=== PATIENT | female | born 1995 | race Two or more races ===

== ENCOUNTER → 2021-02-11 10:17 | Outpatient (BNVA) | payer SELFPAY | DX: Z13.89 Encounter for screening for other disorder (principal) | CPT/HCPCS: 36415 ==

== ENCOUNTER 2021-05-12 09:18 | Outpatient (REF) | payer OTHER, SELFPAY ==
[2021-05-12 09:52] LABS: Binax Internal Control QC Valid; Binax Now Covid-19 Ag Negative (Negative)
[2021-05-12 11:47] LABS: Hematocrit 33.9 % (37.0-47.0); Hemoglobin 10.8 g/dl (12.0-16.0); Mean Corpuscular HGB Conc 31.9 g/dl (31.0-35.0); Mean Corpuscular Hemoglobin 32.3 pg (27.0-33.0); Mean Corpuscular Volume 101.5 fL (80.0-98.0); Mean Platelet Volume 11.8 fL (9.4-12.3); Platelet Count 307 X10*3/uL (160-400); Red Blood Count 3.34 X10*6/uL (4.20-5.50); Red Cell Distribution Width 12.5 % (11.0-16.0); White Blood Count 5.2 X10*3/uL (4.8-10.8)
[2021-05-12 12:05] LABS: Alanine Aminotransferase 12 U/L (0-31); Albumin Level 4.1 g/dL (3.5-5.0); Alkaline Phosphatase 61 U/L (39-117); Anion Gap 9 (12-20); Aspartate Amino Transferase 16 U/L (5-31); Bilirubin Direct < 0.2 mg/dL (0.0-0.5); Bilirubin Total 0.3 mg/dL (0.0-1.0); Blood Urea Nitrogen 10 mg/dL (9-16); Calcium 9.5 mg/dL (8.4-10.2); Carbon Dioxide 26 mmol/L (22-29); Chloride 105 mmol/L (96-108); Estimated Glomerular Filt Rate > 60; Glucose Random 99 mg/dL (60-115); Potassium 4.4 mmol/L (3.3-5.1); Sodium 136 mmol/L (135-145); Total Protein 7.5 g/dL (6.5-8.0)
[2021-05-12 12:24] LABS: Thyroid Stimulating Hormone 1.17 uIU/mL (0.32-4.0)
[2021-05-12 12:43] LABS: Monotest Negative (Negative)
== END 2021-05-12 09:19 | disposition home or self-care (01) ==
LOC: HO.HMGCLDS 09:18
PROVIDERS: Visit Provider Internal Medicine
DX: J06.9 Acute upper respiratory infection, unspecified (principal)
CPT/HCPCS: 36415; 80048; 80076; 84443; 85027; 86308

== ENCOUNTER 2021-06-24 13:22 | Emergency (ER) | payer OTHER, SELFPAY ==
--- NOTE | ~2021-06-24 | CT_ITS ---
EXAMINATION: CT HEAD WITHOUT CONTRAST CLINICAL INFORMATION: Headache COMPARISON: None TECHNIQUE: Contiguous axial imaging was performed from the skull base to vertex without intravenous administration of contrast. This CT examination was performed using dose optimization techniques as appropriate, variously including the following: *Automated exposure control *Adjustment of mA and/or kV according to patient size (this includes techniques or standardized protocols for targeted exams where dose is matched to indication/reason for exam; i.e. extremities or head) *Use of iterative reconstruction technique DLP: 640 mGy-cm FINDINGS: There is no evidence of acute intracranial hemorrhage or territorial infarction. No abnormal mass effect or midline shift is seen. Wilson to white matter differentiation is well preserved. No extra-axial fluid collections are identified. The ventricles are normal in size. There is no abnormal attenuation within the brain parenchyma. The osseous structures and soft tissues are normal. The mastoid air cells and visualized portions of the paranasal sinuses are well aerated. CT/CT head/brain wo con IMPRESSION: No acute intracranial pathology.
[2021-06-24 14:13] VITALS: BP 122/62; PULSE 62; RESP 18; TEMP 37.1; O2SAT 100; BMI 22.7
[2021-06-24 14:26] LABS: MANUAL DIFF FLAG NO
[2021-06-24 14:38] LABS: Basophils Percent Auto 0.8 % (0-2); Eosinophils Absolute Auto 0.2 X10*3/uL (0.0-0.4); Eosinophils Percent Auto 4.3 % (0-4); Hematocrit 36.5 % (37.0-47.0); Hemoglobin 11.7 g/dl (12.0-16.0); Lymphocytes Absolute Auto 1.8 X10*3/uL (1.2-4.9); Lymphocytes Percent Auto 34.7 % (20-40); Mean Corpuscular HGB Conc 32.1 g/dl (31.0-35.0); Mean Corpuscular Hemoglobin 32.2 pg (27.0-33.0); Mean Corpuscular Volume 100.6 fL (80.0-98.0); Mean Platelet Volume 10.9 fL (9.4-12.3); Monocytes Absolute Auto 0.5 X10*3/uL (0.1-1.2); Neutrophils Absolute Auto 2.7 x10*3/uL (2.0-8.3); Neutrophils Percent Auto 51.2 % (45-73); Platelet Count 326 X10*3/uL (160-400); Red Blood Count 3.63 X10*6/uL (4.20-5.50); Red Cell Distribution Width 12.7 % (11.0-16.0); White Blood Count 5.3 X10*3/uL (4.8-10.8)
[2021-06-24 14:45] LABS: Anion Gap 8 (12-20); Blood Urea Nitrogen 10 mg/dL (9-16); Calcium 10.2 mg/dL (8.4-10.2); Carbon Dioxide 29 mmol/L (22-29); Chloride 106 mmol/L (96-108); Creatinine Clr Calc Pharmacy 106.7; Estimated Glomerular Filt Rate > 60; Glucose Random 88 mg/dL (60-115); Potassium 4.3 mmol/L (3.3-5.1); Sodium 139 mmol/L (135-145)
[2021-06-24 15:24] LABS: Alanine Aminotransferase 13 U/L (0-31); Albumin Level 4.2 g/dL (3.5-5.0); Alkaline Phosphatase 59 U/L (39-117); Aspartate Amino Transferase 18 U/L (5-31); Bilirubin Direct < 0.2 mg/dL (0.0-0.5); Bilirubin Total 0.5 mg/dL (0.0-1.0); Total Protein 7.7 g/dL (6.5-8.0)
[2021-06-24 15:27] LABS: Immature Retic Fraction 16.3 % (3.0-15.9); Retic HGB Equivalent 37.6 pg (30.0-35.0); Reticulocyte Percent 1.7 % (0.5-1.8); Reticulocytes Absolute 0.063 X10*6/uL (0.026-0.095)
[2021-06-24 21:39] VITALS: BP 119/74; PULSE 64; RESP 16; O2SAT 98
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
== END 2021-06-24 23:40 | disposition home or self-care (01) ==
PROVIDERS: Physician Assistant; Emergency Provider Internal Medicine
DX: D57.1 Sickle-cell disease without crisis (principal); R51.9 Headache, unspecified; R53.83 Other fatigue; Z79.899 Other long term (current) drug therapy
CPT/HCPCS: 36415; 70450; 80048; 80076; 85025; 85045; 99284

== ENCOUNTER 2021-11-25 15:19 | Outpatient (REF) | payer OTHER, SELFPAY ==
[2021-11-25 15:40] LABS: Binax Internal Control QC Valid
[2021-11-25 15:45] LABS: Binax Now Covid-19 Ag Negative (Negative)
[2021-11-25 16:31] LABS: MANUAL DIFF FLAG NO
[2021-11-25 16:34] LABS: Basophils Percent Auto 0.6 % (0-2); Eosinophils Absolute Auto 0.2 X10*3/uL (0.0-0.4); Eosinophils Percent Auto 3.6 % (0-4); Hematocrit 36.2 % (37.0-47.0); Hemoglobin 11.8 g/dl (12.0-16.0); Imm Gran Abs Auto 0.02 X10*3/uL (0.00-0.03); Imm Gran Pct Auto 0.3 % (0.0-0.4); Lymphocytes Absolute Auto 1.7 X10*3/uL (1.2-4.9); Lymphocytes Percent Auto 26.6 % (20-40); Mean Corpuscular HGB Conc 32.6 g/dl (31.0-35.0); Mean Corpuscular Hemoglobin 32.6 pg (27.0-33.0); Mean Platelet Volume 11.3 fL (9.4-12.3); Monocytes Absolute Auto 0.5 X10*3/uL (0.1-1.2); Monocytes Percent Auto 7.7 % (2-11); Neutrophils Absolute Auto 3.9 x10*3/uL (2.0-8.3); Neutrophils Percent Auto 61.2 % (45-73); Platelet Count 307 X10*3/uL (160-400); Red Blood Count 3.62 X10*6/uL (4.20-5.50); Red Cell Distribution Width 12.7 % (11.0-16.0); White Blood Count 6.4 X10*3/uL (4.8-10.8)
[2021-11-25 16:52] LABS: Anion Gap 15 (12-20); Blood Urea Nitrogen 6 mg/dL (9-16); Calcium 9.6 mg/dL (8.4-10.2); Carbon Dioxide 25 mmol/L (22-29); Chloride 102 mmol/L (96-108); Estimated Glomerular Filt Rate > 60; Glucose Random 91 mg/dL (60-115); Potassium 4.1 mmol/L (3.3-5.1); Sodium 138 mmol/L (135-145)
[2021-11-25 17:14] LABS: Thyroid Stimulating Hormone 0.79 uIU/mL (0.32-4.0)
== END 2021-11-25 15:20 | disposition home or self-care (01) ==
LOC: HO.HMGCLDS 15:19
PROVIDERS: Visit Provider Emergency Medicine
DX: R53.83 Other fatigue (principal); J06.9 Acute upper respiratory infection, unspecified; R53.1 Weakness; Z20.822 Contact with and (suspected) exposure to COVID-19
CPT/HCPCS: 80048; 84443; 85025; 87811; C9803

== ENCOUNTER 2022-01-13 09:48 | Outpatient (REF) | payer OTHER, SELFPAY ==
[2022-01-13 12:04] LABS: Hematocrit 35.1 % (37.0-47.0); Hemoglobin 11.3 g/dl (12.0-16.0); Mean Corpuscular HGB Conc 32.2 g/dl (31.0-35.0); Mean Corpuscular Volume 99.4 fL (80.0-98.0); Mean Platelet Volume 11.4 fL (9.4-12.3); Platelet Count 312 X10*3/uL (160-400); Red Blood Count 3.53 X10*6/uL (4.20-5.50); Red Cell Distribution Width 12.3 % (11.0-16.0); White Blood Count 5.5 X10*3/uL (4.8-10.8)
[2022-01-13 13:19] LABS: Alanine Aminotransferase 10 U/L (0-31); Alkaline Phosphatase 56 U/L (39-117); Anion Gap 12 (12-20); Aspartate Amino Transferase 15 U/L (5-31); Bilirubin Total 0.4 mg/dL (0.0-1.0); Blood Urea Nitrogen 8 mg/dL (9-16); Calcium 9.4 mg/dL (8.4-10.2); Carbon Dioxide 26 mmol/L (22-29); Chloride 105 mmol/L (96-108); Cholesterol 239 mg/dL; Estimated Glomerular Filt Rate > 60; Glucose Fasting 96 mg/dL (60-99); HDL Cholesterol 49 mg/dL; LDL Cholesterol Calculated 178 mg/dl; Potassium 4.4 mmol/L (3.3-5.1); Sodium 139 mmol/L (135-145); Total Protein 7.3 g/dL (6.5-8.0); Triglycerides 62 mg/dL
== END 2022-01-13 09:49 | disposition home or self-care (01) ==
LOC: HO.WFDLDS 09:48
PROVIDERS: Visit Provider Hospitalist
DX: Z00.00 Encounter for general adult medical examination without abnormal findings (principal)
CPT/HCPCS: 36415; 80053; 80061; 84443; 85027

== ENCOUNTER 2022-05-26 11:26 | Outpatient (REF) | payer OTHER, SELFPAY ==
[2022-05-26 13:56] LABS: Iron 127 mcg/dL (30-160); Percent Iron Saturation 40 % (15-50); Total Iron Binding Capacity 316 mcg/dL (228-428); Unsaturated Iron Binding 189 ug/dL
[2022-05-26 14:16] LABS: Folate 15.7 ng/mL (> or = 4.0); Vitamin B12 943 pg/mL (200-900)
[2022-06-01 17:13] LABS: Vitamin C 0.4 mg/dL (0.3-2.7)
== END 2022-05-26 11:27 | disposition home or self-care (01) ==
LOC: HO.WFDLDS 11:26
PROVIDERS: Visit Provider Hospitalist
DX: D64.9 Anemia, unspecified (principal)
CPT/HCPCS: 36415; 82180; 82607; 82746; 83540

== ENCOUNTER 2022-11-06 15:02 | Inpatient (IN) | payer OTHER, SELFPAY ==
--- OUTSIDE RECORDS SUMMARY | 2022-11-06 15:04 | XMS_ITS | Continuity of Care Document ---
Author Name Unknown Organization [facility] Address [address] [place] [address]- Care Team Providers Care Supervisor Cigar Making Machine Name Role Phone Not on Staff, PCP Primary Care Physician Unavail able Encounter [facility] Date(s): 08/19/21 - 12/17/21 [facility] [address] [place] [address]- Attending Physician: Jason Moeller MD Patient Care team information Personnel Name: Not on Staff, PCP
--- OUTSIDE RECORDS SUMMARY | 2022-11-06 15:04 | XMS_ITS | Continuity of Care Document ---
Author Name Unknown Organization [facility] Address [address] [place] [address]- Care Team Providers Care Government Property Inspector Name Role Phone Not on Staff, PCP Primary Care Physician Unavail able Encounter [facility] Date(s): 07/23/21 - 08/22/21 [facility] [address] [place], [place] [address]
--- OUTSIDE RECORDS SUMMARY | 2022-11-06 15:04 | XMS_ITS | Continuity of Care Document ---
Author Name Unknown Organization [facility] Address [address] [place] [address]- Care Team Providers Care Wound Care Nurse Name Role Phone Not on Staff, PCP Primary Care Physician Unavail able Encounter [facility] Date(s): 11/17/21 - 12/17/21 [facility] [address] [place], [place] [address] Attending Physician: Rayo Crouch Admitting Physician: Rayo Crouch Referring Physician: Rayo Crouch Patient Care team information Personnel Name: Not on Staff, PCP
[2022-11-06 16:18] VITALS: BMI 22.0
[2022-11-06 18:00] VITALS: BP 130/62; PULSE 71; TEMP 36.4; O2SAT 99
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
[2022-11-06] MEDS: Milk of Magnesia 30 ML ORAL.SUSP PO (20:35)
--- NOTE | 2022-11-07 10:05 | HO.PSYADMNOT ---
HPI Date of Service: 11/07/22 Chief Complaint: Major Depressive Disorder,Single episode,moderate Sources of Information: patient interviewed, chart reviewed and crisis/core team assessment reviewed HPI Subjective Notes: Conditional Voluntary Medical Problems Affecting Mental Status: No Narrative: Pt presents after episode of feeling more distraught - had been having trouble sleeping noticing some racing or disorganized thoughts after a bit triggered by increase in emotional intimacy with partner- in attempt to straighten out thoughts took 4 th dose of adderall 10mg which normal she takes tid at most- For sleep they tried melatonin and benadryl and a friend had given them a nyquil like med- none were helping their sleep Pt reports their body just was in shock over this new closeness in relationship to partner There was a report that she took 1/2 bottle of unknown medication ( ny quil?) was seen by roll or tape edge machine operator who suggested coming into hospital Past Psychiatric History: [facility] just at end of an intensive grad program summer at [employer] a few years ago 2019 outpatient therapist Cheryl Herrmann, psychiatrist Thais Pfeiffer MD Medical Evaluation Reviewed: Yes [facility] Narrative: no medical problems Family History: has aunt she is close with emotionally but she lives in [place] - has brother in [place] area doesn't get mental health- Social History: 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[employer]- lives alone in apartment, has parnter, friends Substance History: denies Trauma History: likely Diagnostics Vital Signs (24Hr): Vital Signs - 24 hr 11/06/22 18:00 Temperature 97.5 F Pulse Rate 71 Blood Pressure 130/62 Pulse Oximetry 99 Oxygen Delivery Method Room Air BMI result Body Mass Index 22.0 Meds/Allergies Meds Home Medications Medication Instructions Recorded Confirmed Type Adderall XR 30 mg PO 1XD 11/06/22 11/06/22 History Narrative: also on lexapro 10mg Allergies Allergies Allergy/AdvReac Type Severity Reaction Status Date / Time No Known Allergies Allergy Verified 05/26/22 11:01 Mental Status Exam Mental Status Exam Patient Appearance: Well Grooomed and Appropriate Patient Orientation: Person, Place, Time and Situation Level of Consciousness: Awake Patient Behavior: Appropriate, Guarded, Cooperative and Poor Eye Contact Mood Description: Anxious Affect Description: Blunted Patient Cognition Impaired: No Ability to Follow Directions: Good Speech Pattern: Clear Hallucinations: None Delusions: Not Present Perceptual Disturbances: Depersonalization (hx of dissociation) Thought Process: Intact and Goal Oriented Thought Content: positive for Intact Depressive Symptoms: Increased Anxiety and Difficulty Sleeping Abnormal Motor Activity Signs and Symptoms: Restlessness Judgement: Fair Assessment & Plan Assessment & Plan (1) Anxiety with depression: Status: Acute Code(s): F41.8 - Other specified anxiety disorders Assessment and Plan: ?ptsd, dissociation (2) Insomnia: Status: Acute Code(s): G47.00 - Insomnia, unspecified Assessment and Plan: may also take trazodone- (3) ADHD (attention deficit hyperactivity disorder), inattentive type: Status: Acute Code(s): F90.0 - Attention-deficit hyperactivity disorder, predominantly inattentive type Assessment and Plan: restart adderall but in xr form- will do 10mg today 11/07 if tolerated and pt sleep may get 20mg xr tomorrow but also will start clonidine for insomnia/?adhd/ptsd Plan continue lexapro trial of clonidine and adderall xr coordinate care with dr moreno out pt psych Patient educated on: medication risk/benefits Informed Consent: understands and further education needed Reason for continued inpatient stay Substantial Risk for: inability to function and rapid decompensation Statement Statement: I have reviewed the history and physical and performed a pertinent examination on my patient. No changes have occurred unless specified. If the History and Physical was not performed prior to admission, the Hospitalist's service will be consulted for completing the admission physical. Time Spent With Patient Time: Total time managing care of this patient today ____ minutes.
[2022-11-07] MEDS: Escitalopram Oxalate 20 MG TABLET PO (10:35)
[2022-11-07 10:40] VITALS: BP 113/68; PULSE 75; RESP 16; TEMP 36.8; O2SAT 99
--- NOTE | 2022-11-07 11:02 | P.CONHOSP_ITS ---
History of Present Illness Data of Consult Service Date: 11/07/22 Primary Care Provider: Unknown Physician HPI Reason for consult: medical evaluation 27 year old female with not treated for chronic medical issues who is presently admitted to inpatient Psych for management of PTSD, depression, SI. She denies SI to me. She presents no acute medical issues at this time. Review of Systems Review of Systems: Gen: no fever Resp: no sob, no cough CV: no chest, no KRAFT, no leg edema GI: No n/v, no abd pain Neuro: No confusion Yes all other systems are reviewed and are negative PMFSH Social History Household Members: None Housing: Apartment Do you presently have visiting nurse or other home services: No Alcohol intake: never Patient Tobacco Use Status: Never used Tobacco e-Cigarette/Vaping Use: Never Used Use of substances other than those prescribed or required for medical reasons: No Currently Displaying Signs/Symptoms of Drug Intoxication Withdrawal: No Any prior treatment program specific to substance use: No Have you been hit, kicked, punched, or otherwise hurt by someone within the past year? If so, by whom?: No Do you feel safe in your current relationship?: No Is there a partner from a previous relationship who is making you feel unsafe now?: No Advance Directives: No Advance Directives Information Provided: No Do you have thoughts of harming others: None Do you have a plan to hurt others: No Plan Recently lost weight without trying: No Nutrition Risks: No Nutritional Risk Patient : No : No Poor oral hygiene: No Current occupational status: employed Current occupation: [employer] Allergies Allergy/AdvReac Type Severity Reaction Status Date / Time No Known Allergies Allergy Verified 05/26/22 11:01 Active Medications: Current Medications Acetaminophen (Acetaminophen 325 Mg Tablet) 650 mg PO Q6H PRN PRN Reason: Headache/Pain Mild Scale (1-3) Al Hydroxide/Mg Hydroxide (Magnesium Hydrox/Alum Hydrox 30 Ml Oral.Susp) 30 ml PO Q6H PRN PRN Reason: Heartburn/Nausea Escitalopram Oxalate (Escitalopram Oxalate 20 Mg Tablet) 20 mg PO DAILY [facility] Last Admin: 11/07/22 10:35 Dose: 20 mg Hydroxyzine HCl (Hydroxyzine Hcl 25 Mg Tablet) 25 mg PO Q6H PRN PRN Reason: Anxiety Loratadine (Loratadine 10 Mg Tablet) 10 mg PO DAILY PRN PRN Reason: allergy symptoms Magnesium Hydroxide (Milk Of Magnesia 30 Ml Oral.Susp) 30 ml PO DAILY PRN PRN Reason: Constipation Last Admin: 11/06/22 20:35 Dose: 30 ml Trazodone HCl (Trazodone Hcl 50 Mg Tablet) 50 mg PO BEDTIME MRX1 PRN PRN Reason: Insomnia Home Medications Medication Instructions Recorded Confirmed Last Taken Type Adderall XR 30 mg PO 1XD 11/06/22 11/06/22 Unknown History Physical Exam Vital Signs and Narrative: Vital Signs: Last Vital Signs Temp 98.3 F 11/07/22 10:40 Pulse 75 11/07/22 10:40 Resp 16 11/07/22 10:40 BP 113/68 11/07/22 10:40 Pulse Ox 99 11/07/22 10:40 O2 Del Method Room Air 11/07/22 10:40 BMI result Body Mass Index 22.0 Const: Other: Constitutional: Alert, in no distress Mental Status: Oriented to person, place and time. Eyes: Pupils are equal, round a Respiratory: Clear to auscultation. No wheezing, rales or rhonchi. Cardiovascular: S1 S2 regular. No murmurs, rubs or gallops. Gastrointestinal: Abdomen soft, non-tender, non-distended. Normal bowel sounds.? Neurologic: Cranial nerves II-XII grossly intact. No focal neurological deficits. Moves all extremities spontaneously.? Skin: No rashes or lesions.? Musculoskeletal: No cyanosis or clubbing. Psychiatric: Normal mood and affect? Assessment and Plan (1) Depression: Status: Acute Plan 27 year old female with not treated for chronic medical issues who is presently admitted to inpatient Psych for management of PTSD, depression, SI. She presents no acute medical issues at this time. Pt at this time does not required medical work up or management and recommend continuing Psychiatric care. Thanks Time Spent With Patient Time: Total time managing care of this patient today ____ minutes.
[2022-11-07] MEDS: Dextroamphetamine/Amphetamine XR 10 MG CAP.ER.24H PO (13:04)
--- NOTE | 2022-11-07 18:20 | PC.NURSE ---
PT reports Adderall wearing off as of now 18:20. Appears to be lasting about 5 hours.
[2022-11-07] MEDS: Milk of Magnesia 30 ML ORAL.SUSP PO (19:46)
[2022-11-07 21:00] VITALS: BP 116/73; PULSE 65; TEMP 36.1
[2022-11-07] MEDS: cloNIDine HCL 0.1 MG TABLET PO (21:06)
[2022-11-08 08:35] VITALS: BP 116/80; PULSE 92; RESP 16; TEMP 36.9; O2SAT 98
[2022-11-08] MEDS: Dextroamphetamine/Amphetamine XR 10 MG CAP.ER.24H PO (08:45)
[2022-11-08] MEDS: Escitalopram Oxalate 20 MG TABLET PO (08:45)
--- NOTE | 2022-11-08 11:34 | P.PNPSI_ITS ---
Subjective Subjective Date of Service: 11/08/22 Reason For Visit: Major Depressive Disorder,Single episode,moderate Subjective Notes: Conditional Voluntary Medical Problems Affecting Mental Status: No Interim History: 27 yo feeling much more focused and centered now on adderall xr 20mg the reason she asked for more adderall las tpm was because she was able to sleep yesterday afternoon after getting adderall xr 10mg! Last night clonidine made her feel bad- and doesn't want to take it again- She thinks she can sleep on melatonin if need be She is also on lexapro 10mg now denies s/e and denies current thoughts si Medication Compliance: Yes Side effects from medications: Yes (clonidine made her feel not right ) Attending Groups: Yes Review of Systems Acute medical concerns: No Medical Review of Systems: unchanged Mental Status Exam Mental Status Exam Patient Appearance: Well Grooomed and Appropriate Patient Orientation: Person, Place, Time and Situation Level of Consciousness: Awake and Alert Patient Behavior: Appropriate Mood Description: Calm Thought Process: Intact and Goal Oriented Thought Content: positive for Intact Depressive Symptoms: Difficulty Sleeping Judgement: Good Diagnostics Vital Signs (24Hr): Vital Signs - 24 hr 11/07/22 21:00 Temperature 97.0 F Pulse Rate 65 Blood Pressure 116/73 BMI result Body Mass Index 22.0 Medications Medications Current Medications Acetaminophen (Acetaminophen 325 Mg Tablet) 650 mg PO Q6H PRN PRN Reason: Headache/Pain Mild Scale (1-3) Al Hydroxide/Mg Hydroxide (Magnesium Hydrox/Alum Hydrox 30 Ml Oral.Susp) 30 ml PO Q6H PRN PRN Reason: Heartburn/Nausea Amphetamine/Dextroamphetamine (Dextroamphetamine/Amphetamine Xr 10 Mg Cap.Er.24h) 10 mg PO DAILY [facility] Last Admin: 11/08/22 08:45 Dose: 10 mg Amphetamine/Dextroamphetamine (Dextroamphetamine/Amphetamine Xr 10 Mg Cap.Er.24h) 20 mg PO DAILY [facility] Clonidine HCl (Clonidine Hcl 0.1 Mg Tablet) 0.1 mg PO BEDTIME MRX1 [facility]; Protocol Last Admin: 11/08/22 00:18 Dose: Not Given Escitalopram Oxalate (Escitalopram Oxalate 20 Mg Tablet) 20 mg PO DAILY [facility] Last Admin: 11/08/22 08:45 Dose: 20 mg Hydroxyzine HCl (Hydroxyzine Hcl 25 Mg Tablet) 25 mg PO Q6H PRN PRN Reason: Anxiety Loratadine (Loratadine 10 Mg Tablet) 10 mg PO DAILY PRN PRN Reason: allergy symptoms Magnesium Hydroxide (Milk Of Magnesia 30 Ml Oral.Susp) 30 ml PO DAILY PRN PRN Reason: Constipation Last Admin: 11/07/22 19:46 Dose: 30 ml Trazodone HCl (Trazodone Hcl 50 Mg Tablet) 50 mg PO BEDTIME MRX1 PRN PRN Reason: Insomnia Allergies Allergies Allergy/AdvReac Type Severity Reaction Status Date / Time No Known Allergies Allergy Verified 05/26/22 11:01 Assessment & Plan Assessment & Plan (1) Anxiety with depression: Status: Acute Code(s): F41.8 - Other specified anxiety disorders Assessment and Plan: ?ptsd, dissociation (2) Insomnia: Status: Acute Code(s): G47.00 - Insomnia, unspecified Assessment and Plan: may also take trazodone- (3) ADHD (attention deficit hyperactivity disorder), inattentive type: Status: Acute Code(s): F90.0 - Attention-deficit hyperactivity disorder, predominantly inattentive type Assessment and Plan: restart adderall but in xr form- will do 10mg today 11/07 if tolerated and pt sleep may get 20mg xr tomorrow but also will start clonidine for insomnia/?adhd/ptsd Plan continue lexapro trial of clonidine and adderall xr coordinate care with dr moreno out pt psych 11/08 change clonidine to melaton, contiue adderall xr 20mg qd - 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 Patient educated on: medication risk/benefits Informed Consent: understands Reason for continued inpatient stay Substantial Risk for: rapid decompensation Time Spent With Patient Time: Total time managing care of this patient today ____ minutes.
[2022-11-08] MEDS: Melatonin 3 MG TABLET PO (20:13)
[2022-11-08 20:15] VITALS: BP 114/72; PULSE 74; RESP 16; TEMP 36.7; O2SAT 97
[2022-11-09 06:00] VITALS: BP 112/57; PULSE 80; RESP 18; TEMP 36.4; O2SAT 98
[2022-11-09] MEDS: Escitalopram Oxalate 20 MG TABLET PO (08:14)
[2022-11-09] MEDS: Dextroamphetamine/Amphetamine XR 10 MG CAP.ER.24H 20 MG PO (08:15)
[2022-11-09] MEDS: Dextroamphetamine/Amphetamine XR 10 MG CAP.ER.24H PO (08:15)
--- NOTE | 2022-11-09 15:04 | HO.PSYCHPN ---
Subjective Subjective Date of Service: 11/09/22 Reason For Visit: Major Depressive Disorder,Single episode,moderate Subjective Notes: 3 Day Interim History: Reviewed in team and . Patient presents guarded and brief during 1:1. She reports feeling fine today. Patient reports crisis report to be inaccurate on events prior to admission. Patient stated, I wasn't sleeping for 2 weeks and became suicidal. I then took 4 Lexapro, it wasn't a overdose. But I was taking more Adderall that I was prescribed . Patient reports she is no longer feeling suicidal; pt stated, those feelings went away when I went to the ER and talked to my friend on the phone . Pt is on 3 day notice. T/W spoke with outpatient psychiatrist (Dr.Graham-Brown- craig gao), who stated patient is very guarded at baseline but does not believe her as high risk. Medication Compliance: Yes Side effects from medications: No Review of Systems Constitutional: Reports as per HPI Eyes: Reports as per HPI Reports as per HPI Cardiovascular: Reports as per HPI Respiratory: Reports as per HPI Gastrointestinal: Reports as per HPI Genitourinary: Reports as per HPI Musculoskeletal: Reports as per HPI Skin/Breast: Reports as per HPI Reports as per HPI Psychiatric: Reports as per HPI Endocrine: Reports as per HPI Hematologic/Lymphatic: Reports as per HPI Allergic/Immunologic: Reports as per HPI Mental Status Exam Mental Status Exam Narrative: Pt is alert and oriented; behavior is guarded and calm; dressed in casual attire; mood is described as fine ; eye contact appropriate; Speech is normal rate, volume and prosody and not pressured; no psychomotor agitation/retardation present; thought process is organized; Thought content is on discharge; otherwise pertinent to relevant topics and without any delusional content, paranoid ideations or grandiosity; denies SI/HI. There is no evidence of perceptual disturbance. Patients insight and judgment are poor. Diagnostics Vital Signs (24Hr): Vital Signs - 24 hr 11/08/22 20:15 11/09/22 06:00 Temperature 98.1 F 97.6 F Pulse Rate 74 80 Respiratory Rate 16 18 Blood Pressure 114/72 112/57 L Pulse Oximetry 97 98 Oxygen Delivery Method Room Air Room Air BMI result Body Mass Index 22.0 Medications Medications Current Medications Acetaminophen (Acetaminophen 325 Mg Tablet) 650 mg PO Q6H PRN PRN Reason: Headache/Pain Mild Scale (1-3) Al Hydroxide/Mg Hydroxide (Magnesium Hydrox/Alum Hydrox 30 Ml Oral.Susp) 30 ml PO Q6H PRN PRN Reason: Heartburn/Nausea Amphetamine/Dextroamphetamine (Dextroamphetamine/Amphetamine Xr 10 Mg Cap.Er.24h) 10 mg PO DAILY [facility] Last Admin: 11/09/22 08:15 Dose: 10 mg Amphetamine/Dextroamphetamine (Dextroamphetamine/Amphetamine Xr 10 Mg Cap.Er.24h) 20 mg PO DAILY [facility] Last Admin: 11/09/22 08:15 Dose: 20 mg Escitalopram Oxalate (Escitalopram Oxalate 20 Mg Tablet) 20 mg PO DAILY [facility] Last Admin: 11/09/22 08:14 Dose: 20 mg Hydroxyzine HCl (Hydroxyzine Hcl 25 Mg Tablet) 25 mg PO Q6H PRN PRN Reason: Anxiety Loratadine (Loratadine 10 Mg Tablet) 10 mg PO DAILY PRN PRN Reason: allergy symptoms Magnesium Hydroxide (Milk Of Magnesia 30 Ml Oral.Susp) 30 ml PO DAILY PRN PRN Reason: Constipation Last Admin: 11/07/22 19:46 Dose: 30 ml Melatonin (Melatonin 3 Mg Tablet) 3 mg PO BEDTIME MRX1 PRN PRN Reason: Insomnia Last Admin: 11/08/22 20:13 Dose: 3 mg Trazodone HCl (Trazodone Hcl 50 Mg Tablet) 50 mg PO BEDTIME MRX1 PRN PRN Reason: Insomnia Allergies Allergies Allergy/AdvReac Type Severity Reaction Status Date / Time No Known Allergies Allergy Verified 05/26/22 11:01 Assessment & Plan Assessment & Plan (1) MDD (major depressive disorder): Status: Acute Code(s): F32.9 - Major depressive disorder, single episode, unspecified (2) ADHD (attention deficit hyperactivity disorder), inattentive type: Status: Acute Code(s): F90.0 - Attention-deficit hyperactivity disorder, predominantly inattentive type Assessment and Plan: restart adderall but in xr form- will do 10mg today 11/07 if tolerated and pt sleep may get 20mg xr tomorrow but also will start clonidine for insomnia/?adhd/ptsd (3) PTSD (post-traumatic stress disorder): Status: Acute Code(s): F43.10 - Post-traumatic stress disorder, unspecified Plan continue lexapro trial of clonidine and adderall xr coordinate care with dr moreno out pt psych 11/08 change clonidine to [place] adderall xr 20mg qd - 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 11/09: Patient presents guarded and brief during 1:1. She reports feeling fine today. Patient reports crisis report to be inaccurate on events prior to admission. Patient stated, I wasn't sleeping for 2 weeks and became suicidal. I then took 4 Lexapro, it wasn't a overdose. But I was taking more Adderall that I was prescribed . Patient reports she is no longer feeling suicidal; pt stated, those feelings went away when I went to the ER and talked to my friend on the phone . Pt is on 3 day notice. T/W spoke with outpatient psychiatrist (- release obtained), who stated patient is very guarded at baseline but does not believe her as high risk. Patient educated on: diagnosis, medication risk/benefits and therapeutic strategies Informed Consent: understands Reason for continued inpatient stay Substantial Risk for: med/psych decompensation Time Spent With Patient Time: Total time managing care of this patient today _30___ minutes.
[2022-11-09 18:00] VITALS: BP 129/60; PULSE 71; TEMP 2.3; TEMP 36.2; O2SAT 100
[2022-11-09] MEDS: Melatonin 3 MG TABLET PO (21:09)
[2022-11-10 08:00] VITALS: BP 130/61; PULSE 89; RESP 18; TEMP 31.6; O2SAT 95
[2022-11-10] MEDS: Escitalopram Oxalate 20 MG TABLET PO (08:27)
[2022-11-10] MEDS: Dextroamphetamine/Amphetamine XR 10 MG CAP.ER.24H 20 MG PO (08:27)
[2022-11-10] MEDS: Dextroamphetamine/Amphetamine XR 10 MG CAP.ER.24H PO (08:27)
--- NOTE | 2022-11-10 12:20 | P.PNPSI_ITS ---
Subjective Subjective Date of Service: 11/10/22 Reason For Visit: Major Depressive Disorder,Single episode,moderate Subjective Notes: 3 Day Interim History: Reviewed in team and . Patient continues to present guarded during 1:1; reports feeling fine today. Patient became tearful and stated, I knew the system was broken. If anyone needs more programs or services it's hard to get . T/W asked if there was a specific program she was looking for a referral to which pt denied. She reports plan to return home, and work; pt states she will follow up with her outpatient providers and look for a trauma therapist and group to attend. pt denies SI/HI. 3 day is up tomorrow. Medication Compliance: Yes Side effects from medications: No Attending Groups: Yes Review of Systems Review of Systems Gen: no fever Resp: no sob, no cough CV: no chest, no KRAFT, no leg edema GI: No n/v, no abd pain Neuro: No confusion Yes all other systems are reviewed and are negative Constitutional: Reports as per HPI Eyes: Reports as per HPI Reports as per HPI Cardiovascular: Reports as per HPI Respiratory: Reports as per HPI Gastrointestinal: Reports as per HPI Genitourinary: Reports as per HPI Musculoskeletal: Reports as per HPI Skin/Breast: Reports as per HPI Reports as per HPI Psychiatric: Reports as per HPI Endocrine: Reports as per HPI Hematologic/Lymphatic: Reports as per HPI Allergic/Immunologic: Reports as per HPI Mental Status Exam Mental Status Exam Narrative: Pt is alert and oriented; behavior is guarded and calm; dressed in casual attire; mood is described as fine ; eye contact appropriate; Speech is normal rate, volume and prosody and not pressured; no psychomotor agitation/retardation present; thought process is organized; Thought content is on discharge; otherwise pertinent to relevant topics and without any delusional content, paranoid ideations or grandiosity; denies SI/HI. There is no evidence of perceptual disturbance.Patients insight and judgment are fair. Patient Appearance: Well Grooomed and Appropriate Patient Orientation: Person, Place, Time and Situation Level of Consciousness: Awake and Alert Patient Behavior: Appropriate Mood Description: Calm Affect Description: Blunted Patient Cognition Impaired: No Ability to Follow Directions: Good Speech Pattern: Clear Diagnostics Vital Signs (24Hr): Vital Signs - 24 hr 11/09/22 18:00 11/10/22 08:00 Temperature 36.2 F L 89 F L Pulse Rate 71 89 Respiratory Rate 18 Blood Pressure 129/60 130/61 Pulse Oximetry 100 95 Oxygen Delivery Method Room Air Room Air BMI result Body Mass Index 22.0 Medications Medications Current Medications Acetaminophen (Acetaminophen 325 Mg Tablet) 650 mg PO Q6H PRN PRN Reason: Headache/Pain Mild Scale (1-3) Al Hydroxide/Mg Hydroxide (Magnesium Hydrox/Alum Hydrox 30 Ml Oral.Susp) 30 ml PO Q6H PRN PRN Reason: Heartburn/Nausea Amphetamine/Dextroamphetamine (Dextroamphetamine/Amphetamine Xr 10 Mg Cap.Er.24h) 10 mg PO DAILY [facility] Last Admin: 11/10/22 08:27 Dose: 10 mg Amphetamine/Dextroamphetamine (Dextroamphetamine/Amphetamine Xr 10 Mg Cap.Er.24h) 20 mg PO DAILY [facility] Last Admin: 11/10/22 08:27 Dose: 20 mg Escitalopram Oxalate (Escitalopram Oxalate 20 Mg Tablet) 20 mg PO DAILY [facility] Last Admin: 11/10/22 08:27 Dose: 20 mg Hydroxyzine HCl (Hydroxyzine Hcl 25 Mg Tablet) 25 mg PO Q6H PRN PRN Reason: Anxiety Loratadine (Loratadine 10 Mg Tablet) 10 mg PO DAILY PRN PRN Reason: allergy symptoms Magnesium Hydroxide (Milk Of Magnesia 30 Ml Oral.Susp) 30 ml PO DAILY PRN PRN Reason: Constipation Last Admin: 11/07/22 19:46 Dose: 30 ml Melatonin (Melatonin 3 Mg Tablet) 3 mg PO BEDTIME MRX1 PRN PRN Reason: Insomnia Last Admin: 11/09/22 21:09 Dose: 3 mg Trazodone HCl (Trazodone Hcl 50 Mg Tablet) 50 mg PO BEDTIME MRX1 PRN PRN Reason: Insomnia Allergies Allergies Allergy/AdvReac Type Severity Reaction Status Date / Time No Known Allergies Allergy Verified 05/26/22 11:01 Assessment & Plan Assessment & Plan (1) MDD (major depressive disorder): Status: Acute Code(s): F32.9 - Major depressive disorder, single episode, unspecified (2) ADHD (attention deficit hyperactivity disorder), inattentive type: Status: Acute Code(s): F90.0 - Attention-deficit hyperactivity disorder, predominantly inattentive type Assessment and Plan: restart adderall but in xr form- will do 10mg today 11/07 if tolerated and pt sleep may get 20mg xr tomorrow but also will start clonidine for insomnia/?adhd/ptsd (3) PTSD (post-traumatic stress disorder): Status: Acute Code(s): F43.10 - Post-traumatic stress disorder, unspecified Plan continue lexapro trial of clonidine and adderall xr coordinate care with dr moreno out pt psych 11/08 change clonidine to melaton, contiue adderall xr 20mg qd - 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 11/09: Patient presents guarded and brief during 1:1. She reports feeling fine today. Patient reports crisis report to be inaccurate on events prior to admission. Patient stated, I wasn't sleeping for 2 weeks and became suicidal. I then took 4 Lexapro, it wasn't a overdose. But I was taking more Adderall that I was prescribed . Patient reports she is no longer feeling suicidal; pt stated, those feelings went away when I went to the ER and talked to my friend on the phone . Pt is on 3 day notice. T/W [facility] who stated patient is very guarded at baseline but does not believe her as high risk. 11/10: Patient continues to present guarded during 1:1; reports feeling fine today. Patient became tearful and stated, I knew the system was broken. If anyone needs more programs or services it's hard to get . T/W asked if there was a specific program she was looking for a referral to which pt denied. She reports plan to return home, and work; pt states she will follow up with her outpatient providers and look for a trauma therapist and group to attend. pt denies SI/HI. 3 day is due tomorrow. Patient educated on: diagnosis, medication risk/benefits and therapeutic strategies Informed Consent: understands Reason for continued inpatient stay Substantial Risk for: stable for discharge Time Spent With Patient Time: Total time managing care of this patient today _30___ minutes.
[2022-11-10 18:00] VITALS: BP 135/63; PULSE 74; RESP 16; TEMP 37; O2SAT 99
[2022-11-10] MEDS: Melatonin 3 MG TABLET PO (20:17)
[2022-11-11 08:30] VITALS: BP 120/65; PULSE 72; RESP 16; TEMP 36.7; O2SAT 99
[2022-11-11] MEDS: Escitalopram Oxalate 20 MG TABLET PO (08:44)
[2022-11-11] MEDS: Dextroamphetamine/Amphetamine XR 10 MG CAP.ER.24H 20 MG PO (08:44)
[2022-11-11] MEDS: Dextroamphetamine/Amphetamine XR 10 MG CAP.ER.24H PO (08:49)
--- NOTE | 2023-01-12 17:32 | PM.PSYDC ---
DS: Providers Provider Date of Service: 11/11/22 Date of admission: 11/06/22 15:02 Date of discharge: 11/11/22 Primary care physician: Unknown Physician Admitting clinician: Mary Stearns Consults: 11/06/22 15:05 Consult to Hospitalist Routine Comment: Consulting Provider: Hospitalist Reason For Exam: CHD Transfer Attending physician on discharge: Johnathan Pearson Discharging clinician: Johnathan Pearson DS: Diagnosis Discharge Diagnosis (1) MDD (major depressive disorder): Status: Acute (2) ADHD (attention deficit hyperactivity disorder), inattentive type: Status: Acute (3) PTSD (post-traumatic stress disorder): Status: Acute DS: Medications Discharge Medications Home Medications: Home Medications Medication Instructions Recorded Confirmed Adderall XR 30 mg PO 1XD 11/06/22 11/25/22 Previous Rx's Medication Instructions Recorded cetirizine 10 mg tablet (Zyrtec) 10 mg PO DAILY PRN allergy 07/30/22 symptoms 3 months #90 tabs escitalopram oxalate 20 mg tablet 20 mg PO DAILY 3 months #90 tabs 07/30/22 Mental Status Exam Mental Status Exam Patient Appearance: Well Grooomed and Appropriate Patient Orientation: Person, Place, Time and Situation Level of Consciousness: Awake and Alert Patient Behavior: Appropriate Mood Description: Anxious Affect Description: Blunted Patient Cognition Impaired: No Ability to Follow Directions: Good Speech Pattern: Clear Hallucinations: None Delusions: Not Present Depressive Symptoms: Increased Anxiety and Insomnia Judgement: Fair Judgement and Insight: Was somewhat difficult to engage upset regarding limitations on referral and treatment options stated she was future oriented denied any self-harming thoughts DS: Summary Hospital Course Hospital Course: [address] [address] Psychiatry Admission Note (In) Signed Patient: Chrissy De Leon MR#: [id number] : 1995 Acct:[id number] Age/Sex: 27 / F Loc: .PM5 511-[address]: Anshul Hayes MD cc: Mary Oscar MD~ HPI Date of Service: 11/07/22 Chief Complaint: Major Depressive Disorder,Single episode,moderate Sources of Information: patient interviewed, chart reviewed and crisis/core team assessment reviewed HPI Subjective Notes: Conditional Voluntary Medical Problems Affecting Mental Status: No Narrative: Pt presents after episode of feeling more distraught - had been having trouble sleeping noticing some racing or disorganized thoughts after a bit triggered by increase in emotional intimacy with partner- in attempt to straighten out thoughts took 4 th dose of adderall 10mg which normal she takes tid at most- For sleep they tried melatonin and benadryl and a friend had given them a nyquil like med- none were helping their sleep Pt reports their body just was in shock over this new closeness in relationship to partner There was a report that she took 1/2 bottle of unknown medication ( ny quil?) was seen by cafeteria food server who suggested coming into hospital Past Psychiatric History: [facility] just at end of an intensive grad program summer at [employer] a few years ago 2019 outpatient therapist Cheryl Herrmann, psychiatrist Thais Pfeiffer MD Medical Evaluation Reviewed: Yes [facility] Narrative: no medical problems Family History: has aunt she is close with emotionally but she lives in [place] - has brother in [place] area doesn't get mental health- Social History: 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[employer]- lives alone in apartment, has parnter, friends Substance History: denies Trauma History: likely Diagnostics Vital Signs (24Hr): Vital Signs - 24 hr 11/06/22 18:00 Temperature 97.5 F Pulse Rate 71 Blood Pressure 130/62 Pulse Oximetry 99 Oxygen Delivery Method Room Air BMI result Body Mass Index 22.0 Meds/Allergies Meds Home Medications Medication Instructions Recorded Confirmed Type Adderall XR 30 mg PO 1XD 11/06/22 11/06/22 History Narrative: also on lexapro 10mg Allergies Allergies Allergy/AdvReac Type Severity Reaction Status Date / Time No Known Allergies Allergy Verified 05/26/22 11:01 Mental Status Exam Mental Status Exam Patient Appearance: Well Grooomed and Appropriate Patient Orientation: Person, Place, Time and Situation Level of Consciousness: Awake Patient Behavior: Appropriate, Guarded, Cooperative and Poor Eye Contact Mood Description: Anxious Affect Description: Blunted Patient Cognition Impaired: No Ability to Follow Directions: Good Speech Pattern: Clear Hallucinations: None Delusions: Not Present Perceptual Disturbances: Depersonalization (hx of dissociation) Thought Process: Intact and Goal Oriented Thought Content: positive for Intact Depressive Symptoms: Increased Anxiety and Difficulty Sleeping Abnormal Motor Activity Signs and Symptoms: Restlessness Judgement: Fair Assessment & Plan Assessment & Plan (1) Anxiety with depression: Status: Acute Code(s): F41.8 - Other specified anxiety disorders Assessment and Plan: ?ptsd, dissociation (2) Insomnia: Status: Acute Code(s): G47.00 - Insomnia, unspecified Assessment and Plan: may also take trazodone- (3) ADHD (attention deficit hyperactivity disorder), inattentive type: Status: Acute Code(s): F90.0 - Attention-deficit hyperactivity disorder, predominantly inattentive type Assessment and Plan: restart adderall but in xr form- will do 10mg today 11/07 if tolerated and pt sleep may get 20mg xr tomorrow but also will start clonidine for insomnia/?adhd/ptsd Plan continue lexapro trial of clonidine and adderall xr coordinate care with dr moreno out pt psych Patient educated on: medication risk/benefits Informed Consent: understands and further education needed Reason for continued inpatient stay Substantial Risk for: inability to function and rapid decompensation Statement Statement: I have reviewed the history and physical and performed a pertinent examination on my patient. No changes have occurred unless specified. If the History and Physical was not performed prior to admission, the Hospitalist's service will be consulted for completing the admission physical. Hospital course The patient was admitted to is an of Psychiatry by Dr. mary Barrow . Patient was admitted with anxiety insomnia history of J[place] question of PTSD and depression. The patient's psychiatrist Dr. Thais pfeiffer she sees Cheryl Herrmann for psychotherapy. Patient had been admitted with some degree of intense anxiety after moderately over using a NyQuil type medication as a way to sleep and to calm herself. She later did state that she had been overusing her Adderall and did have transient suicidal feelings but had not been feeling that way for period of time. She did 1 a program for PTSD in was somewhat upset when there was not an inpatient program for PTSD was not interested in partial hospital nor did she want other outpatient therapy referrals. Patient was somewhat irritable dysphoric at the time discharge please see social Work note by Ave Kumar for full information and discharge planning attempts. Patient denied any self-harming thoughts time of discharge him was discharged on a 3 day notice. She was continued Lexapro and Adderall was continued. Patient was somewhat anxious irritable with time of discharge but future oriented and did not wish to social work to make any outpatient referral changes. She was seeing Dr. Cheryl Herrmann and Dr. Thais pfeiffer prior to admission Would benefit from trauma focused therapy on an outpatient basis Time spent discussing smoking cessation with patient: 3 to 10 minutes Status at Discharge Cognitive/behavioral status at discharge: Denied self-harm alert oriented Functional status at discharge: independent ambulation Time Spent with Patient Time attestation: Total time managing care of this patient today ____ minutes. Time spent: Less than 30 minutes Discharge Plan Discharge Anticipated Discharge Date/Time: 11/11/22 11:26 Patient Disposition: Home, Self-Care Discharge Diagnosis: PTSD ADHD Referrals: Psychiatrist: Dr. Thais Pfeiffer ([facility]) [Other] - 11/18/22 11:20 am (Appointment is in person at the office ) Physician,Del Patel [Primary Care Provider] - 1 Week (referred to [phone]) Discharge Medications: Continued cetirizine [Zyrtec] 10 mg tablet 10 mg PO DAILY PRN (Reason: allergy symptoms) 90 Days Qty: 90 1RF escitalopram oxalate 20 mg tablet 20 mg PO DAILY 90 Days Qty: 90 1RF Adderall XR 30 mg capsule 30 mg PO 1XD Discharge Orders: Discharge Order (Routine); Ordered 11/11/22 Ordered By: Keerthi Narvaez Diet: Regular diet Activity on Discharge: As tolerated Stand Alone Forms: Patient Portal Discharge page, Community Support Care Plan Goals: 1. Maintain mood 2. No SI/HI 3. No signs of psychosis or delusions Health Concerns: Follow up with PCP Plan of Treatment: 1. take medications as prescribed 2. go to nearest ED or call 911 in event of emergency Assessment: Pt bright, non labile. NO SI/HI. No psychosis or delusions. No aggression towards self or others Discharge Date/Time: 11/11/22 11:59
== END 2022-11-11 11:59 | disposition home or self-care (01) | DRG 754 ==
PROVIDERS: Admitting Provider Psychiatry & Neurology Psychiatry; Responsible Provider Registered Nurse; Visit Provider Psychiatry & Neurology Psychiatry
DX: F32.9 Major depressive disorder, single episode, unspecified (principal); R45.851 Suicidal ideations; F41.8 Other specified anxiety disorders; G47.00 Insomnia, unspecified; F43.10 Post-traumatic stress disorder, unspecified; F90.0 Attention-deficit hyperactivity disorder, predominantly inattentive type; Z79.899 Other long term (current) drug therapy

== ENCOUNTER → 2022-11-06 15:02 | Outpatient (BNV) | payer OTHER, SELFPAY | PROVIDERS: Admitting Provider Psychiatry & Neurology Psychiatry; Responsible Provider Registered Nurse; Visit Provider Registered Nurse | DX: F33.2 Major depressive disorder, recurrent severe without psychotic features (principal); F90.0 Attention-deficit hyperactivity disorder, predominantly inattentive type; F43.11 Post-traumatic stress disorder, acute | CPT/HCPCS: 99231 ==

== ENCOUNTER → 2022-11-06 15:02 | Outpatient (BNV) | payer OTHER, SELFPAY | PROVIDERS: Admitting Provider Psychiatry & Neurology Psychiatry; Visit Provider Internal Medicine | DX: Z02.2 Encounter for examination for admission to residential institution (principal) | CPT/HCPCS: 99429 ==

== ENCOUNTER → 2022-11-06 15:02 | Outpatient (BNV) | payer OTHER, SELFPAY | PROVIDERS: Admitting Provider Psychiatry & Neurology Psychiatry; Responsible Provider Registered Nurse; Visit Provider Psychiatry & Neurology Psychiatry | DX: F33.2 Major depressive disorder, recurrent severe without psychotic features (principal); F90.0 Attention-deficit hyperactivity disorder, predominantly inattentive type; F43.11 Post-traumatic stress disorder, acute | CPT/HCPCS: 99232; 99238 ==

== ENCOUNTER 2022-11-25 15:52 | Outpatient (AMB) | payer OTHER, SELFPAY ==
[2022-11-25 15:59] VITALS: BP 112/66; PULSE 77; RESP 12; TEMP 36.5; O2SAT 99; BMI 24.8
--- NOTE | 2022-11-25 15:59 | A.OFFPC_ITS ---
Vital Signs 11/25/22 15:59 Height 5 ft 7 in Weight 158 lb 4 oz BMI 24.8 BP 112/66 Blood Pressure Location Lt brachial Position Sitting Respiration 12 Pulse 77 Pulse Source Pulse Oximeter Temp 97.7 F Temp Source Temporal Artery Scan Pulse Oximetry (%) 99 Oxygen Delivery Method Room Air Intake Visit Reasons: [facility], Major Depressive Disorder 11/05-11/11 Intake Note: Patient states she hasnt been having regular bowel movement as she should. Patient has been drinking prune juice to help but she is concerned that her body isnt regulating by itself to use the bathroom. Care Services Manager Required: No Accompanied by: Self / Same As Patient Allergies No Known Allergies Allergy (Verified 11/25/22 16:17) Medication List - Last Reconciled 11/25/22 by Ian Diaz CNP [Adderall XR 30 mg PO 1XD] cetirizine (Zyrtec) 10 mg PO DAILY PRN 3 months escitalopram oxalate 20 mg PO DAILY 3 months Tobacco use date assessed: 11/25/22 Dental Screening Dental Screen Date: 11/25/22 Did you have a dental visit in the last 12 months?: Yes Did you have a dental problem in the last 6 months where you did not have access to dental care?: No Was dental information given to patient?: No HPI HPI Comments History of Present Illness Details 27[facility]. She was admitted at [facility] between 11/05/2022 and 11/11/2022 for major depression. She notes seek psychiatric elevation because she was unable to sleep despite taking melatonin. Her former PCP is GURU who is no longer with the practice. She notes that her mood and sleep have improved with current treatment regimen. She states that she is followed by a psychiatrist at [place] monthly and sees a therapist every other week. Her psychiatrist manages her psychotropic medications. She has history of ADHD, MDD, and PTSD. She notes she did have a bowel movement for 4 days symptom last week and therefore has been drinking prune juice with regularity. She denies acute symptoms at this time. [facility] Medical History No pertinent past medical history Surgical History H/O tooth extraction Family History (Updated 11/25/22 @ 16:07 by Nancy Brown MA) Other Mental health disorder Substance abuse Social History Household Members: None Housing: Apartment Do you presently have visiting nurse or other home services: No Alcohol intake: never Patient Tobacco Use Status: Never used Tobacco e-Cigarette/Vaping Use: Never Used service: No Current occupational status: employed Current occupation: [employer] Sexual orientation: Don't Know Cognitive needs: No Hearing needs: No Vision needs: No Questionnaire PHQ-9 Over the last 2 weeks, how often have you been bothered by any of the following problems? 1. Little interest or pleasure in doing things: several days 2. Feeling down, depressed, or hopeless: several days 3. Trouble falling or staying asleep, or sleeping too much: not at all 4. Feeling tired or having little energy: more than half the days 5. Poor appetite or overeating: nearly every day 6. Feeling bad about yourself - or that you are a failure or have let yourself or your family down: not at all 7. Trouble concentrating on things, such as reading the newspaper or watching television: several days 8. Moving or speaking so slowly that other people could have noticed. Or the opposite - being so fidgety or restless that you have been moving around a lot more than usual: more than half the days 9. Thoughts that you would be better off or of hurting yourself in some way: not at all Total score: 10 Depression Screening Interpretation: Positive Depression Screening Follow-up: Existing condition and In treatment Depression Screening Done: Yes Source: Developed by Drs. Martin Beard, Rolanda Olivier, Mickey Messina and colleagues, with an educational lasha from [employer]. Thrive Questionnaire Date Thrive assessed: 04/30/22 NOMI-7 AMB Questionnaire NOMI-7 Date NOMI - 7 assessed: 11/25/22 Feeling nervous, anxious, or on edge: 3 = Nearly every day Not being able to stop or control worryin = Several days Worrying too much about different things: 1 = Several days Trouble relaxin = More than half the days Being so restless that it is hard to sit still: 1 = Several days Becoming easily annoyed or irritable: 1 = Several days Feeling afraid as if something awful might happen: 1 = Several days Total NOMI-7 score (0-4 normal; 5-9 mild; 10-14 moderate; 15-21 severe): 10 Source: Developed by Drs. Martin Beard, Rolanda Olivier, Mickey Messina and colleagues, with an educational lasha from [employer]. Review of Systems Const Details: Const Denies chills, Denies fatigue, Denies fever(s), Denies headache(s) and Denies weakness ENT Denies dizziness and Denies headache(s) Card Denies chest pain, Denies lightheadedness, Denies dyspnea and Denies other (Palpitations) Resp Denies cough, Denies dyspnea, Denies wheezing and Denies other ( shortness of breath) GI Denies abdominal pain, Denies melena, Denies hematochezia, Denies change in bowel habits, Denies dyspepsia and Denies nausea Denies hematuria and Denies dysuria Musc Denies abnormal gait, Denies myalgias, Denies arthralgias, Denies numbness and Denies tingling Skin/Breast Denies rash, Denies unusual bruising and Denies wounds Neuro Denies abnormal gait, Denies dizziness, Denies headache(s), Denies memory loss, Denies numbness, Denies Sensory deficit (Neuro), Denies tingling and Denies weakness Psych Denies anxiety, Denies depression, Denies memory loss Endo Denies cold intolerance, Denies fatigue, Denies heat intolerance, Denies polydipsia and Denies polyuria Aller/Immun Denies wheezing Physical exam (Primary Care) Vital Signs: Last Vital Signs Temp 97.7 F 11/25/22 15:59 Pulse 77 11/25/22 15:59 Resp 12 11/25/22 15:59 BP 112/66 11/25/22 15:59 Pulse Ox 99 11/25/22 15:59 Oxygen Delivery Method Room Air 11/25/22 15:59 BMI result Body Mass Index 24.8 Tobacco/Smoking Status: Tobacco use Status Tobacco use date assessed 11/25/22 11/25/22 16:10 Patient Tobacco Use Status Never used Tobacco 11/25/22 16:10 e-Cigarette/Vaping Use Never Used 11/25/22 16:10 PHQ-9: PHQ-9 Score PHQ-9: Total score 10 11/25/22 16:10 Depression Screening Interpretation: Positive Depression Screening Follow-up: Existing condition and In treatment Thrive Assessment: Date of Thrive Assessment Date Thrive assessed 04/30/22 11/25/22 16:10 Const Other: General: no acute distress and well developed Nutritional Appearance: well nourished Orientation/consciousness: patient oriented x3 HENMT Head: Yes normocephalic and Yes atraumatic Eyes General: appearance normal, both eyes and all related structures Pupils: Equal, round and reactive pupils present EOM: EOMs intact bilaterally Resp Effort & Inspection: normal respiratory effort Auscultation: clear to auscultation bilaterally Cardio Rate: regular rate Rhythm: regular rhythm Heart sounds: S1 normal heart sound present, S2 normal heart sound present, no gallops, no murmurs and no rubs GI Palpation (GI): No Abdominal aortic bruit present, Soft to palpation, nontender, No hepatosplenomegaly present and No Rebound tenderness present Auscultation: normal bowel sounds General: Yes no CVA tenderness Back/Spine/Pelvis Back: no CVA tenderness Cervical Spine: cervical ROM normal and No Cervical spine tenderness Thoracic/Lumbar Spine: thoraco-lumbar ROM normal, No pain with thoraco-lumbar ROM, No thoracic spinal tenderness and No lumbar spinal tenderness Extrem General: Yes normal to inspection, No edema and No calf tenderness Skin General: warm and dry. Normal skin color. Normal skin turgor Lesions: no lesions Rashes: no rashes Trauma: no lacerations or abrasions Wounds: no wounds Nails: normal Neuro General: patient oriented x3, gait normal and no focal neuro deficit Cranial nerves: Yes Equal, round and reactive pupils present Cognition (Neuro): normal cognition Gait exam (Neuro): Normal gait present Sensory Exam: No Sensory deficit (Neuro) Psych Appearance: grossly normal Affect: normal affect Attitude: cooperative Thought process: Normal thought process present Assessment and Plan Assessment & Plan (1) MDD (major depressive disorder): Code(s): F32.9 - Major depressive disorder, single episode, unspecified Plan: PHQ-9 and NOMI-7 scores revealed moderate depression and anxiety Continue to take escitalopram and Adderall as prescribed Routine exercise encouraged Continue follow-up with therapist and psychiatrist as planned Verbalized understanding and agreed with treatment plan. She notes that she will establish with new PCP at different [facility] location. I nformed that she is due for a complete physical exam and routine labs next month, and to schedule inform new PCP once she has established. Verbalized understanding and agreed with the plan. (2) PTSD (post-traumatic stress disorder): Code(s): F43.10 - Post-traumatic stress disorder, unspecified Plan: As above (3) ADHD (attention deficit hyperactivity disorder), inattentive type: Code(s): F90.0 - Attention-deficit hyperactivity disorder, predominantly inattentive type Plan: As above (4) Constipation: Code(s): K59.00 - Constipation, unspecified Plan: Healthy dietary choices, including fruits and vegetables, and fiber encouraged Adequate hydration encouraged May take Metamucil as needed Follow-up with PCP with worsening or new symptoms Verbalized understanding and agreed with treatment plan. Coding Level of Care Code TCM Mod MDM <= 14 Days Diagnoses MDD (major depressive disorder) F32.9 PTSD (post-traumatic stress disorder) F43.10 ADHD (attention deficit hyperactivity disorder), inattentive type F90.0 Constipation K59.00
== END 2022-11-25 16:44 | disposition home or self-care (01) ==
PROVIDERS: PCP Nurse Practitioner Family; Visit Provider Nurse Practitioner Family
DX: F32.1 Major depressive disorder, single episode, moderate (principal); F43.10 Post-traumatic stress disorder, unspecified; F90.0 Attention-deficit hyperactivity disorder, predominantly inattentive type; K59.00 Constipation, unspecified
CPT/HCPCS: 96127; 99214

== ENCOUNTER 2023-06-15 08:12 | Outpatient (AMB) | payer OTHER, SELFPAY ==
--- NOTE | 2023-06-15 08:14 | MHC.PC.OV ---
Vital Signs 06/15/23 08:15 06/15/23 08:42 Height 5 ft 7 in Weight 152 lb 4 oz 163 lb 2 oz BMI 25.5 BP 102/70 Blood Pressure Location Rt brachial Position Sitting Respiration 12 Pulse 94 Pulse Source Pulse Oximeter Temp 99.4 F Temp Source Oral Pulse Oximetry (%) 98 Oxygen Delivery Method Room Air Intake Visit Reasons: bodyaches Intake Note: Body aches Mobile Designer Required: No Allergies No Known Allergies Allergy (Verified 06/15/23 08:40) Medication List - Last Reconciled 06/15/23 by Kathy Inman PA-C [Adderall XR 30 mg PO 1XD] cetirizine (Zyrtec) 10 mg PO DAILY escitalopram oxalate 20 mg PO DAILY 30 days fluticasone propionate 50 mcg/actuation (Flonase Allergy Relief) 1 spray intranasal BID ibuprofen 800 mg PO Q8H PRN 10 days Tobacco use date assessed: 06/15/23 Dental Screening Dental Screen Date: 11/25/22 HPI bodyaches HPI Details Patient is a 28-year-old female with a significant past medical history of sickle cell trait anemia, depression, PTSD, ADHD , seasonal allergies presenting today with complaints of feeling sick. She states that over the weekend she started to feel body aches and run down. At times she has felt feverish but no documented fever. She states that yesterday she started to feel worse and her throat started to become sore along with increased sinus congestion, intermittent right ear pain and increased body aches. She thought initially that this was just related to a sickle cell pain flare. She states that whenever she is about to get her. She gets body aches like this but this felt much worse. No known sick contacts. She has had an intermittent cough, decreased appetite but no nausea or vomiting. No urinary symptoms. No abdominal pain, diarrhea or constipation. No rashes. She has not tried anything for her symptoms. No known tick bites. No joint erythema or effusion. States that she has not been taking the Zyrtec because it was prescribed by her previous PCP and did not want to pay for this [id number]. She does think that her seasonal allergies are currently present on and off as sometimes her eyes and ears feel itchy. [facility] Medical History (Updated 06/15/23 @ 09:09 by Kathy Inman PA-C) Sickle cell trait syndrome No pertinent past medical history Surgical History H/O tooth extraction Family History (Updated 11/25/22 @ 16:07 by MINNIE Martinez) Other Mental health disorder Substance abuse Social History Household Members: None Housing: Apartment Do you presently have visiting nurse or other home services: No Alcohol intake: never Patient Tobacco Use Status: Never used Tobacco e-Cigarette/Vaping Use: Never Used Second Hand Smoke Exposure: No service: No Current occupational status: employed Current occupation: [employer] Sexual orientation: Don't Know Cognitive needs: No Hearing needs: No Vision needs: No Questionnaire Thrive Questionnaire Date Thrive assessed: 04/30/22 NOMI-7 AMB Questionnaire NOMI-7 Date NOMI - 7 assessed: 11/25/22 Source: Developed by Drs. Martin Beard, Rolanda Olivier, Mickey Messina and colleagues, with an educational lasha from [employer]. Review of Systems Const Reports as per HPI ENT Reports as per HPI Card Reports as per HPI Resp Reports as per HPI GI Reports as per HPI Reports as per HPI Musc Reports as per HPI Physical exam (Primary Care) Vital Signs: Last Vital Signs Temp 99.4 F 06/15/23 08:42 Pulse 94 06/15/23 08:42 Resp 12 06/15/23 08:42 BP 102/70 06/15/23 08:42 Pulse Ox 98 06/15/23 08:42 Oxygen Delivery Method Room Air 06/15/23 08:42 BMI result Body Mass Index 25.5 Tobacco/Smoking Status: Tobacco use Status Tobacco use date assessed 06/15/23 06/15/23 08:43 Patient Tobacco Use Status Never used Tobacco 06/15/23 08:23 e-Cigarette/Vaping Use Never Used 06/15/23 08:23 Thrive Assessment: Date of Thrive Assessment Date Thrive assessed 04/30/22 06/15/23 08:23 Const Orientation/consciousness: patient oriented x3 HENMT Ears: hearing grossly normal bilaterally and other (TMs dome-shaped with small air-fluid levels.) General nose exam: Abnormal mucous membranes and turbinates present boggy and Nasal discharge present clear Face and sinus: Yes sinus tenderness (Maxillary sinus tenderness present) Mouth: other (Mild erythema of the posterior oropharynx. No exudates) Eyes Conjunctivae: conjunctivae normal Sclerae: sclerae normal Pupils: Equal, round and reactive pupils present EOM: EOMs intact bilaterally Neck Neck: Yes full ROM Thyroid: Thyroid normal Lymphatic: lymphadenopathy (Anterior cervical lymphadenopathy noted) Resp Auscultation: clear to auscultation bilaterally Cardio Rate: regular rate Rhythm: regular rhythm Heart sounds: S1 normal heart sound present and S2 normal heart sound present GI Inspection: Yes normal to inspection Palpation (GI): Soft to palpation and Other GI palpation findings present (nontender, no cva tenderness) Auscultation: normoactive bowel sounds Skin General skin exam: no rashes or lesions noted Neuro General: patient oriented x3, gait normal and no focal motor deficits Cranial nerves: Yes Equal, round and reactive pupils present Extrem General: Yes full ROM Assessment and Plan Assessment & Plan (1) Upper respiratory tract infection: Code(s): J06.9 - Acute upper respiratory infection, unspecified Qualifiers: URI type: unspecified viral URI Qualified Code(s): J06.9 - Acute upper respiratory infection, unspecified Plan: Discussed that this is likely viral in etiology. We also discussed that she may have an overlying component of seasonal allergies with some of the congestion. I will start her on Flonase and Zyrtec. She used to be on Zyrtec but has not taken this since her PCP left the practice. We also discussed supportive measures including rest, hydration and OTC analgesics. Ibuprofen 800 mg was provided. Advised to follow up if no improvement or if anything worsens or changes. A work note was provided. COVID, flu and RSV test ordered. Rapid strep negative. Throat culture ordered. Patient understands and agrees with this plan. (2) Sickle cell trait syndrome: Code(s): D57.3 - Sickle-cell trait Plan: See above. (3) Seasonal allergies: Code(s): J30.2 - Other seasonal allergic rhinitis Plan: See above. Orders: Orders Throat Culture Today B34.9 - Viral infection, unspecified AMB Rapid Strep Screen Today Z13.9 - Encounter for screening, unspecified SARS-CoV2/FLU/RSV Today R09.89 - Other specified symptoms and signs involving the circulatory and respiratory systems Medications: New ibuprofen 800 mg PO Q8H 10 days PRN 30 tabs 1RF pain fluticasone propionate 50 mcg/actuation (Flonase Allergy Relief) administer into each nostril 1 spray intranasal BID 16 grams 0RF cetirizine (Zyrtec) 10 mg PO DAILY 90 tabs 3RF Coding Level of Care Code Est Pt Level 4 (41073) Diagnoses Viral upper respiratory tract infection J06.9 URI type: unspecified viral URI Sickle cell trait syndrome D57.3 Seasonal allergies J30.2
[2023-06-15 08:42] VITALS: BP 102/70; PULSE 94; RESP 12; TEMP 37.4; O2SAT 98; BMI 25.5
== END 2023-06-15 09:14 | disposition home or self-care (01) ==
PROVIDERS: PCP Nurse Practitioner Family; Visit Provider Physician Assistant
DX: J06.9 Acute upper respiratory infection, unspecified (principal); D57.3 Sickle-cell trait; J30.2 Other seasonal allergic rhinitis
CPT/HCPCS: 87880; 99214

== ENCOUNTER 2023-06-15 08:29 | Outpatient (REF) | payer OTHER, SELFPAY ==
[2023-06-15 12:37] LABS: Influenza A PCR NEGATIVE (Negative); Influenza B PCR NEGATIVE (Negative); Resp Syncy Virus RNA Qual PCR NEGATIVE (Negative); SARS COV2 PCR INHOUSE NEGATIVE (Negative)
== END 2023-06-15 08:30 | disposition home or self-care (01) ==
LOC: HO.LAB 08:29
PROVIDERS: Visit Provider Physician Assistant
DX: R09.89 Other specified symptoms and signs involving the circulatory and respiratory systems (principal); J06.9 Acute upper respiratory infection, unspecified
CPT/HCPCS: 0241U

== ENCOUNTER 2023-11-12 11:14 | Outpatient (AMB) | payer OTHER, SELFPAY ==
--- NOTE | 2023-11-12 11:29 | A.OFFPC_ITS ---
Vital Signs 11/12/23 11:31 Height 5 ft 7 in Weight 152 lb BMI 23.8 BP 102/60 Blood Pressure Location Rt brachial Position Sitting Respiration 12 Pulse 68 Pulse Source Pulse Oximeter Pulse Oximetry (%) 98 Oxygen Delivery Method Room Air Intake Visit Reasons: elvia from [facility] to [facility] Intake Note: Patient is here to transfer care from [facility] to [facility] [address] [facility]. Patient reports she saw OBGYN through [facility] and was seen, informed she is anemic and then was prescribed a medication but has not picked it up yet. Patient would like to talk about anemia with her provider. Patient also reports feeling very tired during menstruation and notices larger blood clots during menstruation. Patient reports she has muscle spasms during menstuation. Patient also reports left eye twitching. 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 She was noted to be anemic. She is having heavy menstrual periods with clotting. She has a history of sickle cell trait She was admitted at [facility] between 11/05/2022 and 11/11/2022 for major depression. She notes seek psychiatric elevation because she was unable to sleep despite taking melatonin. She feels stable currently She states that she is followed by a psychiatrist at [place] monthly and sees a therapist every other week. Her psychiatrist manages her psychotropic medications. She has history of ADHD, MDD, and PTSD. ROS see HPI PHYSICAL EXAM: GENERAL: Alert and oriented x 3. NAD EYES: EOMI. Anicteric. HENT: Moist mucous membranes. No scleral icterus. No cervical lymphadenopathy. LUNGS: Clear to auscultation bilaterally. CARDIOVASCULAR: Regular rate and rhythm. No murmur. No JVD. ABDOMEN: Soft, non-tender +bs EXTREMITIES: No edema. Non-tender. SKIN: No rashes or lesions. Warm. NEUROLOGIC: No focal neurological deficits. CN II-XII grossly intact PSYCHIATRIC: Cooperative. Appropriate mood and affect [facility] Medical History Sickle cell trait syndrome No pertinent past medical history Surgical History H/O tooth extraction Family History Other Mental health disorder Substance abuse Social History Household Members: None Housing: Apartment Do you presently have visiting nurse or other home services: No Alcohol intake: never Patient Tobacco Use Status: Never used Tobacco e-Cigarette/Vaping Use: Never Used Second Hand Smoke Exposure: No service: No Current occupational status: employed Current occupation: [employer] Sexual orientation: Don't Know Cognitive needs: No Hearing needs: No Vision needs: No Questionnaire PHQ-9 Over the last 2 weeks, how often have you been bothered by any of the following problems? 1. Little interest or pleasure in doing things: not at all 2. Feeling down, depressed, or hopeless: several days 3. Trouble falling or staying asleep, or sleeping too much: several days 4. Feeling tired or having little energy: nearly every day 5. Poor appetite or overeating: more than half the days 6. Feeling bad about yourself - or that you are a failure or have let yourself or your family down: not at all 7. Trouble concentrating on things, such as reading the newspaper or watching television: nearly every day 8. Moving or speaking so slowly that other people could have noticed. Or the opposite - being so fidgety or restless that you have been moving around a lot more than usual: more than half the days 9. Thoughts that you would be better off or of hurting yourself in some way: not at all Total score: 12 Depression Screening Interpretation: Positive Depression Screening Follow-up: In treatment Depression Screening Done: Yes 32987 - PHQ-9 Billing: Yes Source: Developed by Drs. Martin Beard, Rolanda Olivier, Mickey Messina and colleagues, with an educational lasha from [employer]. Thrive Questionnaire Date Thrive assessed: 11/12/23 I am a: Patient What is your living situation today?: I have a steady place to live Within the past 12 months, did the food you bought not last and you didn't have the money to get more?: Never true Within the past 12 months, did you worry whether your food would run out before you got money to buy more?: Never true Do you have trouble paying for medicines?: No Do you have trouble getting transportation to medical appointments?: No Do you have trouble paying your heating and electricity bill?: Yes Do you have trouble taking care of your child, family member or friend?: No Do you have trouble with day-to-day activities such as bathing, preparing meals, shopping, managing finances, etc.?: No Are you currently unemployed and looking for a job?: No Are you interested in more education?: Yes Please select the resources that you would like help with: Utilities Currently or been in a relationship where the following occur: No concerns re ported THRIVE Score: 1 AUDIT C Alcohol Use Questionnaire (AUDIT-C) 1. How often do you have a drink containing alcohol?: 2-4 times a month 2. How many drinks containing alcohol do you have on a typical day when you are drinking?: 1 or 2 3. How often do you have six or more drinks on one occasion?: Never Total Score: 2 NOMI-7 AMB Questionnaire NOMI-7 Date NOMI - 7 assessed: 11/12/23 Feeling nervous, anxious, or on edge: 3 = Nearly every day Not being able to stop or control worryin = More than half the days Worrying too much about different things: 2 = More than half the days Trouble relaxin = More than half the days Being so restless that it is hard to sit still: 3 = Nearly every day Becoming easily annoyed or irritable: 2 = More than half the days Feeling afraid as if something awful might happen: 1 = Several days Total NOMI-7 score (0-4 normal; 5-9 mild; 10-14 moderate; 15-21 severe): 15 Source: Developed by Drs. Mratin Beard, Rolanda Olivier, Mickey Messina and colleagues, with an educational lasha from [employer]. NOMI-7 Assessment Billing NOMI-7 Assessment Tool: NOMI-7 Assessment 76927 Physical exam (Primary Care) Vital Signs: Last Vital Signs Pulse 68 11/12/23 11:31 Resp 12 11/12/23 11:31 BP 102/60 11/12/23 11:31 Pulse Ox 98 11/12/23 11:31 Oxygen Delivery Method Room Air 11/12/23 11:31 BMI result Body Mass Index 23.8 Tobacco/Smoking Status: Tobacco use Status Tobacco use date assessed 11/12/23 11/12/23 11:42 Patient Tobacco Use Status Never used Tobacco 11/12/23 11:31 e-Cigarette/Vaping Use Never Used 11/12/23 11:31 PHQ-9: PHQ-9 Score PHQ-9: Total score 12 11/12/23 12:14 Depression Screening Interpretation: Positive Depression Screening Follow-up: In treatment Thrive Assessment: Date of Thrive Assessment Date Thrive assessed 11/12/23 11/12/23 11:31 Currently or been in a relationship where the following occur: No concerns reported Assessment and Plan Assessment & Plan (1) Blood clotting disorder: Code(s): D68.9 - Coagulation defect, unspecified Plan: refer to network contractor for change in menses. Labs ordered (2) Sickle cell trait syndrome: Code(s): D57.3 - Sickle-cell trait Plan: Labs ordered. Discussed often limited role for iron replacement in sickle cell trait/anemia (3) MDD (major depressive disorder): Code(s): F32.9 - Major depressive disorder, single episode, unspecified Qualifiers: Major depression recurrence: recurrent Active/Remission status: in partial remission Qualified Code(s): F33.41 - Major depressive disorder, recurrent, in partial remission Plan: continue f/up therapy. stable on current medications Orders: Orders Complete Blood Count Auto Diff 11/12/23 D57.3 - Sickle-cell trait, E78.00 - Pure hypercholesterolemia, unspecified, F32.9 - Major depressive disorder, single episode, unspecified, Z13.228 - Encounter for screening for other metabolic disorders Vitamin B12 and Folate 11/12/23 D57.3 - Sickle-cell trait, E78.00 - Pure hypercholesterolemia, unspecified, F32.9 - Major depressive disorder, single episode, unspecified, Z13.228 - Encounter for screening for other metabolic disorders TSH reflex Free T4 11/12/23 D57.3 - Sickle-cell trait, E78.00 - Pure hypercholesterolemia, unspecified, F32.9 - Major depressive disorder, single episode, unspecified, Z13.228 - Encounter for screening for other metabolic disorders Lipid Panel 11/12/23 D57.3 - Sickle-cell trait, E78.00 - Pure hypercholesterolemia, unspecified, F32.9 - Major depressive disorder, single episode, unspecified, Z13.228 - Encounter for screening for other metabolic disorders Comprehensive Met. Panel 11/12/23 D57.3 - Sickle-cell trait, E78.00 - Pure hypercholesterolemia, unspecified, F32.9 - Major depressive disorder, single episode, unspecified, Z13.228 - Encounter for screening for other metabolic disorders Prothrombin Time INR 11/12/23 D68.9 - Coagulation defect, unspecified IRON PROFILE 11/12/23 D57.3 - Sickle-cell trait, E78.00 - Pure hypercholesterolemia, unspecified, F32.9 - Major depressive disorder, single episode, unspecified, Z13.228 - Encounter for screening for other metabolic disorders Ferritin 11/12/23 D57.3 - Sickle-cell trait, E78.00 - Pure hypercholesterolemia, unspecified, F32.9 - Major depressive disorder, single episode, unspecified, Z13.228 - Encounter for screening for other metabolic disorders Hemoglobin A1c 11/12/23 E78.00 - Pure hypercholesterolemia, unspecified, Z13.228 - Encounter for screening for other metabolic disorders Partial Thromboplastin Time 11/12/23 D68.9 - Coagulation defect, unspecified Coding Level of Care Code Est Pt Level 4 (58947) Complex EM visit Add On G2211 Diagnoses Blood clotting disorder D68.9 Sickle cell trait syndrome D57.3 Recurrent major depressive disorder, in partial remission F33.41 Major depression recurrence: recurrent Active/Remission status: in partial remission Additional Codes NOMI-7 Assessment Billing - NOMI-7 Assessment Tool: NOMI-7 Assessment [id number] ([id number])
[2023-11-12 11:31] VITALS: BP 102/60; PULSE 68; RESP 12; O2SAT 98; BMI 23.8
== END 2023-11-12 12:26 | disposition home or self-care (01) ==
PROVIDERS: PCP Nurse Practitioner Family; Visit Provider Internal Medicine
DX: D68.9 Coagulation defect, unspecified (principal); D57.3 Sickle-cell trait; F33.41 Major depressive disorder, recurrent, in partial remission

== ENCOUNTER → 2023-11-12 11:14 | Outpatient (BNVA) | payer OTHER, SELFPAY | PROVIDERS: PCP Nurse Practitioner Family; Visit Provider Internal Medicine | DX: D68.9 Coagulation defect, unspecified (principal); D57.3 Sickle-cell trait; F33.41 Major depressive disorder, recurrent, in partial remission | CPT/HCPCS: 96127 ==

== ENCOUNTER 2023-11-12 12:43 | Outpatient (REF) | payer OTHER, SELFPAY ==
[2023-11-12 14:20] LABS: MANUAL DIFF FLAG NO
[2023-11-12 14:26] LABS: Basophils Absolute Auto 0.1 X10*3/uL (0.0-0.2); Basophils Percent Auto 1.1 % (0-2); Eosinophils Absolute Auto 0.2 X10*3/uL (0.0-0.4); Eosinophils Percent Auto 2.8 % (0-4); Hemoglobin 10.7 g/dl (12.0-16.0); Imm Gran Abs Auto 0.01 X10*3/uL (0.00-0.03); Imm Gran Pct Auto 0.2 % (0.0-0.4); Lymphocytes Absolute Auto 1.9 X10*3/uL (1.2-4.9); Lymphocytes Percent Auto 34.4 % (20-40); Mean Corpuscular HGB Conc 31.5 g/dl (31.0-35.0); Mean Corpuscular Hemoglobin 31.1 pg (27.0-33.0); Mean Corpuscular Volume 98.8 fL (80.0-98.0); Mean Platelet Volume 11.3 fL (9.4-12.3); Monocytes Absolute Auto 0.5 X10*3/uL (0.1-1.2); Monocytes Percent Auto 8.6 % (2-11); Neutrophils Absolute Auto 2.9 x10*3/uL (2.0-8.3); Neutrophils Percent Auto 52.9 % (45-73); Platelet Count 339 X10*3/uL (160-400); Red Blood Count 3.44 X10*6/uL (4.20-5.50); Red Cell Distribution Width 13.6 % (11.0-16.0); White Blood Count 5.4 X10*3/uL (4.8-10.8)
[2023-11-12 14:31] LABS: Estimated Average Glucose 117 mg/dL; Hemoglobin A1c % 5.7 % (<6.0)
[2023-11-12 14:32] LABS: INTERNATIONAL NORM RATIO 1.1 (0.9-1.1); Prothrombin Time 12.4 SEC (10.9-12.4)
[2023-11-12 14:34] LABS: Partial Thromboplastin Time 30.1 SEC (26.0-36.8)
[2023-11-12 15:04] LABS: Alanine Aminotransferase 10 U/L (0-31); Albumin Level 4.2 g/dL (3.5-5.0); Alkaline Phosphatase 51 U/L (39-117); Anion Gap 9 (12-20); Aspartate Amino Transferase 16 U/L (5-31); Bilirubin Total 0.2 mg/dL (0.0-1.0); Blood Urea Nitrogen 7 mg/dL (9-16); Calcium 9.8 mg/dL (8.4-10.2); Carbon Dioxide 28 mmol/L (22-29); Chloride 106 mmol/L (96-108); Cholesterol 222 mg/dL (<200); Estimated Glomerular Filt Rate > 60; Ferritin 23 ng/mL (10-122); Glucose Random 100 mg/dL (60-115); HDL Cholesterol 66 mg/dL (>40); Iron 30 mcg/dL (30-160); LDL Cholesterol Calculated 147 mg/dL (<100); Percent Iron Saturation 9 % (15-50); Potassium 4.2 mmol/L (3.3-5.1); Sodium 139 mmol/L (135-145); Total Iron Binding Capacity 332 mcg/dL (228-428); Total Protein 7.9 g/dL (6.5-8.0); Triglycerides 47 mg/dL (<150); Unsaturated Iron Binding 302 ug/dL
[2023-11-12 15:17] LABS: Folate 10.3 ng/mL (> or = 4.0); Vitamin B12 941 pg/mL (200-900)
== END 2023-11-12 12:44 | disposition home or self-care (01) ==
LOC: HO.WFDLDS 12:43
PROVIDERS: Visit Provider Internal Medicine
DX: D57.3 Sickle-cell trait (principal); F32.9 Major depressive disorder, single episode, unspecified; E78.00 Pure hypercholesterolemia, unspecified; D68.9 Coagulation defect, unspecified; Z13.228 Encounter for screening for other metabolic disorders
CPT/HCPCS: 36415; 80053; 80061; 82607; 82728; 82746; 83036; 83540; 84443; 85025; 85610; 85730

== ENCOUNTER 2023-11-26 11:00 | Outpatient (AMB) | payer OTHER, SELFPAY ==
--- NOTE | 2023-11-26 11:11 | MHC.PC.OV ---
Vital Signs 11/26/23 11:16 Height 5 ft 7 in Weight 152 lb 2 oz BMI 23.8 BP 98/60 Blood Pressure Location Lt brachial Position Sitting Pulse 75 Pulse Source Pulse Oximeter Pulse Oximetry (%) 100 Oxygen Delivery Method Room Air Intake Visit Reasons: follow up labs tele or in person Intake Note: Follow up lab results. Allergies No Known Allergies Allergy (Verified 11/26/23 11:11) Tobacco use date assessed: 11/12/23 Dental Screening Dental Screen Date: 11/12/23 HPI HPI Comments History of Present Illness Details 27-year-old female with a past medical history of sickle cell trait, anemia, MDD, PTSD, ADHD presenting for follow up Anemia: She has sickle cell trait. She was recently seen by her pipeliner at [place]. She was noted to be anemic. She is having heavy menstrual periods with clotting. Her labs here last month with Hgb 10.7 and iron of 30. Discussed holding off iron therapy and discussing with og/project coordinator rn possible treating the heavy periods BH: She was admitted at [facility] between 11/05/2022 and 11/11/2022 for major depression. She notes seek psychiatric elevation because she was unable to sleep despite taking melatonin. She feels stable currentlyShe states that she is followed by a psychiatrist at [place] monthly and sees a therapist every other week. Her psychiatrist manages her psychotropic medications. She has history of ADHD, MDD, and PTSD. ROS see HPI PHYSICAL EXAM: GENERAL: Alert and oriented x 3. NAD EYES: EOMI. Anicteric. HENT: Moist mucous membranes. No scleral icterus. No cervical lymphadenopathy. LUNGS: Clear to auscultation bilaterally. CARDIOVASCULAR: Regular rate and rhythm. No murmur. No JVD. ABDOMEN: Soft, non-tender +bs EXTREMITIES: No edema. Non-tender. SKIN: No rashes or lesions. Warm. NEUROLOGIC: No focal neurological deficits. CN II-XII grossly intact PSYCHIATRIC: Inappropriate giggling at times [facility] Medical History Sickle cell trait syndrome No pertinent past medical history Surgical History H/O tooth extraction Family History Other Mental health disorder Substance abuse Social History Household Members: None Housing: Apartment Do you presently have visiting nurse or other home services: No Alcohol intake: never Patient Tobacco Use Status: Never used Tobacco e-Cigarette/Vaping Use: Never Used Second Hand Smoke Exposure: No service: No Current occupational status: employed Current occupation: [employer] Sexual orientation: Don't Know Cognitive needs: No Hearing needs: No Vision needs: No Questionnaire Thrive Questionnaire Date Thrive assessed: 11/12/23 I am a: Patient What is your living situation today?: I have a steady place to live Within the past 12 months, did the food you bought not last and you didn't have the money to get more?: Never true Within the past 12 months, did you worry whether your food would run out before you got money to buy more?: Never true Do you have trouble paying for medicines?: No Do you have trouble getting transportation to medical appointments?: No Do you have trouble paying your heating and electricity bill?: Yes Do you have trouble taking care of your child, family member or friend?: No Do you have trouble with day-to-day activities such as bathing, preparing meals, shopping, managing finances, etc.?: No Are you currently unemployed and looking for a job?: No Are you interested in more education?: Yes Please select the resources that you would like help with: Utilities Currently or been in a relationship where the following occur: No concerns reported THRIVE Score: 1 NOMI-7 AMB Questionnaire NOMI-7 Date NOMI - 7 assessed: 11/12/23 Source: Developed by Drs. Martin Beard, Rolanda Olivier, Mickey Messina and colleagues, with an educational lasha from [employer]. Physical exam (Primary Care) Vital Signs: Last Vital Signs Pulse 75 11/26/23 11:16 BP 98/60 11/26/23 11:16 Pulse Ox 100 11/26/23 11:16 Oxygen Delivery Method Room Air 11/26/23 11:16 BMI result Body Mass Index 23.8 Tobacco/Smoking Status: Tobacco use Status Tobacco use date assessed 11/12/23 11/26/23 11:11 Patient Tobacco Use Status Never used Tobacco 11/26/23 11:11 e-Cigarette/Vaping Use Never Used 11/26/23 11:11 Thrive Assessment: Date of Thrive Assessment Date Thrive assessed 11/12/23 11/26/23 11:11 Currently or been in a relationship where the following occur: No concerns reported Coding Level of Care Code Est Pt Level 3 (96055) Diagnoses Anemia D64.9 Anemia type: other cause Assessment & Plan Assessment & Plan (1) Anemia: Code(s): D64.9 - Anemia, unspecified Category: Medical Qualifiers: Anemia type: other cause Plan: multifactorial-sickle cell trait, heavy menses pipeliner referral pending Plan Acnea-topical clindamycin ordered Medications: New clindamycin phosphate 1% 1 appl topical DAILY 75 mL 3RF
[2023-11-26 11:16] VITALS: BP 98/60; PULSE 75; O2SAT 100; BMI 23.8
== END 2023-11-26 11:49 | disposition home or self-care (01) ==
PROVIDERS: PCP Internal Medicine; Visit Provider Internal Medicine
DX: D64.9 Anemia, unspecified (principal)

== ENCOUNTER → 2023-11-26 11:00 | Outpatient (BNVA) | payer OTHER, SELFPAY | PROVIDERS: PCP Internal Medicine; Visit Provider Internal Medicine ==

== ENCOUNTER 2024-05-01 08:35 | Outpatient (REF) | payer OTHER, SELFPAY ==
[2024-05-01 13:54] LABS: Influenza A PCR NEGATIVE (Negative); Influenza B PCR POSITIVE (Negative); Resp Syncy Virus RNA Qual PCR NEGATIVE (Negative); SARS COV2 PCR INHOUSE NEGATIVE (Negative)
--- OUTSIDE RECORDS SUMMARY | 2024-05-01 14:02 | XMS_ITS | Encounter Summary ---
Author Organization [facility] Address [address] [place] [address] Care Team Providers Care Ruby On Rails Software Developer Name Role Phone Shahida Moss Primary Care Provider [phone] Encounter Details Date Type Department Care Team (Latest Contact Info) Description 02/27/2020 Lab Requisition [facility] COVID [address] Through [address] [place] [address] [address] [place] [address] Mariano Noyola PA-C [address] [place] [address] Encounter for laboratory testing for COVID-19 virus Social History Tobacco Use Types Packs/Day Years Used Date Smoking Tobacco: Never Assessed Sex and Gender Information Value Date Recorded Sex Assigned at Not on file Gender Identity Not on file Sexual Orientation Not on file COVID-19 Exposure Response Date Recorded In the last month, have you been in contact with someone who was confirmed or suspected to have Coronavirus / COVID-19? No / Unsure 02/18/2020 12:09 PM EST documented as of this encounter Plan of Treatment Not on file documented as of this encounter Procedures Procedure Name Priority Date/Time Associated Diagnosis Comments COVID-19 (SARS-COV-2) - SEMA4 LAB Routine 02/27/2020 11:33 AM EST Encounter for laboratory testing for COVID-19 virus [ICD-10-CM] documented in this encounter Results * COVID-19 (SARS-COV-2) (SEMA4) (02/27/2020 11:33 AM EST) COVID-19 RT-PCR NOT-DETECT ED Not-Detec ernestina 02/28/2020 7:58 PM EST [facility] Comment:Interpretation: The viral RNA was not detected, making the COVID-19 diagnosis less likely. Clinical correlation is highly recommended.Final report signed by Lu Roman, Ph.D., [facility], Laboratory DirectorTests performed at [facility] Microbiology Nasopharyngeal swab / Unknown 02/27/2020 11:33 AM EST 02/27/2020 11:33 AM EST Narrative [facility] - 02/28/2020 7:58 PM EST Performed by [facility] [address] [place] [address], CLIA# [id number] and [place] License# [id number] Mariano Noyola PA-C MICROBIOLOGY - NERAL ORDERABLES [facility] documented in this encounter Visit Diagnoses Diagnosis Encounter for laboratory testing for COVID-19 virus documented in this encounter Care Teams Ruby On Rails Software Developer Relationship Specialty Start Date End Date Shahida Moss [address] [place] [address] PCP - General 02/18/20 documented as of this encounter
--- OUTSIDE RECORDS SUMMARY | 2024-05-01 14:02 | XMS_ITS | Encounter Summary ---
Author Organization [facility] Address [address] [place] [address] Care Team Providers Care Cotton Jammer Name Role Phone Shahida Moss Primary Care Provider [phone] Encounter Details Date Type Department Care Team (Latest Contact Info) Description 03/28/2020 Lab Requisition [facility] COVID Drive Through [address] [place] [address] [address] [place] [address] Satya Henry MD [address] [place] [address] Encounter for laboratory testing for COVID-19 virus [...] or suspected to have Coronavirus / COVID-19? Yes 03/28/2020 12:47 PM EST documented as of this encounter Plan of Treatment Not on file documented as of this encounter Procedures Procedure Name Priority Date/Time Associated Diagnosis Comments COVID-19 (SARS-COV-2) - SEMA4 LAB Routine 03/28/2020 12:49 PM EST Encounter for laboratory testing for COVID-19 virus [ICD-10-CM] documented in this encounter Results * COVID-19 (SARS-COV-2) (SEMA4) (03/28/2020 12:49 PM EST) COVID-19 RT-PCR NOT-DETEC PORTER Not-Detec porter 03/29/2020 6:06 PM EST [facility] Comment:Interpretation: The viral RNA was not detected, making the COVID-19 diagnosis less likely. Clinical correlation is highly recommended.Final report signed by Isra Lopez, Ph.D., Laboratory DirectorTests performed at [facility] Microbiology Nasopharyngeal swab / Unknown 03/28/2020 12:49 PM EST 03/28/2020 12:49 PM EST Narrative [facility] - 03/29/2020 6:06 PM EST Performed by [facility] [address] [place] [address], CLIA# [id number] and [place] License# [id number] Satya Henry MD MICROBIOLOGY - GENER AL ORDERABLES [facility] documented in this encounter Visit Diagnoses Diagnosis Encounter for laboratory testing for COVID-19 virus documented in this encounter Care Teams Cotton Jammer Relationship Specialty Start Date End Date Shahida Moss [address] [place] [address] PCP - General 02/18/20 documented as of this encounter
--- OUTSIDE RECORDS SUMMARY | 2024-05-01 14:02 | XMS_ITS | Clinical Summary ---
Author Organization [facility] Address [address] [place] [address] Care Team Providers Care Change Booth Attendant Name Role Phone Pcp, No MD Primary Care Provider Unavailabl e Allergies No known active allergies Medications cetirizine (ZyrTEC) 10 mg tablet Take 10 mg by mouth daily. Active hydrOXYzine (ATARAX) 10 mg tabletIndicatio ns:Generalized anxiety disorder,Panic attacks Take 1 tablet (10 mg total) by mouth 3 (three) times a day as needed for anxiety for up to 10 days. 30 tablet 10/17/2019 Active escitalopram (LEXAPRO) 20 mg tabletIndicatio ns:Generalized anxiety disorder Take 1 tablet (20 mg total) by mouth in the morning. 30 tablet 3 08/07/2021 Active Active Problems Problem Noted Date Diagnosed Date Megaloblastic anemia 01/23/2020 Hypercholesteremia 10/31/2019 Overview (10/31/2019): lipid panel sep 2019: total cholesterol > 200 and LDL of 161. Recommend lifestyle modification Seasonal allergies 10/17/2019 Generalized anxiety disorder 03/29/2018 Assessment & Plan (01/23/2020 2:53 PM EST): NOMI-7 score has stabilized around 11 points. Although she has good improvement on Lexapro, she continues to have panic attacks and sleep has been an issue. After discussing with the patient, she prefers to use a single agent to address her anxiety and sleep. Hence, we will switch her medication to Prozac 20 mg. Since both Lexapro and Prozac are SSRIs, there is no need to taper Lexapro. -Start Prozac at 20 mg daily -Encourage patient to set up care with a therapist to help with cognitive behavioral therapy -Follow-up in the clinic in 2 weeks to evaluate how she is tolerating the new medication -After switching to Prozac, we will attempt to titrate up the medication dose to 40 mg. Despite this if she has trouble with sleep, can add on trazodone to be used as needed before falling asleep Assessment & Plan (10/17/2019 3:09 PM EDT): NOMI somewhat controlled but panic attacks are bothering the pt. Since pt is non compliant with lexapro it is difficult to assess if her anxiety is due to med failure - counseled pt to keep several phone reminders to take lexapro. Otherwise, she could associate taking the med with eating chocolates or food that she likes - continue lexapro 20mg - continue psychotherapy - check TSH. CBC - F/U in 3 months for NOMI and panic attacks Assessment & Plan (08/02/2018 12:55 PM EDT): - maintain lexapro at stable dose of 20mg daily - follow up in 6 months to perform another NOMI scale. If worse will consider increasing. However given she has good response, will maintain this stable dose. Assessment & Plan (06/21/2018 5:41 PM EDT): NOMI - 7 is high compared to previous visits partly falsely high 2/2 recent events. Overall her mental status has improved - increase lexapro to 20mg daily - return in 4 weeks for further assessment - continue to follow up with psychotherapist at [facility] - call 911 or 211 if the pt has any thoughts of hurting herself Assessment & Plan (05/10/2018 4:28 PM EDT): Her mood has been somewhat better until yday when she was feeling more anxious. She ran out of her meds a week ago and did not know how to refill. No significant side effects of lexapro. Denies suicidal ideations. - increase Lexapro to 10mg daily - F/U in 6 weeks for further dose escalation Assessment & Plan (03/29/2018 5:09 PM EST): No PMHx of psychiatric disorder. NOMI-7 15points. - start 5mg of escitalopram- LEXAPRO - counseled it would take around 4 weeks to see any benefit - side effects are sexual dysfunction, QTc prolongation - counseled about compliance Healthcare maintenance 12/21/2017 Assessment & Plan (10/17/2019 3:11 PM EDT): - Screening BMI - counseled regarding low carb high protein diet. Goal weight 130lbs DM - check a1c HTN - normal Lipids - check lipid panel HIV - checking HCV - checking Cervical cancer - last pap smear in 2017 - negative. She is due for one but she is not prepared today. She wishes to get it done during her next appt - Immunizations - uptodate; next flu shot needed - counseled yearly dental and eye doctor follow up - Labs - RPR, syphilis, gonorrhea, chlamydia screen, BMP, vit D Assessment & Plan (12/21/2017 5:18 PM EDT): - flu vaccine, third dose of her HPV vaccine series - encouraged diet, exercise - expressed interest to get back on control pills with an Delivery Truck Driver referral later. Resolved Problems Problem Noted Date Diagnosed Date Resolved Date Anemia 10/17/2019 11/21/2019 Assessment & Plan (10/17/2019 3:12 PM EDT): previous CBC shows low Hb and elevated MCV. Pt not an alcoholic nor does she take meds affecting Hb - repeat CBC with ferritin, b12 and folate to evaluate further Immunizations Name Administration Dates Next Due Hpv Vaccine 9-valent 12/21/2017,07/13/2016,05/11 Influenza, Quadrivalent 12/21/2017,01/27/2016 Meningococcal Polysaccharide MPSV4 10/14/2015 Tdap 10/14/2015 Family History Medical History Relation Comments Sickle cell trait Brother Sickle cell anemia Cousin Sickle cell d isease No Known Problems Father Throat cancer Maternal Grandmother No Known Problems Mother Relation Status Comments Brother Alive Cousin Father Other pt is adopted so does not know about her family hx Maternal Grandmother Mother Alive pt is adopted so does not know about her family hx Social History Tobacco Use Types Packs/Day Years Used Date Smoking Tobacco: Never Smokeless Tobacco: Never Alcohol Use Standard Drinks/Week Comments Yes 0 (1 standard drink = 0.6 oz pur e alcohol) socially AUDIT-C Answer Date Recorded Q1: How often do you have a drink containing alc ohol? 2-4 times a month 10/17/2019 Q2: How many drinks containi ng alcohol do you have on a typical day when you are drinking? 1 or 2 10/17/2019 Q3: How often do you have si x or more drinks on one occasion? Never 10/17/2019 Education Answer Date Recorded What is the highest level of school you have completed or the highest degree you have received? 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 Not on file Not on file Not on file Last Filed Vital Signs Vital Sign Reading Time Taken Comments Blood Pressure 108/59 10/17/2019 2:01 PM EDT Pulse 65 10/17/2019 2:01 PM EDT Temperature 36.5 ??C (97.7 ??F) 10/17/2019 2:01 PM ED T Respiratory Rate - - Oxygen Saturation 97% 10/17/2019 2:01 PM EDT Inhaled Oxygen Concentration - - Weight 70.4 kg (155 lb 1.6 oz) 10/17/2019 2:01 P M EDT Height 170.2 cm (5' 7 ) 10/17/2019 2:01 PM EDT Body Mass Index 24.29 10/17/2019 2:01 PM EDT Plan of Treatment Health Maintenance Due Date Last Done Comments Hepatitis B Vaccines (1 of 3 - 19+ 3-dose series) 2013 Pap Smear 2015 COVID-19 Vaccine ( - 2023-2 5 season) 2023 Influenza Vaccine (#1) 2023 8, 01/27/2016 Cervical Cancer Screening 02/04/2024 HPV/Cotest 02/04/2024 DTaP,Tdap,and Td Vaccines (2 - Td or Tdap) 10/13/2025 10/14/2015 Zoster Vaccines (1 of 2) 02/04/2044 Meningococcal Vaccine Aged Out 10/14/2015 No bell ryan eligible based on patient's age to complete this topic HPV Vaccines Completed 12/21/2017, 07/13/2016, 05/11/2016 HIV Screening Completed 10/17/2019 Hepatitis A Vaccines Aged Out No long er eligible based on patient's age to complete this topic MMR Vaccines Aged Out No longer eligi ble based on patient's age to complete this topic Pneumococcal Vaccine: Pediatrics (0 to 5 Years) and At-Risk Patients (6 to 64 Years) Aged Out No longer eligible b ased on patient's age to complete this topic Procedures Procedure Name Priority Date/Time Associated Diagnosis Comments HIV COMBO ANTIGEN/ANTIBODY Routine 10/17/2019 3:09 PM EDT Annual physical exam Screening examination for STD (sexually transmitted disease) from Last 3 Months or Most Recently Relevant to Health Maintenance Results * HIV combo antigen/antibody (10/17/2019 3:09 PM EDT) HIV Combo AB/AG Negative Negative 10/17/2019 5:51 PM EDT [facility] Blood specimen (specimen) Venous blood specimen / Unknown Venipuncture / Unknown 10/17/2019 3:09 PM EDT 10/17/2019 3:13 PM EDT Narrative [facility] - 10/17/2019 5:51 PM EDT This test is a 4th generation HIV Antigen-Antibody Combination assay, using a chemiluminescent microparticle immunoassay, for the simultaneous qualitative detection of human immuno- deficiency virus (HIV) p24 antigen and antibodies to HIV type 1 (HIV-1) and/or HIV type 2 (HIV-2) in human serum or plasma. The [employer] HIV Ag/Ab Combo assay is intended to be used as an aid in the diagnosis of HIV-1 and/or HIV-2 infection, including acute or primary HIV-1 infection. Initially-positive tests are repeated in duplicate. Repeat-positive tests will be confirmed for HIV by a HIV-1/HIV-2 rapid supplemental/ differentiation antibody assay. This testing algorithm is in line with the current CDC recommendations. us Juli James MD LAB BLOOD ORDERABLES NO STAT Final Result [facility] [address] [place] [address], [place] [phone] from Last 3 Months or Most Recently Relevant to Health Maintenance Insurance MEDICAID [facility] D [facility] - OUT OF STATE Care Teams Change Booth Attendant Relationship Specialty Start Date End Date Yesica Gordon MD [address] [place] [address] PCP - General 11/11/23
--- OUTSIDE RECORDS SUMMARY | 2024-05-01 14:02 | XMS_ITS | Encounter Summary ---
Author Organization [facility] Address [address] [place] [id number] Care Team Providers Care Seo Executive Name Role Phone Shahida Moss Primary Care Provider [phone] Encounter Details Date Type Department Care Team (Latest Contact Info) Description 02/18/2020 Lab Requisition [facility] COVID [address] Through [address] [place] [address] [address] [place] [address] Mariano Noyola PA-C [address] [place] [id number] Encounter for laboratory testing for COVID-19 virus [...] Comments COVID-19 (SARS-COV-2) - SEMA4 LAB Routine 02/18/2020 1:14 PM EST Encounter for laboratory testing for COVID-19 virus [ICD-10-CM] documented in this encounter Results * COVID-19 (SARS-COV-2) (SEMA4) (02/18/2020 1:14 PM EST) COVID-19 RT-PCR NOT-DETEC PORTER Not-Detec porter 02/19/2020 11:49 PM EST [facility]fa MORGAN Comment:Interpretation: The viral RNA was not detected, making the COVID-19 diagnosis less likely. Clinical correlation is highly recommended.Final report signed by Ana Esparza, Ph.D., Laboratory DirectorTests performed at [facility] Nasopharyngeal swab / Unknown 02/18/2020 1:14 PM EST 02/18/2020 1:14 PM EST Narrative [facility] - 02/19/2020 11:49 PM EST Performed by [facility] [address] [place] [id number], CLIA# [id number] and [place] License# [id number] Mariano Noyola PA-C MICROBIOLOGY - NERAL ORDERABLES NOE MORGAN documented in this encounter Visit Diagnoses Diagnosis Encounter for laboratory testing for COVID-19 virus documented in this encounter Care Teams Seo Executive Relationship Specialty Start Date End Date Shahida Moss [address] [place] [address] PCP - General 02/18/20 documented as of this encounter
--- OUTSIDE RECORDS SUMMARY | 2024-05-01 14:02 | XMS_ITS | Clinical Summary ---
Author Organization [facility] Address [address] [place] [id number] Care Team Providers Care Information Systems Security Officer Name Role Phone Shahida Moss Primary Care Provider [phone] Social History Tobacco Use Types Packs/Day Years Used Date Smoking Tobacco: Never Assessed Sex and Gender Information Value Date Recorded Sex Assigned at Not on file Gender Identity Not on file Sexual Orientation Not on file Plan of Treatment Health Maintenance Due Date Last Done Comments Hepatitis C Virus Screening 1994 HIV Screening 2007 DTaP/Tdap/Td Vaccines (1 - Tdap) 2013 Hepatitis B Vaccines (1 of 3 - 19+ 3-dose series) 2013 Pap Smear (Ages 21-65) 2015 Influenza Vaccine 09/23/2023 COVID-19 Vaccine ( - 2023-2 5 season) 2023 HPV Vaccines Aged Out No longer eligi ble based on patient's age to complete this topic Pneumococcal Vaccine: Pediat maddison (0-5 Years) and At-Risk Patients (6 to 49 Years) Aged Out No longer eligible b ased on patient's age to complete this topic Care Teams Information Systems Security Officer Relationship Specialty Start Date End Date Shahida Moss [address] [place] [address] PCP - General 02/18/20
--- OUTSIDE RECORDS SUMMARY | 2024-05-01 14:02 | XMS_ITS | Continuity of Care Document ---
Author Organization [facility] vices Address [address] [place] [address] Phone Care Team Providers Care Coagulating Bath Operator Name Role Phone Katlyn Gayle MD Unavailable Unavailable Allergies, Adverse Reactions, Alerts Substance Reaction Status Criticality No Known Allergies Active No Inform ation Procedures Procedure Date Prophylaxis-Adult Oral Hygiene Instructions Bitewings-Four Films Intraoral-Periapical Each Additional Isidro m Intraoral-Periapical Each Additional Isidro m Treatment Plan Not Started Resin-Based Composite-One Surface, Poste rior Treatment Plan In Process Time [facility] Informed Consent Periodic Oral Evaluation-Established Pat ient Treatment Plan In Process Prophylaxis-Adult Oral Hygiene Instructions Bitewings-Four Films Periodic Oral Evaluation-Established Pat ient Treatment Plan In Process Prophylaxis-Adult Oral Hygiene Instructions Bitewings-Four Films Intraoral-Periapical First Film 017 Intraoral-Periapical Each Additional Isidro m [place]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 Oral Evaluation-Problem Focused [facility] Plan [facility] Oral Evaluation-Problem Focused Treatment Plan In Process Time [facility] CROWN; ADDIT'L VISIT Treatment Plan In Process Time [facility] CROWN; ADDIT'L VISIT Treatment Plan In Process Time [facility] Prefabricated Post And Core In Addition To [place] Treatment Plan In Process Time [facility] Prophylaxis-Adult Oral Hygiene Instructions Bitewings-Four Films Intraoral-Periapical [...] Poste rior Treatment Plan In Process Time [facility] Resin-Based Composite-Three Surfaces, Po sterior Treatment Plan In Process Time [facility] Resin-Based Composite-Two Surfaces, Post erior Treatment Plan In Process Time [facility] Intraoral-Periapical First Film 014 Limited Oral Evaluation-Problem Focused Treatment Plan In Process Time [facility] Sedative Filling Resin-Based Composite-One Surface, Poste rior Treatment Plan [facility] Sedative Filling Treatment Plan In Process Time [facility] Periodic Oral Evaluation-Established Pat ient Treatment Plan In Process Prophylaxis-Child Bitewings-Four Films Intraoral-Periapical First Film 014 Intraoral-Periapical Each Additional Isidro m topical application of fluoride 014 No Charge Resin-Based Composite-Two Surfaces, Post erior Treatment Plan In Process Time [facility] Advance Directives Directive Yes / No Effective Date File Name No Information Encounters Encounter Description Practice Location Reason(s) For Visit Diagnoses Date Provider Providers Copied on Encounter [facility], [address] [place] [address], [address], tel:[phone] [facility] Pediatrics No Information 1 Irwin Potts. [address] [facility], [id number] [place], [address], [place]. tel:[phone] [facility], [address] [place] [address], [address], [place] tel:[phone] [facility] Dental Encounter for dental exam and cleaning w/o abnormal findings 0 Soy Loco. [address] [facility], [id number] [place], [id number], [place]. tel:[phone] [facility], [address] [place] [address], [address], [place] tel:[phone] [facility] Dental Dental caries, unspecified 9 Bimal Ruiz. [address] [facility], [id number] [place], [place], [id number], [place]. tel:[phone] [facility], [address] [place] [address], [address], [place] tel:[phone] [facility] Dental Encounter for screening for dental disorders 5-201 9 Bimal Ruiz. [address], [id number] [place], [id number], [place]. tel:[phone] [facility], [place], [address], [place] tel:[phone] [facility] Dental Encounter for dental exam and cleaning w/o abnormal findings 9 Ahmet Moralez. [address], [id number] [place], [id number], [place]. tel:[phone] [facility], [address] [place] [address], [address], [place] tel:[phone] [facility] Dental Encounter for screening for dental disorders 0 7 Bimal Ruiz. Clara Li, [id number] [place], [id number], [place]. tel:[phone] [facility], [facility] [place], [address], [place] tel:[phone] [facility] Dental Encounter for dental exam and cleaning w/o abnormal findings 7 Soy Loco. [address], [id number] [place], [id number], [place]. tel:[phone] [facility], [facility] [place], [address], [place] tel:[phone] [facility] Dental Encounter for dental exam and cleaning w/o abnormal findings 6 Bimal Riuz. Clara Li, [id number] [place], [id number], [place]. tel:[phone] Referring Provider: Joseph Wallis, Clara Li [id number] [address] [place] [address], [address] . tel:[phone] [facility], [place], [address], [place] tel:[phone] [facility] Dental Encounter for dental exam and cleaning w/o abnormal findings 6 Bimal Ruiz. [address], [id number] [place], [id number], [place]. tel:[phone] Referring Provider: Joseph Wallis, Clara Li [id number], [place], [address] . tel:[phone] [facility], [address], [place], [address], [place] tel:[phone] [facility] Dental Encounter for dental exam and cleaning w/o abnormal findings Jul- 0- 6 Bimal Whitakerer. [address], [id number] [place], [id number], [place]. tel:[phone] Referring Provider: Joseph Wallis, Clara Li [id number] [place], [address] . tel:[phone] [facility], [address] [place], [address], [place] tel: [phone] [facility] Dental Encounter for dental exam and cleaning w/o abnormal findings Jul-0 7 6 Bimal Ruiz. [address], [id number] [place], [id number], [place]. tel:[phone] Referring Provider: Joseph Wallis, Clara Li [id number] [place], [address] . tel:[phone] [facility], [address], [place], [address], [place] tel:[phone] [facility] Dental Encounter for dental exam and cleaning w/o abnormal findings 6- 6 Bimal Ruiz. [address], [id number] [place], [id number], [place]. tel:[phone] [facility], [address] [place], [address], [place] tel:[phone] [facility] Dental Encounter for dental exam and cleaning w/o abnormal findings Apr-2 3- 6 Bimal Ruiz. [address], [id number] [place], [id number], [place]. tel:[phone] [facility], [address], [place], [address], [place] tel:[phone] [facility] Dental Encounter for dental exam and cleaning w/o abnormal findings Apr- 5- 6 Soy Loco. [address], [id number] [place], [id number], [place]. tel:[phone] [facility], [address] [place], [address], [place] tel:[phone] [facility] Dental Dental examination Sep-0 5 Bimal Ruiz. [address], [id number] [place], [id number], [place]. tel:[phone] Referring Provider: Joseph Wallis, [address] [id number], [place], [address] . tel:[phone] [facility], [address], [place], [address], [place] tel:[phone] [facility] Dental Dental examination Sep- 5 Soy Loco. [address], [id number] [place], [id number], [place]. tel:[phone] Referring Provider: Claudy Olivier, [address] [id number], [place], [address] . tel:[phone] [facility], [address] [place], [address], [place] tel:[phone] [facility] Dental Dental examination Dec- 4 No Information [facility], [address] [place], [address], [place] tel:[phone] [facility] Dental Dental examination Nov- 4 No Information [facility], [address] [place], [address], [place] tel:[phone] [facility] Dental Dental examination 4 No Information [facility], [address], [place], [address], [place] tel: [phone] [facility] Dental Dental examination 4 No Information [facility], [address], [place], [address], [place] tel: [phone] [facility] Dental Dental examination Sep-0 4 Bimal Ruiz. Clara Li, [id number] [place], [id number], [place]. tel:[phone] Referring Provider: Joseph Wallis, Clara Li [id number] [place], [address] . tel:[phone] [facility], [address], [place], [address], [place] tel: [phone] [facility] Dental Dental examination 4 Bimal Ruiz. Clara Li, [id number] [place], [id number], [place]. tel:[phone] Referring Provider: Joseph Wallis, Clara Li [id number] 00, [place], [address] . tel:[phone] [facility], [address] Li, [place], [address], [place] tel: [phone] [facility] Dental Dental examination 4 Bimal Ruiz. Clara Li, [id number] [place], [id number], [place]. tel:[phone] Referring Provider: Joseph Wallis, Clara Li [id number] [place], [address] . tel:[phone] [facility], [address], [place], [address], [place] tel: [phone] [facility] Dental Dental examination 4 Bimal Ruiz. Clara Li, [id number] [place], [id number], [place]. tel:[phone] [facility], [place], [address], tel:[phone] [facility] Dental Dental examination 4 Bimal Ruiz. Clara Li, [id number] [place], [id number], [place]. tel:[phone] Referring Provider: Joseph Wallis, Clara Li [id number] [address] [place] [address], [address] . tel:[phone] [facility], [place], [address], tel:[phone] [facility] Dental Dental examination 4 Soy Loco. Clara Li, [id number] [place], [id number], [place]. tel:[phone] Referring Provider: Claudy Olivier, [address] [id number] [address], [address] . tel:[phone] [facility], [place], [address], [place] tel:[phone] [facility] Dental No Information 3 No Information [facility], [place], [address], [place] tel:[phone] [facility] Dental Dental examination 3 Bimal Ruiz. Clara Li, [id number] [place], [id number], [place]. tel:[phone] Referring Provider: Joseph Wallis, Clara Li [id number] [address], [address] . tel:[phone] Family History Family Member Type Diagnosis Age At Onset No Information Payers Payer name Insurance type Covered alliance party ID Maylin zaldivar(s) D Medicaid [id number] Social History Type Description Quantity Date Captured [...]
== END 2024-05-01 08:36 | disposition home or self-care (01) ==
LOC: HO.LNP 08:35
PROVIDERS: Visit Provider Internal Medicine
DX: J02.9 Acute pharyngitis, unspecified (principal); D57.3 Sickle-cell trait; F32.A Depression, unspecified; F43.10 Post-traumatic stress disorder, unspecified; F90.9 Attention-deficit hyperactivity disorder, unspecified type
CPT/HCPCS: 0241U; 87880

== ENCOUNTER 2024-05-01 08:39 | Outpatient (AMB) | payer OTHER, SELFPAY ==
--- NOTE | 2024-05-01 08:52 | A.OFFPC_ITS ---
Vital Signs 05/01/24 09:03 Height 5 ft 7 in Weight 155 lb BMI 24.3 BP 104/74 Blood Pressure Location Lt brachial Position Sitting Respiration 12 Pulse 95 Pulse Source Pulse Oximeter Temp 99.6 F Temp Source Oral Pulse Oximetry (%) 98 Oxygen Delivery Method Room Air Intake Visit Reasons: Weakness /throat irritation Intake Note: Throat pain, fever, night sweats, fatigue, body pains. Sxs started Wednesday. Was diagnosed with POTs at [facility]. Unsure if some symptoms are related to that. Shelter Case Manager Required: No Allergies No Known Allergies Allergy (Verified 11/26/23 11:11) Tobacco use date assessed: 11/12/23 Dental Screening Dental Screen Date: 11/12/23 HPI HPI Comments History of Present Illness Details 27-year-old female with a past medical h istory of sickle cell trait, anemia, MDD, PTSD, ADHD presenting for follow up Anemia: She has sickle cell trait. She was recently seen by her airport maintenance chief at [place]. She was noted to be anemic. She is having heavy menstrual periods with clotting. Her labs here last month with Hgb 10.7 and iron of 30. Discussed holding off iron therapy and discussing with og/obstetrician gynecologist possible treating the heavy periods BH: She was admitted at [facility] between 11/05/2022 and 11/11/2022 for major depr ession. She notes seek psychiatric elevation because she was unable to sleep despite taking melatonin. She feels stable currentlyShe states that she is followed by a psychiatrist at [place] monthly and sees a therapist every other week. Her psychiatrist manages her psychotropic medications. She has history of ADHD, MDD, and PTSD. ROS see HPI PHYSICAL EXAM: GENERAL: Alert and oriented x 3. NAD EYES: EOMI. Anicteric. HENT: Moist mucous membranes. No scleral icterus. No cervical lymphadenopathy. LUNGS: Clear to auscultation bilaterally. CARDIOVASCULAR: Regular rate and rhythm. No murmur. No JVD. ABDOMEN: Soft, non-tender +bs EXTREMITIES: No edema. Non-tender. SKIN: No rashes or lesions. Warm. NEUROLOGIC: No focal neurological deficits. CN II-XII grossly intact PSYCHIATRIC: Inappropriate giggling at times [facility] Medical History Sickle cell trait syndrome No pertinent past medical history Surgical History H/O tooth extraction Family History Other Mental health disorder Substance abuse Social History (Updated 05/01/24 @ 09:06 by Katey Díaz CMA) Household Members: None Housing: Apartment Do you presently have visiting nurse or other home services: No Alcohol intake: never Patient Tobacco Use Status: Never used Tobacco e-Cigarette/Vaping Use: Never Used Second Hand Smoke Exposure: No Use of substances other than those prescribed or required for medical reasons: No service: No Current occupational status: employed Current occupation: [employer] Sexual orientation: Don't Know Cognitive needs: No Hearing needs: No Vision needs: No Questionnaire Thrive Questionnaire Date Thrive assessed: 11/12/23 NOMI-7 AMB Questionnaire NOMI-7 Date NOMI - 7 assessed: 11/12/23 Source: Developed by Drs. Martin Beard, Rolanda Olivier, Mickey Messina and colleagues, with an educational lasha from [employer]. Physical exam (Primary Care) Vital Signs: Last Vital Signs Temp 99.6 F 05/01/24 09:03 Pulse 95 05/01/24 09:03 Resp 12 05/01/24 09:03 BP 104/74 05/01/24 09:03 Pulse Ox 98 05/01/24 09:03 Oxygen Delivery Method Room Air 05/01/24 09:03 BMI result Body Mass Index 24.3 Tobacco/Smoking Status: Tobacco use Status Tobacco use date assessed 11/12/23 05/01/24 08:53 Patient Tobacco Use Status Never used Tobacco 05/01/24 09:06 e-Cigarette/Vaping Use Never Used 05/01/24 09:06 Thrive Assessment: Date of Thrive Assessment Date Thrive assessed 11/12/23 05/01/24 08:53 Results AMB Rapid Strep AMB Rapid Strep Negative Last Edit by Katey Díaz CMA on 05/01/24 09:4 8 Coding Assessment & Plan Assessment & Plan Orders: Orders SARS-CoV2/FLU/RSV Today J02.9 - Acute pharyngitis, unspecified Medications: New azithromycin For 250 mg dose pack: take 500 mg today (day 1), then 250 mg for 4 days (days 2-5) PO 6 tabs 0RF prednisone 40 mg (2 x 20 mg) PO DAILY 3 days 6 tabs 0RF
--- OUTSIDE RECORDS SUMMARY | 2024-05-01 08:58 | XMS_ITS | Continuity of Care Document ---
Author Organization [facility] vices Address [address] [place] [address] Phone Care Team Providers Care Asphalt Heater Tender Name Role Phone Katlyn Gayle MD Unavailable Unavailable Allergies, Adverse Reactions, Alerts Substance Reaction Status Criticality No Known Allergies Active No Inform ation Procedures Procedure Date Prophylaxis-Adult Oral Hygiene Instructions Bitewings-Four Films Intraoral-Periapical Each Additional Isidro m Intraoral-Periapical Each Additional Isidor m Treatment Plan Not Started Resin-Based Composite-One Surface, Poste rior Treatment Plan In Process Time [facility] Informed Consent Periodic Oral Evaluation-Established Pat ient Treatment Plan In Process Prophylaxis-Adult Oral Hygiene Instructions Bitewings-Four Films Periodic Oral Evaluation-Established Pat ient Treatment Plan In Process Prophylaxis-Adult Oral Hygiene Instructions Bitewings-Four Films Intraoral-Periapical First Film 017 Intraoral-Periapical Each Additional Isidro m [place]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 [facility] Oral Evaluation-Problem Focused Treatment Plan [facility] Oral Evaluation-Problem Focused Treatment Plan In Process Time [facility] CROWN; ADDIT'L VISIT Treatment Plan In Process Time [facility] [place]; ADDIT'L VISIT Treatment Plan In Process Time [facility] Prefabricated Post And Core In Addition To [place] Treatment Plan In Process Time [facility] Prophylaxis-Adult Oral Hygiene Instructions Bitewings-Four Films Intraoral-Periapical First Film 016 Intraoral-Periapical Each Additional Isidro m Periodic Oral Evaluation-Established Pat ient Treatment Plan In Process Prophylaxis-Adult Oral Hygiene Instructions Bitewings-Four Films Intraoral-Periapical First Film 2 015 Intraoral-Periapical Each Additional Isidro m Resin-Based Composite-One Surface, Poste rior Resin-Based Composite-One Surface, Poste rior Treatment Plans Complete Resin-Based Composite-One Surface, Poste rior Treatment Plan In Process Resin-Based Composite-One Surface, Poste rior Resin-Based Composite-One Surface, Poste rior Treatment Plan In Process Time [facility] Resin-Based Composite-Three Surfaces, Po sterior Treatment Plan In Process Time [facility] Resin-Based Composite-Two Surfaces, Post erior Treatment Plan In Process Time [facility] Intraoral-Periapical First Film 014 Limited Oral Evaluation-Problem Focused Treatment Plan In Process Time [facility] Sedative Filling Resin-Based Composite-One Surface, Poste rior Treatment Plan In Process [facility] Sedative Filling Treatment Plan In Process Time [facility] Periodic Oral Evaluation-Established Pat ient Treatment Plan In Process Prophylaxis-Child Bitewings-Four Films Intraoral-Periapical First Film 014 Intraoral-Periapical Each Additional Isidro m topical application of fluoride 014 No Charge Resin-Based Composite-Two Surfaces, Post erior Treatment Plan In Process Time [facility] Advance Directives Directive Yes / No Effective Date File Name No Information Encounters Encounter Description Practice Location Reason(s) For Visit Diagnoses Date Provider Providers Copied on Encounter [facility], [address] [place] [address], [address], tel:[phone] [facility] Pediatrics No Information 1 Irwin Potts. [address] [facility], [id number] [place], [address], [place]. tel:[phone] [facility], [address] [place] [address], [address], [place] tel:[phone] [facility] Dental Encounter for dental exam and cleaning w/o abnormal findings 0 Soy Loco. [address] [facility], [id number] [place], [place], [id number], [place]. tel:[phone] [facility], [address] [place] [address], [address], [place] tel:[phone] [facility] Dental Dental caries, unspecified 9 Bimal Ruiz. [address] [facility], [id number] [place], [id number], [place]. tel:[phone] [facility], [address] [place] [address], [address], [place] tel:[phone] [facility] Dental Encounter for screening for dental disorders 5-201 9 Bimal Ruiz. Clara Li, [id number] [place], [id number], [place]. tel:[phone] [facility], [place], [address], [place] tel:[phone] [facility] Dental Encounter for dental exam and cleaning w/o abnormal findings 9 Ahmet Moralez. [address], [id number] [place], [id number], [place]. tel:[phone] [facility], [address] [place] [address], [address], [place] tel:[phone] [facility] Dental Encounter for screening for dental disorders 0 7 Bimal Ruiz. Clara Li, [id number] [place], [id number], [place]. tel:[phone] [facility], [facility] [place], [address], [place] tel:[phone] [facility] Dental Encounter for dental exam and cleaning w/o abnormal findings 7 Soy Loco. [address], [id number] [place], [id number], [place]. tel:[phone] [facility], [facility], [address], [place] tel:[phone] [facility] Dental Encounter for dental exam and cleaning w/o abnormal findings 6 Bimal Ruiz. Clara Li, [id number] [place], [id number], [place]. tel:[phone] Referring Provider: Joseph Wallis, Clara Li [id number] [address] [place] [address], [address] . tel:[phone] [facility], [place], [address], [place] tel:[phone] [facility] Dental Encounter for dental exam and cleaning w/o abnormal findings 6 Bimal Ruiz. [address], [id number] [place], [id number], [place]. tel:[phone] Referring Provider: Joseph Wallis, Clara Li [id number] 00, [place], [address] . tel:[phone] [facility], [address], [place], [address], [place] tel:[phone] [facility] Dental Encounter for dental exam and cleaning w/o abnormal findings Jul- 0- 6 Bimal Whitakerer. [address], [id number] [place], [place], [id number], [place]. tel:[phone] Referring Provider: Joseph Wallis, Clara Li [id number] [place], [address] . tel:[phone] [facility], [address] [place], [address], [place] tel: [phone] [facility] Dental Encounter for dental exam and cleaning w/o abnormal findings Jul-0 7 6 Bimal Ruiz. [address], [id number] [place], [id number], [place]. tel:[phone] Referring Provider: Joseph Wallis, Clara Li [id number] [place], [address] . tel:[phone] [facility], [address], [place], [address], [place] tel:[phone] [facility] Dental Encounter for dental exam and cleaning w/o abnormal findings 6- 6 Bimal Ruiz. [address], [id number] [place], [id number], [place]. tel:[phone] [facility], [address] [place], [address], [place] tel:[phone] [facility] Dental Encounter for dental exam and cleaning w/o abnormal findings Apr-2 3- 6 Bimal Ruiz. [address], [id number] [place], [id number], [place]. tel:[phone] [facility], [address], [place], [address], [place] tel:[phone] [facility] Dental Encounter for dental exam and cleaning w/o abnormal findings Apr- 5- 6 Soy Loco. [address], [id number] [place], [id number], [place]. tel:[phone] [facility], [address] [place], [address], [place] tel:[phone] [facility] Dental Dental examination Sep-0 5 Bimal Ruiz. [address], [id number] [place], [id number], [place]. tel:[phone] Referring Provider: Joseph Wallis, [address] [id number] 00, [place], [address] . tel:[phone] [facility], [address], [place], [address], [place] tel:[phone] [facility] Dental Dental examination Sep- 5 Soy Loco. [address], [id number] [place], [id number], [place]. tel:[phone] Referring Provider: Claudy Olivier, [address] [id number] 00, [place], [address] . tel:[phone] [facility], [address] [place], [address], [place] tel:[phone] [facility] Dental Dental examination Dec- 4 No Information [facility], [address] [place], [address], [place] tel:[phone] [facility] Dental Dental examination Nov- 4 No Information [facility], [address] [place], [address], [place] tel:[phone] [facility] Dental Dental examination 4 No Information [facility], [address], [place], [address], [place] tel: [phone] [facility] Dental Dental examination 4 No Information [facility], [address], [place], [address], [place] tel: [phone] [facility] Dental Dental examination Sep-0 4 Bimal Ruiz. Clara Li, [id number] [place], [id number], [place]. tel:[phone] Referring Provider: Joseph Wallis, Clara Li [id number] [place], [address] . tel:[phone] [facility], [address], [place], [address], [place] tel: [phone] [facility] Dental Dental examination 4 Bimal Ruiz. Clara Li, [id number] [place], [id number], [place]. tel:[phone] Referring Provider: Joseph Wallis, Clara Li [id number] 00, [place], [address] . tel:[phone] [facility], Clara Li, [place], [address], [place] tel: [phone] [facility] Dental Dental examination 4 Bimal Ruiz. Clara Li, [id number] [place], [id number], [place]. tel:[phone] Referring Provider: Joseph Wallis, Clara Li [id number] [place], [address] . tel:[phone] [facility], [address], [place], [address], [place] tel: [phone] [facility] Dental Dental examination 4 Bimal Ruiz. Clara Li, [id number] [place], [id number], [place]. tel:[phone] [facility], [place], [address], tel:[phone] [facility] Dental Dental examination 4 Bimal Ruiz. Clara Li, [id number] [place], [id number], [place]. tel:[phone] Referring Provider: Joseph Wallis, Clara Li [id number] [address] [place] [address], [address] . tel:[phone] [facility], [place], [address], tel:[phone] [facility] Dental Dental examination 4 Soy Loco. Clara Li, [id number] [place], [id number], [place]. tel:[phone] Referring Provider: Claudy Olivier, Clara Li [id number] [place], [address] . tel:[phone] [facility], [place], [address], [place] tel:[phone] [facility] Dental No Information 3 No Information [facility], [place], [address], [place] tel:[phone] [facility] Dental Dental examination 3 Bimal Ruiz. Clara Li, [id number] [place], [id number], [place]. tel:[phone] Referring Provider: Joseph Wallis, Clara Li [id number] [place], [address] . tel:[phone] Family History Family Member Type Diagnosis Age At Onset No Information Payers Payer name Insurance type Covered democrat ID Maylin zaldivar(s) D Medicaid [id number] Social History Type Description Quantity Date Captured Comments Alcohol Use Details Unknown Caffeine Use Details Unknown Tobacco Use Status No Information Smoking Status No Information Sex Female Sexual Orientation Straight or heterosexual Mar Gender Identity Female Chief Complaint And Reason For Visit No Information Reason For Referral Reason For Referral No Information History Of Present Illness Encounter Date Complaint History Of Prese nt Illness No Information Functional Status Date Functional Assessmen t No Information Instructions Date Instruction Additional Infor mation No Information Assessments Type Assessment Date No Information Patient Care Teams Name Effective Dates (start - stop) Status Members No Information
[2024-05-01 09:03] VITALS: BP 104/74; PULSE 95; RESP 12; TEMP 37.6; O2SAT 98; BMI 24.3
== END 2024-05-01 09:49 | disposition home or self-care (01) ==
PROVIDERS: PCP Internal Medicine; Visit Provider Internal Medicine
DX: J02.9 Acute pharyngitis, unspecified (principal)

== ENCOUNTER 2024-05-03 08:04 | Outpatient (AMB) | payer OTHER, SELFPAY ==
--- OUTSIDE RECORDS SUMMARY | 2024-05-03 08:09 | XMS_ITS | Encounter Summary ---
Author Organization [facility] Address [address] [place] [address] Care Team Providers Care Journeyman Pipefitter Name Role Phone Shahida Moss Primary Care Provider [phone] Encounter Details Date Type Department Care Team (Latest Contact Info) Description 03/28/2020 Lab Requisition [facility] COVID [facility] [address] [place] [address] [address] [place] [address] Satya Henry MD [address] [place] [address] Encounter for laboratory testing for COVID-19 virus [...] Isra Lopez, Ph.D., Laboratory DirectorTests performed at [facility] Nasopharyngeal swab / Unknown 03/28/2020 12:49 PM EST 03/28/2020 12:49 PM EST Narrative NOE MORGAN - 03/29/2020 6:06 PM EST Performed by [facility] [address] [place] [address], CLIA# [id number] and [place] License# [id number] Satya Henry MD MICROBIOLOGY - GENER AL ORDERABLES NOE MORGAN documented in this encounter Visit Diagnoses Diagnosis Encounter for laboratory testing for COVID-19 virus documented in this encounter Care Teams Journeyman Pipefitter Relationship Specialty Start Date End Date Shahida Moss [address] [place] [address] PCP - General 02/18/20 documented as of this encounter
--- OUTSIDE RECORDS SUMMARY | 2024-05-03 08:09 | XMS_ITS | Continuity of Care Document ---
Author Organization [facility] Address [address] [place] [address] Phone Care Team Providers Care Manufacturing Team Leader Name Role Phone Katlyn Gayle MD Unavailable Unavailable Allergies, Adverse Reactions, Alerts Substance Reaction Status Criticality No Known Allergies Active No Inform ation Procedures Procedure Date Prophylaxis-Adult Oral Hygiene Instructions Bitewings-Four Films Intraoral-Periapical Each Additional Isidro m Intraoral-Periapical Each Additional Isidro m Treatment Plan Not Started Resin-Based Composite-One Surface, Poste rior Treatment Plan In Process Time [facility] Informed Consent Periodic Oral Evaluation-Established Pat ient Treatment Plan In Process Prophylaxis-Adult Oral Hygiene Instructions Bitewings-Four Films Periodic Oral Evaluation-Established Pat ient Treatment Plan In Process Prophylaxis-Adult Oral Hygiene Instructions Bitewings-Four Films Intraoral-Periapical First Film 017 Intraoral-Periapical Each Additional Isidro m 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 Oral Evaluation-Problem Focused [facility] Oral Evaluation-Problem Focused Treatment Plan In Process Time [facility] CROWN; ADDIT'L VISIT Treatment Plan In Process Time [facility] CROWN; ADDIT'L VISIT Treatment Plan In Process Time [facility] Prefabricated Post And Core In Addition To Tumalo Treatment Plan In Process Time [facility] Prophylaxis-Adult Oral Hygiene Instructions Bitewings-Four [...] Poste rior Treatment Plan In Process Time [facility] Resin-Based Composite-Three Surfaces, Po sterior Treatment Plan In Process Time [facility] Resin-Based Composite-Two Surfaces, Post erior Treatment Plan In Process Time [facility] Intraoral-Periapical First Film 014 Limited Oral Evaluation-Problem Focused Treatment Plan In Process Time [facility] Sedative Filling Resin-Based Composite-One Surface, Poste rior Treatment Plan [facility] Sedative Filling Treatment Plan In Process Time [facility] Periodic Oral Evaluation-Established Pat ient Treatment Plan In Process Prophylaxis-Child Bitewings-Four Films Intraoral-Periapical First Film 014 Intraoral-Periapical Each Additional Isidro m topical application of fluoride 014 No Charge Resin-Based Composite-Two Surfaces, Post erior Treatment Plan In Process Time [facility] Advance Directives Directive Yes / No Effective Date File Name No Information Encounters Encounter Description Practice Location Reason(s) For Visit Diagnoses Date Provider Providers Copied on Encounter [facility], [address] [place] [address], [address], tel:[phone] [facility] Pediatrics No Information 1 Irwin Potts. [address] [facility], [id number] [place], [address], [place]. tel:[phone] [facility], [address] [place] [address], [address], [place] tel:[phone] [facility] Dental Encounter for dental exam and cleaning w/o abnormal findings 0 Soy Loco. [address] [facility], [id number] [place], [id number], [place]. tel:[phone] [facility], [address] [place] [address], [address], [place] tel:[phone] [facility] Dental Dental caries, unspecified 9 Bimal Ruiz. [address] [facility], [id number] [place], [id number], [place]. tel:[phone] [facility], [address] [place] [address], [address], [place] tel:[phone] [facility] Dental Encounter for screening for dental disorders 5-201 9 Bimal Riuz. [address], [id number] [place], [id number], [place]. tel:[phone] [facility], [place], [address], [place] tel:[phone] [facility] Dental Encounter for dental exam and cleaning w/o abnormal findings 9 Ahmet Moralez. [address], [id number] [place], [id number], [place]. tel:[phone] [facility], [address] [place] [address], [address], [place] tel:[phone] [facility] Dental Encounter for screening for dental disorders 0 7 Bimal Ruiz. Clara Li, [id number] [place], [id number], [place]. tel:[phone] [facility], [facility] [place], [address], [place] tel:[phone] [facility] Dental Encounter for dental exam and cleaning w/o abnormal findings 7 Soy Loco. [address], [id number] [place], [id number], [place]. tel:[phone] [facility], [facility] [place], [address], [place] tel:[phone] [facility] Dental Encounter for dental exam and cleaning w/o abnormal findings 6 Bimal Ruiz. Clara Li, [id number] [place], [id number], [place]. tel:[phone] Referring Provider: Joseph Wallis, [place] Li [id number] [address] [place] [address], [address] . tel:[phone] [facility], [place], [address], [place] tel:[phone] [facility] Dental Encounter for dental exam and cleaning w/o abnormal findings 6 Bimal Ruiz. [address], [id number] [place], [id number], [place]. tel:[phone] Referring Provider: Joseph Wallis, Clara Li [id number] 00, [place], [address] . tel:[phone] [facility], [address], [place], [address], [place] tel:[phone] [facility] Dental Encounter for dental exam and cleaning w/o abnormal findings Jul- 0- 6 Bimal Whitakerer. [address], [id number] [place], [id number], [place]. tel:[phone] Referring Provider: Joseph Wallis, Clara Li [id number] [place], [address] . tel:[phone] [facility], [address] [place], [address], [place] tel: [phone] [facility] Dental Encounter for dental exam and cleaning w/o abnormal findings Jul-0 7 6 Bimal Ruiz. [address], [id number] [place], [id number], [place]. tel:[phone] Referring Provider: Joseph Wallis, Clara Li [id number] [place], [address] . tel:[phone] [facility], [address], [place], [address], [place] tel:[phone] [facility] Dental Encounter for dental exam and cleaning w/o abnormal findings 6- 6 Bimal Ruiz. [address], [id number] [place], [id number], [place]. tel:[phone] [facility], [address] [place], [address], [place] tel:[phone] [facility] Dental Encounter for dental exam and cleaning w/o abnormal findings Apr-2 3- 6 Bimal Ruiz. [address], [id number] [place], [id number], [place]. tel:[phone] Counts Include [facility], [address], [place], [address], [place] tel:[phone] [facility] Dental Encounter for dental exam and cleaning w/o abnormal findings Apr- 5- 6 Soy Loco. [address], [id number] [place], [id number], [place]. tel:[phone] [facility], [address] [place], [address], [place] tel:[phone] [facility] Dental Dental examination Sep-0 5 Bimal Ruiz. [address], [id number] [place], [id number], [place]. tel:[phone] Referring Provider: Joseph Wallis, [address] [id number] 00, [place], [address] . tel:[phone] [facility], [address], [place], [address], [place] tel:[phone] [facility] Dental Dental examination Sep- 5 Soy Loco. [address], [id number] [place], [id number], [place]. tel:[phone] Referring Provider: Claudy Olivier, [address] [id number] 00, [place], [address] . tel:[phone] [facility], [address] [place], [address], [place] tel:[phone] [facility] Dental Dental examination Dec- 4 No Information [facility], [address] [place], [address], [place] tel:[phone] [facility] Dental Dental examination Nov- 4 No Information [facility], [address] [place], [address], [place] tel:[phone] [facility] Dental Dental examination 4 No Information Counts Include [facility], [address], [place], [address], [place] tel: [phone] [facility] Dental Dental examination 4 No Information [facility], [address], [place], [address], [place] tel: [phone] [facility] Dental Dental examination Sep-0 4 Bimal Ruiz. [address] Li, [id number] [place], [id number], [place]. tel:[phone] Referring Provider: Joseph Wallis, [address] Li [id number] [place], [address] . tel:[phone] [facility], [address], [place], [address], [place] tel: [phone] [facility] Dental Dental examination 4 Bimal Ruiz. Clara Li, [id number] [place], [id number], [place]. tel:[phone] Referring Provider: Joseph Wallis, Clara Li [id number] 00, [place], [address] . tel:[phone] [facility], [address], [place], [address], [place] tel: [phone] [facility] Dental Dental examination 4 Bimal Ruiz. [address] Li, [id number] [place], [id number], [place]. tel:[phone] Referring Provider: Joseph Wallis, Clara Li [id number] [place], [place], [address] . tel:[phone] [facility], [address], [place], [address], [place] tel: [phone] [facility] Dental Dental examination 4 Bimal Ruiz. Clara Li, [id number] [place], [id number], [place]. tel:[phone] [facility], [place], [address], tel:[phone] [facility] Dental Dental examination 4 Bimal Ruiz. Clara Li, [id number] [place], [id number], [place]. tel:[phone] Referring Provider: Joseph Wallis, Clara Li [id number] [address] [place] [address], [address] . tel:[phone] [facility], [place], [address], tel:[phone] [facility] Dental Dental examination 4 Soy Loco. Clara Li, [id number] [place], [id number], [place]. tel:[phone] Referring Provider: Claudy Olivier, [address] [id number] [place], [place], [address] . tel:[phone] [facility], [place], [address], [place] tel:[phone] [facility] Dental No Information 3 No Information [facility], [place], [address], [place] tel:[phone] [facility] Dental Dental examination 3 Bimal Ruiz. Clara Li, [id number] [place], [id number], [place]. tel:[phone] Referring Provider: Joseph Wallis, [address] Li [id number] [place], [address] . tel:[phone] Family History Family Member Type Diagnosis Age At Onset No Information Payers Payer name Insurance type Covered libertarian ID Maylin zaldivar(s) D Medicaid [id number] Social History Type Description Quantity Date Captured [...]
--- OUTSIDE RECORDS SUMMARY | 2024-05-03 08:09 | XMS_ITS ---
Author Name [facility] Organization Unknown Care Team Organization Name Specialty Phone Email Start Date End Da alberto [facility] CHRISTIANO KLEIN Primary Care 10/20/2022 10/11/2023
--- OUTSIDE RECORDS SUMMARY | 2024-05-03 08:09 | XMS_ITS | Clinical Summary ---
Author Organization [facility] Address [address] [place] [address] Care Team Providers Care Sample Coordinator Name Role Phone Pcp, No MD Primary [...] Assessment & Plan (06/21/2018 5:41 PM EDT): ONMI - 7 is high compared to previous visits partly falsely high 2/2 recent events. Overall her mental status has improved - increase lexapro to 20mg daily - return in 4 weeks for further assessment - continue to follow up with psychotherapist at [facility] - call [phone] or [phone] if the [...] get back on control pills with an Trimmer Loader referral later. Resolved Problems Problem Noted Date [...] Master's degree (e.g., MA, MS, David, MEd, PLATE ROLLER, ASTRID) 10/17/2019 Comments No Sex and Gender [...] AB/AG Negative Negative 10/17/2019 5:51 PM EDT [facility] Blood specimen (specimen) Venous blood specimen / Unknown Venipuncture / Unknown 10/17/2019 3:09 PM EDT 10/17/2019 3:13 PM EDT Narrative [facility] - 10/17/2019 5:51 PM EDT This test is a 4th generation HIV Antigen-Antibody Combination assay, using a chemiluminescent microparticle immunoassay, for the simultaneous qualitative detection of human immuno- deficiency virus (HIV) p24 antigen and antibodies to HIV type 1 (HIV-1) and/or HIV type 2 (HIV-2) in human serum or plasma. The Francisco Tablet Technician HIV Ag/Ab Combo assay is intended to [...] LAB BLOOD ORDERABLES NO STAT Final Result [facility] [address] [place] [address], [place] [phone] from Last 3 Months or Most Recently Relevant to Health Maintenance Insurance MEDICAID HUSKY D [facility] - OUT OF STATE Care Teams Sample Coordinator Relationship Specialty Start Date End Date Yesica Gordon MD [address] [place] [address] PCP - General 11/11/23
--- OUTSIDE RECORDS SUMMARY | 2024-05-03 08:09 | XMS_ITS | Encounter Summary ---
Author Organization [facility] Address [address] [place] [address] Care Team Providers Care Workers Compensation Coordinator Name Role Phone Shahida Moss Primary Care Provider [phone] Encounter Details Date Type Department Care Team (Latest Contact Info) Description 02/18/2020 Lab Requisition [facility] COVID Drive Through [address] [place] [address] [address] [place] [address] Mariano Noyola PA-C [address] [place] [address] Encounter for laboratory testing for COVID-19 virus [...] PORTER Not-Detec porter 02/19/2020 11:49 PM EST [facility] Comment:Interpretation: The viral RNA was not detected, making the COVID-19 diagnosis less likely. Clinical correlation is highly recommended.Final report signed by Ana Esparza, Ph.D., Laboratory DirectorTests performed at [facility] Nasopharyngeal swab / Unknown 02/18/2020 1:14 PM EST 02/18/2020 1:14 PM EST Narrative [facility] EVE - CATHY - 02/19/2020 11:49 PM EST Performed by [facility] [address] [place] [address], CLIA# [id number] and [place] License# [id number] Mariano Noyola PA-C MICROBIOLOGY - NERAL ORDERABLES NOE MORGAN documented in this encounter Visit Diagnoses Diagnosis Encounter for laboratory testing for COVID-19 virus documented in this encounter Care Teams Workers Compensation Coordinator Relationship Specialty Start Date End Date Shahida Moss [address] [place] [address] PCP - General 02/18/20 documented as of this encounter
--- OUTSIDE RECORDS SUMMARY | 2024-05-03 08:09 | XMS_ITS | Encounter Summary ---
Author Organization [facility] Address [address] [place] [address] Care Team Providers Care Industrial Maintenance Instructor Name Role Phone Shahida Moss Primary Care Provider [phone] Encounter Details Date Type Department Care Team (Latest Contact Info) Description 02/27/2020 Lab Requisition [facility] COVID Drive Through [address] [place] [address] [address] [place] [address] Mariano Noyola PA-C [address] [place] [address] Encounter for laboratory testing for COVID-19 virus [...] recommended.Final report signed by Lu Roman, Ph.D., [facility], Laboratory DirectorTests performed at [facility] Nasopharyngeal swab / Unknown 02/27/2020 11:33 AM EST 02/27/2020 11:33 AM EST Narrative [facility] - 02/28/2020 7:58 PM EST Performed by [facility] [address] [place] [address], CLIA# [id number] and [place] License# [id number] Mariano Noyola PA-C MICROBIOLOGY - NERAL ORDERABLES NOE MORGAN documented in this encounter Visit Diagnoses Diagnosis Encounter for laboratory testing for COVID-19 virus documented in this encounter Care Teams Industrial Maintenance Instructor Relationship Specialty Start Date End Date Shahida Moss [address] [place] [address] PCP - General 02/18/20 documented as of this encounter
--- OUTSIDE RECORDS SUMMARY | 2024-05-03 08:09 | XMS_ITS | Clinical Summary ---
Author Organization [facility] Address [address] [place] [address] Care Team Providers Care It Risk And Assurance Manager Name Role Phone Shahida Moss Primary Care Provider [phone] Social History Tobacco Use Types Packs/Day Years [...] age to complete this topic Care Teams It Risk And Assurance Manager Relationship Specialty Start Date End Date Shahida Moss [address] [place] [address] PCP - General 02/18/20
--- NOTE | 2024-05-03 08:10 | MHC.OFFWIV ---
Intake Vital Signs 05/03/24 08:14 Height 5 ft 7 in Weight 155 lb 4 oz BMI 24.3 BP 124/72 Blood Pressure Location Rt brachial Position Sitting Respiration 13 Pulse 92 Pulse Source Pulse Oximeter Temp 100.0 F Temp Source Oral Pulse Oximetry (%) 98 Oxygen Delivery Method Room Air Intake Visit Reasons: est/body discomfort return from walkin on wednesday Intake Note: Patient tested positive for the flu last Wednesday, patient complaining of swollen tonsils and unable to swallow, feeling fatigue and fever getting worse. Patient Tobacco Use Status: Never used Tobacco Allergies No Known Allergies Allergy (Verified 05/03/24 08:35) Medication List - Last Reconciled 05/03/24 by MIGUELINA Garcia-JAMES [Adderall XR 30 mg PO 1XD] azithromycin For 250 mg dose pack: take 500 mg today (day 1), then 250 mg for 4 days (days 2-5) PO cetirizine (Zyrtec) 10 mg PO DAILY clindamycin phosphate 1% 1 appl topical DAILY escitalopram oxalate 20 mg PO DAILY 30 days fluticasone propionate 50 mcg/actuation (Flonase Allergy Relief) 1 spray intranasal BID prednisone 40 mg (2 x 20 mg) PO DAILY 3 days Do you need a note to return to daycare/school/sports/work: Yes HPI HPI Comments History of Present Illness Details History The patient is a 29-year-old female presenting with complaints of swollen tonsils, difficulty swallowing, fatigue, and fever. - Her symptoms began on Wednesday; however, she was diagnosed with the flu on Wednesday. - Initial management included azithromycin and prednisone, which she is currently taking. - While some improvement has been noted, a slight fever reoccurred today, and her tonsillar swelling persists. - She is experiencing notable dysphagia, impacting her ability to eat, though fluid intake remains adequate. - Nbkh-qms-wfzdtuc symptom relief with DayQuil and NyQuil has been utilized. - Antiviral treatment for influenza was not initiated previously. Physical Exam General: Awake, alert. No apparent distress Eyes: Sclera and conjunctiva clear bilaterally Nose: Nares patent, turbinates within normal limits, no sinus tenderness with palpation bilaterally Ears: Tympanic membranes intact and clear bilaterally Throat: Moist mucosa membrane, pharynx within normal limits, tonsils WNL, uvula midline, managing secretions, shotty ac adenopathy bilat Cardiovascular: Regular rate and rhythm Respiratory: Clear to auscultation bilaterally Results - Influenza test: Positive result on Wednesday Discussion Notes I discussed with the patient the current status of her influenza and pharyngitis. She is experiencing significant discomfort, particularly with swallowing, and has a recurring fever. Despite ongoing antibiotic and corticosteroid treatment, her symptoms persist. I explained the benefits of initiating Tamiflu to reduce the viral load given the flu diagnosis and extended the prednisone course to assist with inflammation. After evaluating her clinical status, I recommended extending her off work until Wednesday, allowing additional recovery time. I provided instructions for her pharmacy, [facility] in [place], and ensured refills were sent for the prednisone (additional 3 days) and prescribed Tamiflu. We discussed that if symptoms worsen or fail to improve, she should return for reassessment. Assessment and Plan 1. Influenza: Initiation of oseltamivir (Tamiflu) is warranted to address the viral load due to ongoing flu symptoms, expected to assist in recovery despite delayed start. The situation will be re-evaluated if symptom progression occurs. 2. Pharyngitis: Continued corticosteroid therapy with prednisone is necessary given tonsil discomfort and inflammation. Adequate hydration and supportive care remain pivotal. Ongoing monitoring of symptoms will occur. Complete Zpak. Patient Instructions - Commence Tamiflu as prescribed to address the flu. - Continue prednisone for three additional days as directed. - Maintain hydration; increase fluid intake as swallowing allows. - Rest as much as possible and refrain from returning to work this week, resuming on Wednesday. - Seek medical attention if symptoms escalate or fail to improve. Consent Patient was informed and verbally consented to the use of an ambient scribe for clinic note documentation during this visit. [facility] Medical History Sickle cell trait syndrome No pertinent past medical history Surgical History H/O tooth extraction Family History Other Mental health disorder Substance abuse Social History (Updated 05/01/24 @ 09:06 by Katey Díaz CMA) Household Members: None Housing: Apartment Do you presently have visiting nurse or other home services: No Alcohol intake: never Patient Tobacco Use Status: Never used Tobacco e-Cigarette/Vaping Use: Never Used Second Hand Smoke Exposure: No service: No Current occupational status: employed Current occupation: [employer] Sexual orientation: Don't Know Cognitive needs: No Hearing needs: No Vision needs: No Physical Exam Vital Signs: Last Vital Signs Temp 100.0 F 05/03/24 08:14 Pulse 92 05/03/24 08:14 Resp 13 05/03/24 08:14 BP 124/72 05/03/24 08:14 Pulse Ox 98 05/03/24 08:14 Oxygen Delivery Method Simple Mask 05/03/24 08:14 BMI result Body Mass Index 24.3 Assessment & Plan Assessment & Plan (1) Influenza: Code(s): J11.1 - Influenza due to unidentified influenza virus with other respiratory manifestations (2) Pharyngitis: Code(s): J02.9 - Acute pharyngitis, unspecified Qualifiers: Pharyngitis/tonsillitis etiology: other specified organisms Qualified Code(s): J02.8 - Acute pharyngitis due to other specified organisms Plan . Medications: New oseltamivir (Tamiflu) 75 mg PO Q12H 5 days 10 caps 0RF Refilled prednisone 40 mg (2 x 20 mg) PO DAILY 3 days 6 tabs 0RF Patient Instructions: Influenza (flu) is an infection in the lungs and breathing passages. It is caused by the influenza virus. There are different strains, or types, of the flu virus from year to year. Unlike the common cold, the flu comes on suddenly and the symptoms can be more severe. These symptoms include a cough, congestion, fever, chills, fatigue, aches, and pains. These symptoms may last for a few weeks. Although the flu can make you feel very sick, it usually doesn't cause serious health problems. Home treatment is usually all you need for flu symptoms. But your doctor may prescribe antiviral medicine to prevent other health problems, such as pneumonia, from developing. The risk of other health problems from the flu is highest for young children (under 5), older adults (over 65), women, people with long-term health conditions, people who live in nursing homes or long-term care centres, and indigenous peoples. How can you care for yourself at home? Get plenty of rest. Drink plenty of fluids. If you have to limit fluids because of a health problem, talk with your doctor before you increase the amount of fluids you drink. Take an cpkq-wdu-amtmhnq pain medicine if needed, such as acetaminophen (Tylenol), ibuprofen (Advil, Motrin), or naproxen (Aleve), to relieve fever, headache, and muscle aches. Read and follow all instructions on the label. No one younger than 18 should take aspirin. It has been linked to Skip syndrome, a serious illness. Take any prescribed medicine exactly as directed. Do not smoke. Smoking can make the flu worse. If you need help quitting, talk to your doctor about stop-smoking programs and medicines. These can increase your chances of quitting for good. If the skin around your nose and lips becomes sore, put some petroleum jelly (such as Vaseline) on the area. To ease coughing: Suck on cough drops or plain, hard candy. Try an knnr-rqs-ulxnznw cough or cold medicine. Read and follow all instructions on the label. Raise your head at night with an extra pillow. This may help you rest if coughing keeps you awake. To avoid spreading the flu Wash your hands regularly, and keep your hands away from your face. Stay home from school, work, and other public places until you are feeling better and your fever has been gone for at least 24 hours. The fever needs to have gone away on its own without the help of medicine. Ask people living with you to talk to their doctors about preventing the flu. They may get antiviral medicine to keep from getting the flu from you. To prevent the flu in the future, get the flu vaccine every fall. Encourage people living with you to get the vaccine. Cover your mouth when you cough or sneeze. If you can, cough or sneeze into the bend of your elbow, not your hands. When should you call for help? Call 911 anytime you think you may need emergency care. For example, call if: You have severe trouble breathing. You have a seizure. Call your doctor or nurse advice line now or seek immediate medical care if: You have trouble breathing. You have a fever with a stiff neck or a severe headache. You have pain or pressure in your chest or belly. You have a fever or cough that returns after getting better. You feel very sleepy, dizzy, or confused. You are not urinating. You have severe muscle pain. You have severe weakness, or you are unsteady. You have medical conditions that are getting worse Watch closely for changes in your health, and be sure to contact your doctor or nurse advice line if: You do not get better as expected. You are having a problem with your medicine. Coding Level of Care Code Est Pt Level 4 (80156) Diagnoses Influenza J11.1 Pharyngitis due to other organism J02.8 Pharyngitis/tonsillitis etiology: other specified organisms
[2024-05-03 08:14] VITALS: BP 124/72; PULSE 92; RESP 13; TEMP 37.8; O2SAT 98; BMI 24.3
== END 2024-05-03 08:41 | disposition home or self-care (01) ==
PROVIDERS: PCP Internal Medicine; Visit Provider Nurse Practitioner Family
DX: J11.1 Influenza due to unidentified influenza virus with other respiratory manifestations (principal); J02.8 Acute pharyngitis due to other specified organisms

== ENCOUNTER → 2024-05-03 08:04 | Outpatient (BNVA) | payer OTHER, SELFPAY | PROVIDERS: PCP Internal Medicine ==

== ENCOUNTER 2024-06-05 15:07 | Outpatient (AMB) | payer OTHER, SELFPAY ==
--- NOTE | 2024-06-05 15:47 | MHC.PC.OV ---
Vital Signs 06/05/24 15:53 Height 5 ft 7 in BP 108/64 Blood Pressure Location Rt brachial Position Sitting Respiration 12 Pulse 64 Pulse Source Pulse Oximeter Pulse Oximetry (%) 96 Oxygen Delivery Method Room Air Intake Visit Reasons: 6 Months Intake Note: Six month follow up [employer] Required: No Allergies No Known Allergies Allergy (Verified 05/03/24 08:35) Tobacco use date assessed: 11/12/23 Dental Screening Dental Screen Date: 11/12/23 HPI HPI Comments History of Present Illness Details 29-year-old female with a past medical history of sickle cell trait, anemia, MDD, PTSD, ADHD presenting for follow up Anemia: She has sickle cell trait. She was recently seen by her skin fitter at [facility]. She was noted to be anemic. She is having heavy menstrual periods with clotting. Her labs here last month with Hgb 10.7 and iron of 30. 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 BH: She was admitted at [facility] between 11/05/2022 and 11/11/2022 for major depression. She notes seek psychiatric elevation because she was unable to sleep despite taking melatonin. She needs brand name adderall. Received generic and does not tolerate it She states that she is followed by a psychiatrist at [facility] monthly and sees a therapist every other week. Her psychiatrist manages her psychotropic medications. She has history of ADHD, MDD, and PTSD. ROS see HPI PHYSICAL EXAM: GENERAL: Alert and oriented x 3. NAD EYES: EOMI. Anicteric. HENT: Moist mucous membranes. No scleral icterus. No cervical lymphadenopathy. LUNGS: Clear to auscultation bilaterally. CARDIOVASCULAR: Regular rate and rhythm. No murmur. No JVD. ABDOMEN: Soft, non-tender +bs EXTREMITIES: No edema. Non-tender. SKIN: No rashes or lesions. Warm. NEUROLOGIC: No focal neurological deficits. CN II-XII grossly intact PSYCHIATRIC: Inappropriate giggling at times [facility] Medical History Sickle cell trait syndrome No pertinent past medical history Surgical History H/O tooth extraction Family History Other Mental health disorder Substance abuse Social History Household Members: None Housing: Apartment Do you presently have visiting nurse or other home services: No Alcohol intake: never Patient Tobacco Use Status: Never used Tobacco e-Cigarette/Vaping Use: Never Used Second Hand Smoke Exposure: No service: No Current occupational status: employed Current occupation: [employer] Sexual orientation: Don't Know Cognitive needs: No Hearing needs: No Vision needs: No Questionnaire Thrive Questionnaire Date Thrive assessed: 11/12/23 NOMI-7 AMB Questionnaire NOMI-7 Date NOMI - 7 assessed: 11/12/23 Source: Developed by Drs. Martin Beard, Rolanda Olivier, Mickey Messina and colleagues, with an educational lasha from [email or web address]. Physical exam (Primary Care) Vital Signs: Last Vital Signs Pulse 64 06/05/24 15:53 Resp 12 06/05/24 15:53 BP 108/64 06/05/24 15:53 Pulse Ox 96 06/05/24 15:53 Oxygen Delivery Method Room Air 06/05/24 15:53 Tobacco/Smoking Status: Tobacco use Status Tobacco use date assessed 11/12/23 06/05/24 15:48 Patient Tobacco Use Status Never used Tobacco 06/05/24 15:48 e-Cigarette/Vaping Use Never Used 06/05/24 15:48 Thrive Assessment: Date of Thrive Assessment Date Thrive assessed 11/12/23 06/05/24 15:48 Coding Level of Care Code Est Pt Level 3 (36857) Diagnoses Recurrent major depressive disorder, in partial remission F33.41 Active/Remission status: in partial remission Major depression recurrence: recurrent PTSD (post-traumatic stress disorder) F43.10 Sickle cell trait syndrome D57.3 POTS (postural orthostatic tachycardia syndrome) G90.A Assessment & Plan Assessment & Plan (1) MDD (major depressive disorder): Code(s): F32.9 - Major depressive disorder, single episode, unspecified Category: Medical Qualifiers: Active/Remission status: in partial remission Major depression recurrence: recurrent Qualified Code(s): F33.41 - Major depressive disorder, recurrent, in partial remission (2) PTSD (post-traumatic stress disorder): Code(s): F43.10 - Post-traumatic stress disorder, unspecified Category: Medical (3) Sickle cell trait syndrome: Code(s): D57.3 - Sickle-cell trait Category: Medical (4) POTS (postural orthostatic tachycardia syndrome): Code(s): G90.A - Postural orthostatic tachycardia syndrome [POTS] Category: Medical Plan ADD-Change adderall to brand name only. Is routinely ordered by psych POTS-she is interested in following up with cardiology for consultation Orders: Referrals Cardiology Referral G90.A - Postural orthostatic tachycardia syndrome [POTS]
[2024-06-05 15:53] VITALS: BP 108/64; PULSE 64; RESP 12; O2SAT 96
--- OUTSIDE RECORDS SUMMARY | 2024-06-05 17:40 | XMS_ITS | Continuity of Care Document ---
Author Organization [facility] vices Address [address] [place] [address] Phone Care Team Providers Care Regulatory Product Manager Name Role Phone Katlyn Gayle MD Unavailable Unavailable Allergies, Adverse Reactions, Alerts Substance Reaction Status Criticality No Known Allergies Active No Inform ation Procedures Procedure Date Prophylaxis-Adult Oral Hygiene Instructions Bitewings-Four Films Intraoral-Periapical Each Additional Isidro m Intraoral-Periapical Each Additional Isidro m Treatment Plan Not Started Resin-Based Composite-One Surface, Poste rior Treatment Plan In Process Time [facility] Informed Consent Periodic Oral Evaluation-Established Pat ient Treatment Plan In Process Prophylaxis-Adult Oral Hygiene Instructions Bitewings-Four Films Periodic Oral Evaluation-Established Pat ient Treatment Plan In Process Prophylaxis-Adult Oral Hygiene Instructions Bitewings-Four Films Intraoral-Periapical First Film 017 Intraoral-Periapical Each Additional Isidro m [employer]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 Evaluation-Problem Focused Treatment Plan [facility] Oral Evaluation-Problem Focused Treatment Plan In Process Time [facility] CROWN; ADDIT'L VISIT Treatment Plan In Process Time [facility] CROWN; ADDIT'L VISIT Treatment Plan In Process Time [facility] Prefabricated Post And Core In Addition To [employer] Treatment Plan In Process Time [facility] Prophylaxis-Adult Oral Hygiene Instructions Bitewings-Four Films Intraoral-Periapical [...] Poste rior Treatment Plan In Process Time [facility] Resin-Based Composite-Three Surfaces, Po sterior Treatment Plan In Process Time [facility] Resin-Based Composite-Two Surfaces, Post erior Treatment Plan In Process Time [facility] Intraoral-Periapical First Film 014 Limited Oral Evaluation-Problem Focused Treatment Plan In Process Time [facility] Sedative Filling Resin-Based Composite-One Surface, Poste rior Treatment Plan [facility] Sedative Filling Treatment Plan In Process Time [facility] Periodic Oral Evaluation-Established Pat ient Treatment Plan In Process Prophylaxis-Child Bitewings-Four Films Intraoral-Periapical First Film 014 Intraoral-Periapical Each Additional Isidro m topical application of fluoride 014 No Charge Resin-Based Composite-Two Surfaces, Post erior Treatment Plan In Process Time [facility] Advance Directives Directive Yes / No Effective Date File Name No Information Encounters Encounter Description Practice Location Reason(s) For Visit Diagnoses Date Provider Providers Copied on Encounter [facility], [address] [place] [address], [address], tel:[phone] [facility] No Information 1 Irwin Potts. [address] [facility], [id number] [place], [address], [place]. tel:[phone] [facility], [address] [place] [address], [address], [place] tel:[phone] [facility] Dental Encounter for dental exam and cleaning w/o abnormal findings 0 Soy Loco. [address] [facility], [id number] [place], [id number], [place]. tel:[phone] [facility], [address] [place] [address], [address], [place] tel:[phone] [facility] Dental Dental caries, unspecified 9 Bimal Ruiz. [address] [facility], [id number] [place], [id number], [place]. tel:[phone] [facility], [address] [place] [address], [address], [place] tel:[phone] [facility] Dental Encounter for screening for dental disorders 5-201 9 Bimal Ruiz. Clara Li, [id number] [place], [id number], [place]. tel:[phone] [facility], [place], [address], [place] tel:[phone] [facility] Dental Encounter for dental exam and cleaning w/o abnormal findings 9 Ahmet Moralez. [address], [id number] [place], [id number], [place]. tel:[phone] [facility], [address] [place] [address], [address], [place] tel:[phone] [facility] Dental Encounter for screening for dental disorders 0 7 Bimal Ruiz. Clara Li, [id number] [place], [id number], [place]. tel:[phone] [facility], [facility] [place], [address], [place] tel:[phone] [facility] Dental Encounter for dental exam and cleaning w/o abnormal findings 7 Soy Loco. [address], [id number] [place], [id number], [place]. tel:[phone] [facility], [facility] [place], [address], [place] tel:[phone] [facility] Dental Encounter for dental exam and cleaning w/o abnormal findings 6 Bimal Ruiz. Clara Li, [id number] [place], [id number], [place]. tel:[phone] Referring Provider: Joseph Wallis, Clara Li [id number] [address] [place] [address], [address] . tel:[phone] [facility], [place], [address], [place] tel:[phone] [facility] Dental Encounter for dental exam and cleaning w/o abnormal findings 6 Bimal Ruiz. [address], [id number] [place], [id number], [place]. tel:[phone] Referring Provider: Joseph Wallis, Clara Li [id number], [place], [address] . tel:[phone] [facility], [address], [place], [address], [place] tel:[phone] [facility] Dental Encounter for dental exam and cleaning w/o abnormal findings Jul- 0- 6 Bimal Whitakerer. [address], [id number] [place], [id number], [place]. tel:[phone] Referring Provider: Joseph Wallis, Clara Li [id number] [place], [address] . tel:[phone] [facility], [address] [place], [address], [place] tel: [phone] [facility] Dental Encounter for dental exam and cleaning w/o abnormal findings Jul-0 7 6 Bimal Ruiz. [address], [id number] [place], [id number], [place]. tel:[phone] Referring Provider: Joseph Wallis, Clara Li [id number] [place], [address] . tel:[phone] [facility], [address], [place], [address], [place] tel:[phone] [facility] Dental Encounter for dental exam and cleaning w/o abnormal findings 6- 6 Bimal Ruiz. [address], [id number] [place], [id number], [place]. tel:[phone] [facility], [address] [place], [address], [place] tel:[phone] [facility] Dental Encounter for dental exam and cleaning w/o abnormal findings Apr-2 3- 6 Bimal Ruiz. [address], [id number] [place], [id number], [place]. tel:[phone] [facility], [address], [place], [address], [place] tel:[phone] [facility] Dental Encounter for dental exam and cleaning w/o abnormal findings Apr- 5- 6 Soy Loco. [address], [id number] [place], [id number], [place]. tel:[phone] [facility], [address] [place], [address], [place] tel:[phone] [facility] Dental Dental examination Sep-0 5 Bimal Ruiz. [address], [id number] [place], [id number], [place]. tel:[phone] Referring Provider: Joseph Wallis, [address] [id number] 00, [place], [address] . tel:[phone] [facility], [address], [place], [address], [place] tel:[phone] [facility] Dental Dental examination Sep- 5 Soy Loco. [address], [id number] [place], [id number], [place]. tel:[phone] Referring Provider: Claudy Olivier, [address] [id number], [place], [address] . tel:[phone] [facility], [address] [place], [address], [place] tel:[phone] [facility] Dental Dental examination Dec- 4 No Information [facility], [address] [place], [address], [place] tel:[phone] [facility] Dental Dental examination Nov- 4 No Information [facility], [address] [place], [address], [place] tel:[phone] [facility] Dental Dental examination 4 No Information [facility], [address], [place], [address], [place] tel: [phone] [facility] Dental Dental examination 4 No Information [facility], [address], [place], [address], [place] tel: [phone] [facility] Dental Dental examination Sep-0 4 Bimal Ruiz. Clara Li, [id number] [place], [id number], [place]. tel:[phone] Referring Provider: Joseph Wallis, [address] Li [id number] [place], [address] . tel:[phone] [facility], [address], [place], [address], [place] tel: [phone] [facility] Dental Dental examination 4 Bimal Ruiz. Clara Li, [id number] [place], [id number], [place]. tel:[phone] Referring Provider: Joseph Wallis, Clara Li [id number] 00, [place], [address] . tel:[phone] [facility], [address], [place], [address], [place] tel: [phone] [facility] Dental Dental examination 4 Bimal Ruiz. [address] Li, [id number] [place], [id number], [place]. tel:[phone] Referring Provider: Joseph Wallis, Clara Li [id number] [place], [address] . tel:[phone] [facility], [address], [place], [address], [place] tel: [phone] [facility] Dental Dental examination 4 Bimal Ruiz. [address] Li, [id number] [place], [id number], [place]. tel:[phone] [facility], [place], [address], tel:[phone] [facility] Dental Dental examination 4 Bimal Ruiz. [address] Li, [id number] [place], [id number], [place]. tel:[phone] Referring Provider: Joseph Wallis, Clara Li [id number] [address] [place] [address], [address] . tel:[phone] [facility], [place], [address], tel:[phone] [facility] Dental Dental examination 4 Soy Loco. Clara Li, [id number] [place], [id number], [place]. tel:[phone] Referring Provider: Claudy Olivier, [address] [id number] [address], [place], [address] . tel:[phone] [facility], [place], [address], [place] tel:[phone] [facility] Dental No Information 3 No Information [facility], [place], [address], [place] tel:[phone] [facility] Dental Dental examination 3 Bimal Ruiz. Clara Li, [id number] [place], [id number], [place]. tel:[phone] Referring Provider: Joseph Wallis, Clara Li [id number] [address], [address] . tel:[phone] Family History Family Member Type Diagnosis Age At Onset No Information Payers Payer name Insurance type Covered libertarian ID Maylin zaldivar(s) D Medicaid [id number] Social History Type Description Quantity Date Captured [...]
--- OUTSIDE RECORDS SUMMARY | 2024-06-05 17:40 | XMS_ITS | Encounter Summary ---
Author Organization [facility] Address [address] [place] [address] Care Team Providers Care Refueling Rampman Name Role Phone Shahida Moss Primary Care Provider Encounter Details Date Type Department Care Team (Latest Contact Info) Description 02/18/2020 Lab Requisition [facility] COVID Drive Through [address] [place] [address] [address] [place] [address] Mariano Noyola PA-C [address] [place] [address] Encounter for laboratory testing for COVID-19 virus [...] PORTER Not-Detec porter 02/19/2020 11:49 PM EST [facility] Comment:Interpretation: The viral RNA was not detected, making the COVID-19 diagnosis less likely. Clinical correlation is highly recommended.Final report signed by Ana Esparza, Ph.D., Laboratory DirectorTests performed at [facility] Nasopharyngeal swab / Unknown 02/18/2020 1:14 PM EST 02/18/2020 1:14 PM EST Narrative [facility] - 02/19/2020 11:49 PM EST Performed by [facility] [address] [place] [address], CLIA# [id number] and [place] License# [id number] Mariano Noyola PA-C MICROBIOLOGY - NERAL ORDERABLES NOE MORGAN documented in this encounter Visit Diagnoses Diagnosis Encounter for laboratory testing for COVID-19 virus documented in this encounter Care Teams Refueling Rampman Relationship Specialty Start Date End Date Shahida Moss [address] [place] [address] PCP - General 02/18/20 documented as of this encounter
--- OUTSIDE RECORDS SUMMARY | 2024-06-05 17:40 | XMS_ITS | Clinical Summary ---
Author Organization [facility] Address [address] [place] [address] Care Team Providers Care Tool Room Lathe Operator Name Role Phone Pcp, No MD Primary [...] continue to follow up with psychotherapist at [facility] - call [phone] or [phone] if the [...] get back on control pills with an Process Control Technician referral later. Resolved Problems Problem Noted Date Diagnosed Date Resolved Date Anemia 10/17/2019 11/21/2019 Assessment & Plan (10/17/2019 3:12 PM EDT): previous CBC shows low Hb and elevated MCV. Pt not an alcoholic nor does she take meds affecting Hb - repeat CBC with ferritin, b12 and folate to evaluate further Immunizations Immunization Administration Dates Next Due Hpv Vaccine 9-valent [...] Master's degree (e.g., MA, MS, David, MEd, JIG AND FIXTURE BUILDER APPRENTICE, ASTRID) 10/17/2019 Comments No Sex and Gender [...] series) 2013 Pap Smear 2015 COVID-19 Vaccine (2023-2 5 season) 2023 Cervical Cancer Screening 02/04/2024 HPV/Cotest 02/04/2024 Influenza Vaccine (Season Ended) 2024 12/21/2017, 01/27/2016 DTaP,Tdap,and Td Vaccines (2 - Td or [...] 5 Years) and At-Risk Patients (6 to 49 [...] AB/AG Negative Negative 10/17/2019 5:51 PM EDT [facility] Blood specimen (specimen) Venous blood specimen / Unknown Venipuncture / Unknown 10/17/2019 3:09 PM EDT 10/17/2019 3:13 PM EDT Narrative [facility] - 10/17/2019 5:51 PM EDT This test is a 4th generation HIV Antigen-Antibody Combination assay, using a chemiluminescent microparticle immunoassay, for the simultaneous qualitative detection of human immuno- deficiency virus (HIV) p24 antigen and antibodies to HIV type 1 (HIV-1) and/or HIV type 2 (HIV-2) in human serum or plasma. The Francisco Slagger HIV Ag/Ab Combo assay is intended to [...] LAB BLOOD ORDERABLES NO STAT Final Result [facility] [address] [place] [address], [place] [phone] from Last 3 Months or Most Recently Relevant to Health Maintenance Insurance MEDICAID HUSKY D [facility] - OUT OF STATE Care Teams Tool Room Lathe Operator Relationship Specialty Start Date End Date Yesica Gordon MD [address] [place] [address] PCP - General 11/11/23
--- OUTSIDE RECORDS SUMMARY | 2024-06-05 17:41 | XMS_ITS | Clinical Summary ---
Author Organization [facility] Address [address] [place] [address] Care Team Providers Care Steam Cleaning Machine Operator Name Role Phone Shahida Moss Primary Care Provider [phone] Social History Tobacco Use Types Packs/Day Years [...] age to complete this topic Care Teams Steam Cleaning Machine Operator Relationship Specialty Start Date End Date Shahida Moss [address] [place] [address] PCP - General 02/18/20
--- OUTSIDE RECORDS SUMMARY | 2024-06-05 17:41 | XMS_ITS | Encounter Summary ---
Author Organization [facility] Address [address] [place] [address] Care Team Providers Care Pattern Generator Operator Name Role Phone Shahida Moss Primary Care Provider [phone] Encounter Details Date Type Department Care Team (Latest Contact Info) Description 03/28/2020 Lab Requisition [facility] COVID Drive Through [address] [place] [address] [address] [place] [address] Satya Henry MD [address] [place] [address] Encounter for laboratory testing for COVID-19 virus [...] Isra Lopez, Ph.D., Laboratory DirectorTests performed at [facility] Nasopharyngeal swab / Unknown 03/28/2020 12:49 PM EST 03/28/2020 12:49 PM EST Narrative NOE MORGAN - 03/29/2020 6:06 PM EST Performed by [facility] [address] [place] [address], CLIA# [id number] and [place] License# [id number] Satya Henry MD MICROBIOLOGY - GENER AL ORDERABLES NOE MORGAN documented in this encounter Visit Diagnoses Diagnosis Encounter for laboratory testing for COVID-19 virus documented in this encounter Care Teams Pattern Generator Operator Relationship Specialty Start Date End Date Shahida Moss [address] [place] [address] PCP - General 02/18/20 documented as of this encounter
--- OUTSIDE RECORDS SUMMARY | 2024-06-05 17:41 | XMS_ITS | Encounter Summary ---
Author Organization [facility] Address [address] [place] [address] Care Team Providers Care Bond Manager Name Role Phone Shahida Moss Primary Care Provider [phone] Encounter Details Date Type Department Care Team (Latest Contact Info) Description 02/27/2020 Lab Requisition [facility] COVID [address] Through [address] [place] [address] [address] [place] [address] Mariano Noyola PA-C [address] [place] [address] Encounter for laboratory testing for COVID-19 virus [...] recommended.Final report signed by Lu Roman, Ph.D., [facility], Laboratory DirectorTests performed at [facility] Nasopharyngeal swab / Unknown 02/27/2020 11:33 AM EST 02/27/2020 11:33 AM EST Narrative [facility] - 02/28/2020 7:58 PM EST Performed by [facility]., [address] [place] [address], CLIA# [id number] and [place] License# [id number] Mariano Noyola PA-C MICROBIOLOGY - NERAL ORDERABLES NOE MORGAN documented in this encounter Visit Diagnoses Diagnosis Encounter for laboratory testing for COVID-19 virus documented in this encounter Care Teams Bond Manager Relationship Specialty Start Date End Date Shahida Moss [address] [place] [address] PCP - General 02/18/20 documented as of this encounter
== END 2024-06-05 16:09 | disposition home or self-care (01) ==
LOC: HO.HMCFM 15:07
PROVIDERS: PCP Internal Medicine; Visit Provider Internal Medicine
DX: F33.41 Major depressive disorder, recurrent, in partial remission (principal); F43.10 Post-traumatic stress disorder, unspecified; D57.3 Sickle-cell trait; G90.A Postural orthostatic tachycardia syndrome [POTS]

== ENCOUNTER → 2024-06-05 15:07 | Outpatient (BNVA) | payer OTHER, SELFPAY | PROVIDERS: PCP Internal Medicine; Visit Provider Internal Medicine ==

== ENCOUNTER 2024-08-14 10:21 | Outpatient (AMB) | payer OTHER, SELFPAY ==
--- NOTE | 2024-08-14 10:24 | A.OFFPC_ITS ---
Vital Signs 08/14/24 10:28 Height 5 ft 7 in Weight 154 lb BMI 24.1 BP 98/56 L Blood Pressure Location Lt brachial Position Sitting Respiration 12 Pulse 74 Pulse Source Pulse Oximeter Temp 98.8 F Temp Source Oral Pulse Oximetry (%) 97 Oxygen Delivery Method Room Air Intake Visit Reasons: Paperwork Intake Note: Paperwork for the department of Children and Family and Services. Allergies No Known Allergies Allergy (Verified 08/14/24 10:25) Tobacco use date assessed: 08/14/24 Dental Screening Dental Screen Date: 08/14/24 Did you have a dental visit in the last 12 months?: Yes Did you have a dental problem in the last 6 months where you did not have access to dental care?: No Was dental information given to patient?: Patient has dentist HPI HPI Comments History of Present Illness Details 29-year-old female with a past medical h istory of sickle cell trait, anemia, MDD, PTSD, ADHD presenting for follow up Anemia: She has sickle cell trait. She is following with universal banker BH: MDD. controlled on current medications. ADD-brand name adderall. Received generic and does not tolerate it She states that she is followed by a psychiatrist at [place] monthly and sees a therapist every other week. Her psychiatrist manages her psychotropic medications. She has paperwork for foster/adoption. this is completed today ROS see HPI PHYSICAL EXAM: GENERAL: Alert and oriented x 3. NAD EYES: EOMI. Anicteric. NEUROLOGIC: No focal neurological deficits. CN II-XII grossly intact PSYCHIATRIC: Appropriate [facility] Medical History Sickle cell trait syndrome No pertinent past medical history Surgical History H/O tooth extraction Family History Other Mental health disorder Substance abuse Social History Household Members: None Housing: Apartment Do you presently have visiting nurse or other home services: No Alcohol intake: never Patient Tobacco Use Status: Never used Tobacco e-Cigarette/Vaping Use: Never Used Second Hand Smoke Exposure: No Use of substances other than those prescribed or required for medical reasons: Refusing to respond service: No Current occupational status: employed Current occupation: [employer] Sexual orientation: Don't Know Cognitive needs: No Hearing needs: No Vision needs: No Questionnaire Thrive Questionnaire Date Thrive assessed: 06/05/24 I am a: Patient What is your living situation today?: I have a steady place to live Within the past 12 months, did the food you bought not last and you didn't have the money to get more?: Sometimes True Within the past 12 months, did you worry whether your food would run out before you got money to buy more?: Never true Do you have trouble paying for medicines?: No Do you have trouble getting transportation to medical appointments?: No Do you have trouble paying your heating and electricity bill?: I choose not to answer this question Do you have trouble taking care of your child, family member or friend?: No Do you have trouble with day-to-day activities such as bathing, preparing meals, shopping, managing finances, etc.?: No Are you currently unemployed and looking for a job?: No Are you interested in more education?: No Please select the resources that you would like help with: Utilities Currently or been in a relationship where the following occur: No concerns reported THRIVE Score: 1 NOMI-7 AMB Questionnaire NOMI-7 Date NOMI - 7 assessed: 11/12/23 Source: Developed by Drs. Martin Beard, Rolanda Olivier, Mickey Messina and colleagues, with an educational lasha from [employer]. Physical exam (Primary Care) Vital Signs: Last Vital Signs Temp 98.8 F 08/14/24 10:28 Pulse 74 08/14/24 10:28 Resp 12 08/14/24 10:28 BP 98/56 L 08/14/24 10:28 Pulse Ox 97 08/14/24 10:28 Oxygen Delivery Method Room Air 08/14/24 10:28 BMI result Body Mass Index 24.1 Tobacco/Smoking Status: Tobacco use Status Tobacco use date assessed 08/14/24 08/14/24 10:32 Patient Tobacco Use Status Never used Tobacco 08/14/24 10:32 e-Cigarette/Vaping Use Never Used 08/14/24 10:32 Thrive Assessment: Date of Thrive Assessment Date Thrive assessed 06/05/24 08/14/24 10:32 Currently or been in a relationship where the following occur: No concerns reported Immunizations Boostrix Tdap 2.5 Lf unit-8 mcg-5 Lf/0.5 mL intramuscular syringe Performing Provider: Elida Soler MD Performing Location: [facility] Family Medicine Administered by: Reshma Finnegan MA on 08/14/24 11:00 Dose Route Admin Location Dispensed Lot Number Expiration Date ND Control Inspector 0.5 mL IM Left Deltoid 0.5 mL [id number] 10/18/26 [id number] Clickpass Total Dispensed Waste 0.5 mL 0 % VIS Given Date VIS Provided VIS Publication Date 08/14/24 Single Vaccine 20 Eligibility Eligibility Date Funding Source Not [facility] Eligible 08/14/24 Private Coding Level of Care Code Est Pt Level 4 (27413) Diagnoses ADHD (attention deficit hyperactivity disorder), inattentive type F90.0 Recurrent major depressive disorder, in partial remission F33.41 Major depression recurrence: recurrent Active/Remission status: in partial remission Sickle cell trait syndrome D57.3 Assessment & Plan Assessment & Plan (1) ADHD (attention deficit hyperactivity disorder), inattentive type: Code(s): F90.0 - Attention-deficit hyperactivity disorder, predominantly inattentive type Category: Medical (2) MDD (major depressive disorder): Code(s): F32.9 - Major depressive disorder, single episode, unspecified Category: Medical Qualifiers: Major depression recurrence: recurrent Active/Remission status: in partial remission Qualified Code(s): F33.41 - Major depressive disorder, recurrent, in partial remission (3) Sickle cell trait syndrome: Code(s): D57.3 - Sickle-cell trait Category: Medical Plan Chronic medical conditions are stable Continue follow up universal banker Continue follow up BH-stable Tdap given today Paperwork completed Orders: Orders TDaP Immunization Today Z23 - Encounter for immunization
[2024-08-14 10:28] VITALS: BP 98/56; PULSE 74; RESP 12; TEMP 37.1; O2SAT 97; BMI 24.1
== END 2024-08-14 11:19 | disposition home or self-care (01) ==
LOC: HO.HMCFM 10:22
PROVIDERS: PCP Internal Medicine; Visit Provider Internal Medicine
DX: F90.0 Attention-deficit hyperactivity disorder, predominantly inattentive type (principal); F33.41 Major depressive disorder, recurrent, in partial remission; D57.3 Sickle-cell trait; Z23 Encounter for immunization

== ENCOUNTER → 2024-08-14 10:21 | Outpatient (BNVA) | payer OTHER, SELFPAY | PROVIDERS: PCP Internal Medicine; Visit Provider Internal Medicine | DX: D57.3 Sickle-cell trait (principal); D64.9 Anemia, unspecified; F33.41 Major depressive disorder, recurrent, in partial remission; F43.10 Post-traumatic stress disorder, unspecified; F90.9 Attention-deficit hyperactivity disorder, unspecified type; Z02.82 Encounter for adoption services; Z28.39 Other underimmunization status; Z23 Encounter for immunization; Z13.30 Encounter for screening examination for mental health and behavioral disorders, unspecified | CPT/HCPCS: 90471; 90715 ==

== ENCOUNTER 2024-12-11 15:05 | Outpatient (AMB) | payer OTHER, SELFPAY ==
--- NOTE | 2024-12-11 15:08 | MHC.PC.OV ---
Vital Signs 12/11/24 15:17 Height 5 ft 7 in Weight 167 lb 2 oz BMI 26.2 BP 108/70 Blood Pressure Location Lt brachial Position Sitting Respiration 18 Pulse 94 Pulse Source Pulse Oximeter Temp 98.2 F Temp Source Oral Pulse Oximetry (%) 99 Oxygen Delivery Method Room Air Intake Visit Reasons: CPE Intake Note: cpe Phone Operator Required: No Allergies Seasonal Allergies Allergy (Severe, Verified 12/11/24 15:12) Sneezing Tobacco use date assessed: 12/11/24 Dental Screening Dental Screen Date: 12/11/24 Did you have a dental visit in the last 12 months?: Yes Did you have a dental problem in the last 6 months where you did not have access to dental care?: No Was dental information given to patient?: Patient has dentist HPI HPI Comments History of Present Illness Details 29-year-old female with a past medical history of sickle cell trait, anemia, MDD, PTSD, ADHD presenting for CPE Anemia: She has sickle cell trait. She is following with welding process engineer BH: MDD. controlled on current medications. ADD-brand name adderall. Received generic and does not tolerate it She states that she is followed by a psychiatrist at [place] monthly and sees a therapist every other week. Her psychiatrist manages her psychotropic medications. She was evaluated by cardiology for POTS (at [facility]). Partner reports she moves a lot in sleep, snores. She is frequently fatigue UTD automatic casting machine operator ROS see HPI PHYSICAL EXAM: GENERAL: Alert and oriented x 3. NAD EYES: EOMI. Anicteric. HENT: Moist mucous membranes. No scleral icterus. No cervical lymphadenopathy. LUNGS: Clear to auscultation bilaterally. CARDIOVASCULAR: Regular rate and rhythm. No murmur. No JVD. ABDOMEN: Soft, non-tender +bs EXTREMITIES: No edema. Non-tender. SKIN: No rashes or lesions. Warm. NEUROLOGIC: No focal neurological deficits. CN II-XII grossly intact PSYCHIATRIC: Cooperative. Appropriate mood and affect [facility] Medical History Sickle cell trait syndrome No pertinent past medical history Surgical History H/O tooth extraction Family History Other Mental health disorder Substance abuse Social History (Updated 12/11/24 @ 15:13 by [place] MA) Household Members: None Housing: Apartment Do you presently have visiting nurse or other home services: No Alcohol intake: never Patient Tobacco Use Status: Never used Tobacco e-Cigarette/Vaping Use: Never Used Second Hand Smoke Exposure: No service: No Current occupational status: employed Current occupation: [employer] Sexual orientation: Don't Know Cognitive needs: No Hearing needs: No Vision needs: No Questionnaire PHQ-9 Over the last 2 weeks, how often have you been bothered by any of the following problems? 1. Little interest or pleasure in doing things: not at all 2. Feeling down, depressed, or hopeless: several days 3. Trouble falling or staying asleep, or sleeping too much: several days 4. Feeling tired or having little energy: nearly every day 5. Poor appetite or overeating: more than half the days 6. Feeling bad about yourself - or that you are a failure or have let yourself or your family down: not at all 7. Trouble concentrating on things, such as reading the newspaper or watching television: several days 8. Moving or speaking so slowly that other people could have noticed. Or the opposite - being so fidgety or restless that you have been moving around a lot more than usual: more than half the days 9. Thoughts that you would be better off or of hurting yourself in some way: not at all Total score: 10 Depression Screening Interpretation: Positive Depression Screening Follow-up: Existing condition and In treatment Depression Screening Done: Yes 25191 - PHQ-9 Billing: Yes Source: Developed by Drs. Martin Beard, Rolanda Olivier, Mickey Messina and colleagues, with an educational lasha from [email or web address]. Thrive Questionnaire Date Thrive assessed: 06/05/24 I am a: Patient What is your living situation today?: I have a steady place to live Within the past 12 months, did the food you bought not last and you didn't have the money to get more?: Sometimes True Within the past 12 months, did you worry whether your food would run out before you got money to buy more?: Never true Do you have trouble paying for medicines?: No Do you have trouble getting transportation to medical appointments?: No Do you have trouble paying your heating and electricity bill?: I choose not to answer this question Do you have trouble taking care of your child, family member or friend?: No Do you have trouble with day-to-day activities such as bathing, preparing meals, shopping, managing finances, etc.?: No Are you currently unemployed and looking for a job?: No Are you interested in more education?: No Please select the resources that you would like help with: Utilities Currently or been in a relationship where the following occur: No concerns reported THRIVE Score: 1 AUDIT C Alcohol Use Questionnaire (AUDIT-C) 1. How often do you have a drink containing alcohol?: 2-4 times a month 2. How many drinks containing alcohol do you have on a typical day when you are drinking?: 1 or 2 3. How often do you have six or more drinks on one occasion?: Less than monthly Total Score: 3 NOMI-7 AMB Questionnaire NOMI-7 Date NOMI - 7 assessed: 12/11/24 Feeling nervous, anxious, or on edge: 2 = More than half the days Not being able to stop or control worryin = Several days Worrying too much about different things: 1 = Several days Trouble relaxin = More than half the days Being so restless that it is hard to sit still: 1 = Several days Becoming easily annoyed or irritable: 1 = Several days Feeling afraid as if something awful might happen: 1 = Several days Total NOMI-7 score (0-4 normal; 5-9 mild; 10-14 moderate; 15-21 severe): 9 Source: Developed by Drs. Martin Beard, Rolanda Olivier, Mickey Messina and colleagues, with an educational lasha from [email or web address]. NOMI-7 Assessment Billing NOMI-7 Assessment Tool: NOMI-7 Assessment 54645 Physical exam (Primary Care) Vital Signs: Last Vital Signs Temp 98.2 F 12/11/24 15:17 Pulse 94 12/11/24 15:17 Resp 18 12/11/24 15:17 BP 108/70 12/11/24 15:17 Pulse Ox 99 12/11/24 15:17 Oxygen Delivery Method Room Air 12/11/24 15:17 BMI result Body Mass Index 26.2 Tobacco/Smoking Status: Tobacco use Status Tobacco use date assessed 12/11/24 12/11/24 15:20 Patient Tobacco Use Status Never used Tobacco 12/11/24 15:20 e-Cigarette/Vaping Use Never Used 12/11/24 15:20 PHQ-9: PHQ-9 Score PHQ-9: Total score 10 12/11/24 15:21 Depression Screening Interpretation: Positive Depression Screening Follow-up: Existing condition and In treatment Thrive Assessment: Date of Thrive Assessment Date Thrive assessed 06/05/24 12/11/24 15:20 Currently or been in a relationship where the following occur: No concerns reported Coding Level of Care Code Est Pt Prev Care 18-39y(83769) Diagnoses Physical exam Z00.00 Sickle cell trait syndrome D57.3 POTS (postural orthostatic tachycardia syndrome) G90.A Recurrent major depressive disorder, in partial remission F33.41 Major depression recurrence: recurrent Active/Remission status: in partial remission Additional Codes NOMI-7 Assessment Billing - NOMI-7 Assessment Tool: NOMI-7 Assessment 26962 ([id number]) PHQ-9 - 35127 - PHQ-9 Billing: Yes ([id number]) Assessment & Plan Assessment & Plan (1) Physical exam: Code(s): Z00.00 - Encounter for general adult medical examination without abnormal findings (2) Sickle cell trait syndrome: Code(s): D57.3 - Sickle-cell trait Category: Medical (3) POTS (postural orthostatic tachycardia syndrome): Code(s): G90.A - Postural orthostatic tachycardia syndrome [POTS] Category: Medical (4) MDD (major depressive disorder): Code(s): F32.9 - Major depressive disorder, single episode, unspecified Category: Medical Qualifiers: Major depression recurrence: recurrent Active/Remission status: in partial remission Qualified Code(s): F33.41 - Major depressive disorder, recurrent, in partial remission Plan 29 year old female presenting for CPE Interval history reviewed Preventive measures for age discussed Continue automatic casting machine operator follow up snoring, fatigue-referral for sleep study Orders: Orders TSH reflex Free T4 12/11/24 D57.3 - Sickle-cell trait, E78.00 - Pure hypercholesterolemia, unspecified, F33.41 - Major depressive disorder, recurrent, in partial remission, F90.0 - Attention-deficit hyperactivity disorder, predominantly inattentive type, R35.89 - Other polyuria Hemoglobin A1c 12/11/24 D57.3 - Sickle-cell trait, E78.00 - Pure hypercholesterolemia, unspecified, F33.41 - Major depressive disorder, recurrent, in partial remission, F90.0 - Attention-deficit hyperactivity disorder, predominantly inattentive type, R35.89 - Other polyuria Complete Blood Count Auto Diff 12/11/24 D57.3 - Sickle-cell trait, E78.00 - Pure hypercholesterolemia, unspecified, F33.41 - Major depressive disorder, recurrent, in partial remission, F90.0 - Attention-deficit hyperactivity disorder, predominantly inattentive type, R35.89 - Other polyuria Comprehensive Met. Panel 12/11/24 D57.3 - Sickle-cell trait, E78.00 - Pure hypercholesterolemia, unspecified, F33.41 - Major depressive disorder, recurrent, in partial remission, F90.0 - Attention-deficit hyperactivity disorder, predominantly inattentive type, R35.89 - Other polyuria Lipid Panel 12/11/24 D57.3 - Sickle-cell trait, E78.00 - Pure hypercholesterolemia, unspecified, F33.41 - Major depressive disorder, recurrent, in partial remission, F90.0 - Attention-deficit hyperactivity disorder, predominantly inattentive type, R35.89 - Other polyuria RT PSG in-lab sleep study 12/11/24 G47.61 - Periodic limb movement disorder, R06.83 - Snoring Medications: Refilled cetirizine (Zyrtec) 10 mg PO DAILY 90 tabs 3RF
[2024-12-11 15:17] VITALS: BP 108/70; PULSE 94; RESP 18; TEMP 36.8; O2SAT 99; BMI 26.2
--- OUTSIDE RECORDS SUMMARY | 2024-12-11 19:18 | XMS_ITS | Encounter Summary ---
Author Organization [facility] Address [address] [place] [address] Care Team Providers Care Argon Tester Name Role Phone Shahida Moss Primary Care Provider [phone] Encounter Details Date Type Department Care Team (Latest Contact Info) Description 03/28/2020 Lab Requisition [facility] COVID [address] Through [address] [place] [address] [address] [place] [address] Satya Henry MD [address] [place] [address] Encounter for laboratory testing for COVID-19 virus Social History Tobacco Use Types Packs/Day Years Used Date Smoking Tobacco: Never Assessed Comments Unknown Sex and Gender Information Value Date Recorded Sex Assigned at Not on file Legal Sex Female 12:02 PM EST Gender Identity Not on file Sexual [...] Isra Lopez, Ph.D., Laboratory DirectorTests performed at [facility] Microbiology Nasopharyngeal swab / Unknown 03/28/2020 12:49 PM EST 03/28/2020 12:49 PM EST Narrative NOE MORGAN - 03/29/2020 6:06 PM EST Performed by [facility] [address] [place] [address], CLIA# [id number] and [place] License# [id number] us Satya Henry MD MICROBIOLOGY - GENERAL ORDER BENY Final Result NOE MORGAN documented in this encounter Visit Diagnoses Diagnosis Encounter for laboratory testing for COVID-19 virus documented in this encounter Care Teams Argon Tester Relationship Specialty Start Date End Date Shahida Moss [address] [place] [address] PCP - General 02/18/20 documented as of this encounter
--- OUTSIDE RECORDS SUMMARY | 2024-12-11 19:18 | XMS_ITS | Clinical Summary ---
Author Organization [facility] Address [address] [place] [address] Care Team Providers Care Ios Programmer Name Role Phone Shahida Moss Primary Care Provider [phone] Social History Tobacco Use Types Packs/Day Years [...] Pap Smear (Ages 21-65) 2015 Influenza Vaccine 09/22/2024 COVID-19 Vaccine (1 - 2023-2 5 season) 2024 HPV Vaccines (No Doses Required) Completed Pneumococcal Vaccine: Pediat maddison (0-5 Years) and At-Risk Patients (6 to 49 Years) Aged Out No longer eligible b ased on patient's age to complete this topic Insurance [facility] Care Teams Ios Programmer Relationship Specialty Start Date End Date Ajay Shahida Randal [address] [place] [address] PCP - General 02/18/20
--- OUTSIDE RECORDS SUMMARY | 2024-12-11 19:18 | XMS_ITS | Encounter Summary ---
Author Organization [facility] Address [address] [place] [address] Care Team Providers Care Shine Worker Name Role Phone Shahida Moss Primary Care Provider [phone] Encounter Details Date Type Department Care Team (Latest Contact Info) Description 02/18/2020 Lab Requisition [facility] COVID Drive Through [address] [place] [address] [address] [place] [address] Mariano Noyola PA-C [address] [place] [address] Encounter for laboratory testing for COVID-19 virus [...] PORTER Not-Detec porter 02/19/2020 11:49 PM EST NOE MORGAN Comment:Interpretation: The viral RNA was not detected, making the COVID-19 diagnosis less likely. Clinical correlation is highly recommended.Final report signed by Ana Esparza, Ph.D., Laboratory DirectorTests performed at [facility] Nasopharyngeal swab / Unknown 02/18/2020 1:14 PM EST 02/18/2020 1:14 PM EST Narrative NOE MORGAN - 02/19/2020 11:49 PM EST Performed by [facility] [address] [place] [address], CLIA# [id number] and [place] License# [id number] Mariano Noyola PA-C MICROBIOLOGY - GENERAL OR DERABLES Final Result NOE MORGAN documented in this encounter Visit Diagnoses Diagnosis Encounter for laboratory testing for COVID-19 virus documented in this encounter Care Teams Shine Worker Relationship Specialty Start Date End Date Shahida Moss [address] [place] [address] PCP - General 02/18/20 documented as of this encounter
--- OUTSIDE RECORDS SUMMARY | 2024-12-11 19:18 | XMS_ITS | Clinical Summary ---
Author Organization [facility] Address [address] [address] Phone Care Team Providers Care Carpenter Mine Name Role Phone Pcp, Unknown Primary Care Provider Unavailabl e Allergies No known active allergies Medications * This document contains information received from the source organization and may not represent a complete record from that organization. escitalopram oxalate (LEXAPRO) 20 MG tablet Take 20 mg by mouth daily. Active Active Problems Problem Noted Date Diagnosed Date Suicide attempt 11/05/2022 Major depression, recurrent 09/10/2018 Social History Tobacco Use Types Packs/Day Years Used Date Smoking Tobacco: Never Smokeless Tobacco: Never Alcohol Use Standard Drinks/Week Comments Yes 0 (1 standard drink = 0.6 oz pur e alcohol) occasional Education Answer Date Recorded Are you interested in more education? Not on saul e 06/19/2022 Are you concerned about learning? Not on file 06/19/2022 No 06/19/2022 No 06/19/2022 Digital Access Answer Date Recorded No 07/18/2022 No 07/18/2022 No 07/18/2022 Reliable internet access at home? Not on file 07/18/2022 Device with a working camera? Not on file Intimate Partner Violence Answer Date R ecorded Are you denied basic needs s uch as food, clothing, or medical care? No 11/05/2022 In the past 12 months have y ou been in a relationship with a person who hurts, threatens, or tries to control you? No 11/05/2022 Are you denied basic needs s uch as food, clothing, or medical care? No 11/05/2022 In the past 12 months have y ou been in a relationship with a person who hurts, threatens, or tries to control you? No 11/05/2022 Comments Unknown Sex and Gender Information Value Date Recorded Sex Assigned at Female 09/09/2018 4:31 PM EDT Legal Sex Female 4:26 PM EDT Gender Identity Female 09/09/2018 4:31 PM EDT Sexual Orientation Bisexual 09/11/2018 3: 36 PM EDT Last Filed Vital Signs Vital Sign Reading Time Taken Comments Blood Pressure 110/68 11/06/2022 11:14 AM EDT Pulse 73 11/06/2022 11:14 AM EDT Temperature 36.5 C (97.7 F) 11/06/2022 11:14 AM EDT Respiratory Rate 16 11/06/2022 11:14 AM EDT Oxygen Saturation 99% 11/06/2022 11:14 AM EDT Inhaled Oxygen Concentration - - Weight 63.5 kg (140 lb) 11/05/2022 5:01 PM EDT Height 170.2 cm (5' 7 ) 11/05/2022 5:01 PM EDT Body Mass Index 21.93 11/05/2022 5:01 PM EDT Plan of Treatment Health Maintenance Due Date Last Done Comments DEPRESSION SCREENING 2006 HIV ONE-TIME SCREENING (18-6 5 YEARS) 02/04/2012 PAP SMEAR 2015 SMOKING STATUS SCREENING (On ce After 26 Yrs) 02/04/2020 INFLUENZA VACCINE (#1) 2024 COVID-19 VACCINE (2024-2 6 season) 2024 Adult Td,Tdap Booster 10/13/2025 10/14/2015 HEPATITIS C SCREENING Completed 10/17/2019 HEPATITIS A VACCINES Aged Out No long er eligible based on patient's age to complete this topic HIB VACCINES Aged Out No longer eligi ble based on patient's age to complete this topic MENINGOCOCCAL VACCINES (ACWY) Aged Out No longer eligible based on patient's age to complete this topic MENINGOCOCCAL VACCINES (B) Aged Out N o longer eligible based on patient's age to complete this topic PNEUMOCOCCAL VACCINES (0-49 years) Aged Out No longer eligible based on patient's age to complete this topic Medical Devices Not on file Insurance [employer] ADMIN[employer]AT[employer] ADMINISTRAT[employer] BENEFITS ADMINISTRATORS [employer] BENEFITS ADMINISTRATORS Advance Directives For more information, please contact: [phone] (9AM - 5PM [facility], Wednesday-Wednesday) * Full Code (Presumed) (Latest Code Status on File) Date Activated Date Inactivated Comments 09/10/2018 1:59 PM 09/13/2018 2:18 PM Care Teams Carpenter Mine Relationship Specialty Start Date End Date Pcp, Unknown PCP - General 11/05/22 Additional Source Comments The information contained in this document represents components of the legal health record. It is not the complete legal health record.[facility]
--- OUTSIDE RECORDS SUMMARY | 2024-12-11 19:18 | XMS_ITS | Clinical Summary ---
Author Organization [facility] Address [address] [place] [address] Care Team Providers Care Alining Inspector Name Role Phone Pcp, No MD Primary [...] continue to follow up with psychotherapist at [facility] - call 911 or [phone] if the [...] get back on control pills with an Bag Machine Helper referral later. Resolved Problems Problem Noted Date [...] Master's degree (e.g., MA, MS, David, MEd, ELECTRICAL DRAFTER, ASTRID) 10/17/2019 Comments No Sex and Gender [...] 64 10/17/2019 2:01 PM EDT Temperature 36.5 C (97.7 F) 10/17/2019 2:01 PM EDT Respiratory Rate - - Oxygen Saturation 97% [...] 19+ 3-dose series) 2013 Pap Smear 2015 Cervical Cancer Screening 02/04/2024 HPV/Cotest 02/04/2024 COVID-19 Vaccine (1 - 2023-2 5 season) 2024 Influenza Vaccine (#1) 2024 8, 01/27/2016 DTaP,Tdap,and Td Vaccines (2 - Td [...] AB/AG Negative Negative 10/17/2019 5:51 PM EDT [facility] Blood specimen (specimen) Venous blood specimen / Unknown Venipuncture / Unknown 10/17/2019 3:09 PM EDT 10/17/2019 3:13 PM EDT Narrative [facility] - 10/17/2019 5:51 PM EDT This test is a 4th generation HIV Antigen-Antibody Combination assay, using a chemiluminescent microparticle immunoassay, for the simultaneous qualitative detection of human immuno- deficiency virus (HIV) p24 antigen and antibodies to HIV type 1 (HIV-1) and/or HIV type 2 (HIV-2) in human serum or plasma. The [employer] HIV Ag/Ab Combo assay is intended to [...] LAB BLOOD ORDERABLES NO STAT Final Result [facility] [address] [place] [address], [place] [phone] from Last 3 Months or Most Recently Relevant to Health Maintenance Insurance MEDICAID HUSKY D ANTHEM - OUT OF STATE Care Teams Alining Inspector Relationship Specialty Start Date End Date Yesica Gordon MD [address] [place] [address] PCP - General 11/11/23
--- OUTSIDE RECORDS SUMMARY | 2024-12-11 19:18 | XMS_ITS | Encounter Summary ---
Author Organization [facility] Address [address] [place] [id number] Care Team Providers Care Physiotherapy Aide Name Role Phone Shahida Moss Primary Care Provider [phone] Encounter Details Date Type Department Care Team (Latest Contact Info) Description 02/27/2020 Lab Requisition [facility] COVID [address] Through [address] [place] [address] [address] [place] [address] Mariano Noyola PA-C [address] [place] [id number] Encounter for laboratory testing for COVID-19 virus [...] Not-Detec ernestina 02/28/2020 7:58 PM EST NOE MORGAN Comment:Interpretation: The viral RNA was not detected, making the COVID-19 diagnosis less likely. Clinical correlation is highly recommended.Final report signed by Lu Roman, Ph.D., [facility], Laboratory DirectorTests performed at [facility] Microbiology Nasopharyngeal swab / Unknown 02/27/2020 11:33 AM EST 02/27/2020 11:33 AM EST Narrative NOE MORGAN - 02/28/2020 7:58 PM EST Performed by [facility] [address] [place] [id number], CLIA# [id number] and [place] License# [id number] Mariano Noyola PA-C MICROBIOLOGY - GENERAL OR DERABLES Final Result NOE MORGAN documented in this encounter Visit Diagnoses Diagnosis Encounter for laboratory testing for COVID-19 virus documented in this encounter Care Teams Physiotherapy Aide Relationship Specialty Start Date End Date Shahida Moss [address] [place] [address] PCP - General 02/18/20 documented as of this encounter
--- OUTSIDE RECORDS SUMMARY | 2024-12-11 19:18 | XMS_ITS ---
Author Name [facility] Organization Unknown Care Team Organization Name Specialty Phone Email Start Date End Da [facility] Primary Care CHRISTIANO KLEIN Primary Care 10/20/2022 10/11/2023
== END 2024-12-11 15:39 | disposition home or self-care (01) ==
PROVIDERS: PCP Internal Medicine; Visit Provider Internal Medicine
DX: Z00.00 Encounter for general adult medical examination without abnormal findings (principal); D57.3 Sickle-cell trait; G90.A Postural orthostatic tachycardia syndrome [POTS]; F33.41 Major depressive disorder, recurrent, in partial remission

== ENCOUNTER 2024-12-11 15:05 | Outpatient (REF) | payer OTHER, SELFPAY ==
[2024-12-11 18:21] LABS: MANUAL DIFF FLAG NO
[2024-12-11 18:39] LABS: Hematocrit 31.8 % (37.0-47.0); Hemoglobin 9.7 g/dl (12.0-16.0); Imm Gran Abs Auto 0.02 X10*3/uL (0.00-0.03); Imm Gran Pct Auto 0.4 % (0.0-0.4); Lymphocytes Absolute Auto 1.9 X10*3/uL (1.2-4.9); Mean Corpuscular HGB Conc 30.5 g/dl (31.0-35.0); Mean Corpuscular Hemoglobin 29.0 pg (27.0-33.0); Mean Corpuscular Volume 94.9 fL (80.0-98.0); NRBC Abs Auto 0.000 X10*3/uL (0.0-0.012); NRBC Pct Auto 0.0 /100WBC (0.0-0.2); Platelet Count 337 X10*3/uL (160-400); Red Blood Count 3.35 X10*6/uL (4.20-5.50); White Blood Count 5.4 X10*3/uL (4.8-10.8)
[2024-12-11 18:51] LABS: Alanine Aminotransferase 14 U/L (0-31); Albumin Level 4.4 g/dL (3.5-5.0); Alkaline Phosphatase 55 U/L (39-117); Anion Gap 11 (12-20); Aspartate Amino Transferase 23 U/L (5-31); Blood Urea Nitrogen 7 mg/dL (9-16); Calcium 9.4 mg/dL (8.4-10.2); Carbon Dioxide 26 mmol/L (22-29); Chloride 106 mmol/L (96-108); Cholesterol 253 mg/dL (<200); Estimated Glomerular Filt Rate > 60; HDL Cholesterol 82 mg/dL (>40); Potassium 3.8 mmol/L (3.3-5.1); Sodium 139 mmol/L (135-145); Total Protein 7.7 g/dL (6.5-8.0); Triglycerides 68 mg/dL (<150)
== END 2024-12-11 15:06 | disposition home or self-care (01) ==
LOC: HO.WFDLDS 15:05
PROVIDERS: PCP Internal Medicine; Visit Provider Internal Medicine
DX: Z00.00 Encounter for general adult medical examination without abnormal findings (principal); F33.41 Major depressive disorder, recurrent, in partial remission; D57.3 Sickle-cell trait; G90.A Postural orthostatic tachycardia syndrome [POTS]; F90.0 Attention-deficit hyperactivity disorder, predominantly inattentive type; E78.00 Pure hypercholesterolemia, unspecified; R35.89 Other polyuria
CPT/HCPCS: 36415; 80053; 80061; 83036; 84443; 85025; 96127